=== PATIENT | female | born 1950 | race Caucasian/White ===

== ENCOUNTER 2017-01-14 08:40 | Emergency (ER) | payer OTHER ==
[2017-01-14 08:46] VITALS: TEMP 98.6; BMI 28.8
--- NOTE | 2017-01-14 09:20 | PDOC ---
History of Present Illness - General History Source: Patient Exam Limitations: No Limitations - History of Present Illness Initial Comments: 01/14/17 09:47 The patient is a 66 year old female with a significant PMH of CVA, COPD, CAD s/ p stents, HTN, hyperlipidemia, thyroid disease, lung CA who presents to the emergency department with left hand and left foot pain s/p fall 1 week ago. The patient states that she has taken Ambien and trazadone for sleep aide for the past 2 years, and has noted that she has been sleepwalking during the past 2 months. She reports going to the kitchen to eat, then falling sleeping on feet and falling 3 times previously and doesnt remember the falls when they occur. The patient states that she fell in this way last Friday, resulting in left hand pain along the 1st-3rd th fingers and left foot pain along the 5th toe. The patient notes taking Motrin this morning to some relief. She does not think she hit her head, as she has had no headache, neck pain, back pain, other extremity pain. The patient denies chest pain, shortness of breath, headache and dizziness. Denies fever, chills, nausea, vomit, diarrhea and constipation. Denies dysuria, frequency, urgency and hematuria. Allergies: NKA Past surgical history: Cardia stent insertions. Lobectomy. Lumbar fusion & right total hip replacement. Social history: No reported cigarette, alcohol, or drug use. PCP: Dr. Mena <Christopher Cleveland - Last Filed: 01/14/17 09:47> <Miguelito Jerez - Last Filed: 01/14/17 19:36> - General Chief Complaint: Injury Stated Complaint: INJURY/HTN/EDEMA Time Seen by Provider: 01/14/17 09:09 Past History <Christopher Cleveland - Last Filed: 01/14/17 09:47> - Past Medical History Anemia: Yes (IRON DEFICIENCY ANEMIA) Asthma: No Cancer: Yes (RIGHT LUNG) Cardiac Disorders: Yes (CAD, [place] 2001, A-FIB, PAD) CVA: Yes (TIA, july 2015) COPD: Yes CHF: No Dementia: No Diabetes: No GI Disorders: Yes (DIVERTICULOSIS,GASTRITIS,HIATAL HERNIA,HEMORRHOIDS) Disorders: No HTN: Yes Hypercholesterolemia: Yes Liver Disease: Yes (PROMINENT CBD, hep C in 2006) Psychiatric Problems: Yes (ANXIETY.) Seizures: No (hx of "twitching" in july 2015) Thyroid Disease: Yes (HYPOTHYROID) Lung CA: Yes (ca, and emphazema, achalasia) - Surgical History Abdominal Surgery: No Appendectomy: No Cardiac Surgery: Yes (seven stents) Cholecystectomy: No Lung Surgery: Yes (lobectomy) Neurologic Surgery: No Orthopedic Surgery: Yes (lumbar fusion; right total hip replacement 12/01/14) - Immunization History Immunization Up to Date: Yes - Suicide/Smoking/Psychosocial Hx Smoking Status: Yes Smoking History: Never smoked Have you smoked in the past 12 months: Yes Number of Cigarettes Smoked Daily: 1 If you are a former smoker, when did you quit?: 2009 Information on smoking cessation initiated: No 'Breaking Loose' booklet given: 12/06/12 Hx Alcohol Use: No Drug/Substance Use Hx: No Substance Use Type: Prescribed, Tranquilizers Hx Substance Use Treatment: Yes (detox, rehab, [facility]) <Miguelito Jerez - Last Filed: 01/14/17 19:36> - Past Medical History Allergies/Adverse Reactions: Allergies Allergy/AdvReac Type Severity Reaction Status Date / Time No Known Allergies Allergy Verified 01/14/17 08:46 Home Medications: Ambulatory Orders Valacyclovir HCl [Valtrex -] 500 mg PO DAILY 04/18/12 Aspirin [ASA -] 81 mg PO DAILY #0 tab.chew 04/22/12 Trazodone HCl [Desyrel -] 200 mg PO HS #0 tablet 12/10/12 Diltiazem [Cardizem -] 120 mg PO DAILY 09/08/14 Venlafaxine HCl ER [Effexor Xr -] 75 mg PO DAILY 09/08/14 Docusate Sodium [Colace -] 100 mg PO BID PRN 12/22/14 Omeprazole [Prilosec (RX)] 40 mg PO DAILY 12/22/14 Pravastatin Sodium [Pravachol -] 20 mg PO HS 12/22/14 Albuterol Sulfate Inhaler - [Ventolin HFA Inhaler -] 2 inh PO Q6H PRN 08/20/15 Budesonide/Formeterol Fumarate [SYMBICORT 80/4.5mcg -] 1 inh PO BID 08/20/15 Cholecalciferol (Vitamin D3) [Vitamin D3] 50,000 unit PO WEEKLY 08/20/15 Multivitamin [Poly-Vitamin] 1 each PO DAILY 08/20/15 Sennosides [Senna] 2 tab PO DAILY 08/20/15 Levothyroxine [Synthroid -] 125 mcg PO DAILY@0700 09/12/15 Zolpidem Tartrate [Ambien] 5 mg PO HS 09/12/15 Albuterol 0.083% Nebulizer Kristi [Ventolin 0.083% Nebulizer Soln -] 1 amp NEB Q6H PRN #0 amp 09/15/15 Ibuprofen [Motrin -] 800 mg PO BID PRN #60 09/15/15 Methadone [Dolophine -] 130 mg PO DAILY 01/18/16 Trauma Specific PMHX - Complaint Specific PMHX Arthritis: Yes <Miguelito Jerez - Last Filed: 01/14/17 19:36> Review of Systems - Review of Systems Able to Perform ROS?: Yes Comments:: 01/14/17 09:47 Constitutional - Pt denies Fever, Chills, weakness, HEENT: denies vision changes, sore throat Respiratory: Denies cough, sob, hemoptysis Cardiac: denies chest pain, palpitations, light headedness, leg swelling Abd/GI: denies abd pain, nausea, vomiting, blood per rectum, melena, diarrhea : denies dysuria, frequency, discharge Musculoskeletal - (+) Left hand pain along 1st & 4th digits. (+) Left foot pain along 5th digit. denies back pain, joint swelling Skin - denies bruising, erythema, rash Neurological: denies headache, numbness, focal weakness, tingling, ataxia, weakness Hematologic: denies anemia, easy bruising, easy bleeding <Christopher Cleveland - Last Filed: 01/14/17 09:47> *Physical Exam - Vital Signs Last Vital Signs Temp Pulse Resp BP Pulse Ox 98.6 F 86 17 182/74 92 L 01/14/17 08:41 01/14/17 08:41 01/14/17 08:41 01/14/17 08:41 01/14/17 08:41 - Physical Exam Comments: 01/14/17 09:48 GENERAL: The patient is awake, alert, and fully oriented, Nontoxic - in no acute distress. HEAD: Normocephalic, atraumatic. EYES: extraocular movements intact, sclera anicteric, conjunctiva clear. NECK: Normal range of motion, supple ABDOMEN: Soft, nontender, EXTREMITIES: Normal range of motion of shoulder/elbows/wrists/hip/knee/ankle, mild tenderness to palpation at the L 2-3 metacarpals and along base of thumb, mild pitting edema without any erythema/induration, no tenderness in the wrist, mild tenderness at L pinky toe, no tenderness at 5th metatarsal, or on dorsum of foot, mild pitting edema b/l on LE NEUROLOGICAL: No facial assymetry, Normal speech, PSYCH: Normal mood, normal affect. SKIN: Warm, Dry, normal turgor, BACK: No focal mildline tenderness on cervical/thoracic/lumbar region <Christopher Cleveland - Last Filed: 01/14/17 09:47> - Vital Signs Last Vital Signs Temp Pulse Resp BP Pulse Ox 98.6 F 86 17 182/74 92 L 01/14/17 08:41 01/14/17 08:41 01/14/17 08:41 01/14/17 08:41 01/14/17 08:41 <Miguelito Jerez - Last Filed: 01/14/17 19:36> Procedures - Consent Consent obtained: Verbal - Splinting Splint Location: Left: Wrist Pre-Proc Neuro Vasc Exam: normal Hand-Made Type: orthoglass Splint Type: Yes: Ulnar Post-Proc Neuro Vasc Exam: normal Naldo Bandage: 4" Sling: Yes Complications: No Post splint xray: No Good repositioning: No <Miguelito Jerez - Last Filed: 01/14/17 19:36> Medical Decision Making - Medical Decision Making 01/14/17 09:27 66y F hx of cva, copd, cad s/p stents, htn, hl, thyroid disease, lung ca, presents s/p fall - pt states that she took ambien and trazadone as sleep aides and she occasionally sleepwalk, last week, she thinks she did so again and fell when she was in the kitchen. she has had pain to her L hand and L pinky toe since. No other injuries including head injury, neck pain, chets pain, back pain. pts vitals reviewed noted for sat of 92, suspect may be secondary to her copd On exam pt has some edema and mild tenderness on her left hand and L pinky will ck xrays to r/o fx pt declines pain meds currently. A portion of this note was documented by scribe services under my direction. I have reviewed the details of the note, within reason, and agree with the documentation with the following case summary and management plan written by me 01/14/17 11:04 pts xrays noted for olbique slightly displaced fracture i midshaft of 4th metacarpal with minimally displaced fx at the base of 3rd proximal phylanx. pt put in a ulnar gutter dw with PA from dr. felder service agree with management will see the pt today if she can make it over to their office pt states she is unsure due to her transportation requiring approval and some lead time. <Miguelito Jerez - Last Filed: 01/14/17 19:36> *DC/Admit/Observation/Transfer - Attestations Scribe Attestion: 01/14/17 09:48 Documentation prepared by Christopher Cleveland, acting as medical billing clerk for Miguelito Jerez MD. <Christopher Cleveland - Last Filed: 01/14/17 09:47> - Discharge Dispostion Admit: No <Miguelito Jerez - Last Filed: 01/14/17 19:36> Diagnosis at time of Disposition: Metacarpal bone fracture Qualifiers: Encounter type: initial encounter Metacarpal bone: fourth Fracture type: closed Metacarpal location: shaft Fracture alignment: displaced Laterality: left Qualified Code(s): S62.325A - Displaced fracture of shaft of fourth metacarpal bone, left hand, initial encounter for closed fracture Finger fracture, left Qualifiers: Encounter type: initial encounter Finger: middle finger Fracture type: closed Phalanx: proximal Fracture alignment: displaced Qualified Code(s): S62.613A - Displaced fracture of proximal phalanx of left middle finger, initial encounter for closed fracture - Discharge Dispostion Disposition: HOME Condition at time of disposition: Improved - Referrals Referrals: Jessica Mena MD [Primary Care Provider] - Pradeep Davies MD [Staff Physician] - - Patient Instructions Printed Discharge Instructions: DI for Finger Fracture Additional Instructions: Return to the emergency department immediately with ANY new, persistent or worsening symptoms. Keep your splint dry. See orthopedics in 2-3 days for evaluation. Take tyolenol or ibuprofen for pain Keep your arm elevated to minimze swelling. You MUST call and follow up with your orthopedist in 2-3 days for further evaluation of your symptoms. Results were discussed with you. Please make sure your doctor reviews the results of your emergency evaluation. Print Language: ROMANSH
[2017-01-14 12:49] VITALS: BP 153/104; PULSE 79
== END 2017-01-14 12:50 | disposition home or self-care (01) ==
LOC: JER 08:40
PROC: 2W3DX1Z Immobilization of Left Lower Arm using Splint (ICD-10-PCS; principal; 2017-01-14)
DX: S62.325A Displaced fracture of shaft of fourth metacarpal bone, left hand, initial encounter for closed fracture (principal); S62.613A Displaced fracture of proximal phalanx of left middle finger, initial encounter for closed fracture; W18.39XA Other fall on same level, initial encounter; Y93.89 Activity, other specified; Y92.030 Kitchen in apartment as the place of occurrence of the external cause; I25.10 Atherosclerotic heart disease of native coronary artery without angina pectoris; I10 Essential (primary) hypertension; Z95.5 Presence of coronary angioplasty implant and graft; Z87.891 Personal history of nicotine dependence; F11.20 Opioid dependence, uncomplicated; J44.9 Chronic obstructive pulmonary disease, unspecified; E78.00 Pure hypercholesterolemia, unspecified; I48.91 Unspecified atrial fibrillation; Z79.01 Long term (current) use of anticoagulants; E03.9 Hypothyroidism, unspecified; F41.9 Anxiety disorder, unspecified; Z85.118 Personal history of other malignant neoplasm of bronchus and lung
CPT/HCPCS: 29125; 73110-TC-LT; 73130-TC-LT; 73630-TC-LT; 99282-25

== ENCOUNTER 2017-04-08 18:20 | Emergency (ER) | payer OTHER ==
--- NOTE | 2017-04-08 19:23 | PDOC ---
Rapid Medical Evaluation Medical Evaluation: Allergies Allergy/AdvReac Type Severity Reaction Status Date / Time No Known Allergies Allergy Verified 01/14/17 08:46 04/08/17 19:21 I have performed a brief in-person evaluation of this patient. The patient presents with a chief complaint of pain to right wrist after slip and fall today. Patient reports slipped on water today and fell onto right side of body. Denies hitting head or loosing consciousness. Denies numbness in fingertips Pertinent physical exam findings: NAD unlabored breathing heart s1s2 right wrist with deformity, unable to pronate, supinate, flex or extend I have ordered the following: xray analgesia iv site The patient will proceed to the Ed for further evaluation.
[2017-04-08 19:30] VITALS: BP 148/78; PULSE 96; TEMP 98.6; BMI 29.2
--- NOTE | 2017-04-08 20:14 | PDOC ---
History of Present Illness - General History Source: Patient - History of Present Illness Initial Comments: 04/08/17 20:52 The patient is a 67 year old female with a significant PMH of CVA, COPD, CAD s/ p stents, HTN, hyperlipidemia, thyroid disease, lung CA who presents to the emergency department s/p slip and fall landing on outstretched right arm today. The patient reports pain, swelling, and bruising to her right wrist. She is right hand dominant. She denies numbness or tingling to right hand or digits. The patient denies chest pain, shortness of breath, headache and dizziness. Denies fever, chills, nausea, vomit, diarrhea and constipation. Denies dysuria, frequency, urgency and hematuria. Allergies: NKA Past surgical history: Cardiac stent insertions. Lobectomy. Lumbar fusion & right total hip replacement. Social history: No reported cigarette, alcohol, or drug use. PCP: Dr. Mena <Santa Coreas - Last Filed: 04/08/17 20:52> - General History Source: Patient <Ralph Rodarte - Last Filed: 04/09/17 19:34> - General Chief Complaint: Bone Injury Stated Complaint: INJURY Time Seen by Provider: 04/08/17 20:06 Past History <Santa Coreas - Last Filed: 04/08/17 20:52> - Past Medical History Anemia: Yes (IRON DEFICIENCY ANEMIA) Asthma: No Cancer: Yes (RIGHT LUNG) Cardiac Disorders: Yes (CAD, [place] 2001, A-FIB, PAD) CVA: Yes (TIA, july 2015) COPD: No CHF: No Dementia: No Diabetes: No GI Disorders: Yes (DIVERTICULOSIS,GASTRITIS,HIATAL HERNIA,HEMORRHOIDS) Disorders: No HTN: Yes Hypercholesterolemia: Yes Liver Disease: Yes (PROMINENT CBD, hep C in 2006) Psychiatric Problems: Yes (ANXIETY.Methadone program x 30 years) Seizures: No (hx of "twitching" in july 2015) Thyroid Disease: Yes (HYPOTHYROID) Lung CA: Yes (ca, and emphazema, achalasia) - Surgical History Abdominal Surgery: No Appendectomy: No Cardiac Surgery: Yes (seven stents, angiogram 03/2017) Cholecystectomy: No Lung Surgery: Yes (lobectomy) Neurologic Surgery: No Orthopedic Surgery: Yes (lumbar fusion; right total hip replacement 12/01/14) - Immunization History Immunization Up to Date: Yes - Suicide/Smoking/Psychosocial Hx Smoking Status: Yes Smoking History: Former smoker Have you smoked in the past 12 months: No Number of Cigarettes Smoked Daily: 1 If you are a former smoker, when did you quit?: 2009 Information on smoking cessation initiated: No 'Breaking Loose' booklet given: 12/06/12 Hx Alcohol Use: No Drug/Substance Use Hx: Yes (30 yrs ago) Substance Use Type: Prescribed, Tranquilizers Hx Substance Use Treatment: Yes (detox, rehab, [facility]) <Ralph Rodarte - Last Filed: 04/09/17 19:34> - Past Medical History Allergies/Adverse Reactions: Allergies Allergy/AdvReac Type Severity Reaction Status Date / Time No Known Allergies Allergy Verified 04/08/17 22:24 Home Medications: Ambulatory Orders Valacyclovir HCl [Valtrex -] 500 mg PO DAILY 04/18/12 Aspirin [ASA -] 81 mg PO DAILY #0 tab.chew 04/22/12 Trazodone HCl [Desyrel -] 200 mg PO HS #0 tablet 12/10/12 Diltiazem [Cardizem -] 120 mg PO DAILY 09/08/14 Venlafaxine HCl ER [Effexor Xr -] 75 mg PO DAILY 09/08/14 Docusate Sodium [Colace -] 100 mg PO BID PRN 12/22/14 Omeprazole [Prilosec (RX)] 40 mg PO DAILY 12/22/14 Pravastatin Sodium [Pravachol -] 20 mg PO HS 12/22/14 Albuterol Sulfate Inhaler - [Ventolin HFA Inhaler -] 2 inh PO Q6H PRN 08/20/15 Budesonide/Formeterol Fumarate [SYMBICORT 80/4.5mcg -] 1 inh PO BID 08/20/15 Cholecalciferol (Vitamin D3) [Vitamin D3] 50,000 unit PO WEEKLY 08/20/15 Multivitamin [Poly-Vitamin] 1 each PO DAILY 08/20/15 Sennosides [Senna] 2 tab PO DAILY 08/20/15 Levothyroxine [Synthroid -] 125 mcg PO DAILY@0700 09/12/15 Zolpidem Tartrate [Ambien] 5 mg PO HS 09/12/15 Albuterol 0.083% Nebulizer Kristi [Ventolin 0.083% Nebulizer Soln -] 1 amp NEB Q6H PRN #0 amp 09/15/15 Ibuprofen [Motrin -] 800 mg PO BID PRN #60 09/15/15 Methadone [Dolophine -] 130 mg PO DAILY 01/18/16 Ibuprofen 800 mg PO TID #30 tablet 04/08/17 Oxycodone HCl/Acetaminophen [Percocet 5-325 mg Tablet] 1 - 2 tab PO Q6H #20 tablet MDD 4 04/08/17 Review of Systems - Review of Systems Able to Perform ROS?: Yes Comments:: 04/08/17 20:53 CONSTITUTIONAL: Absent: fever, no chills, no fatigue HEAD: Absent: trauma EYES: Absent: visual changes ENT: Absent: ear pain, no sore throat CARDIOVASCULAR: Absent: chest pain, no palpitations RESPIRATORY: Absent: cough, no SOB GI: Absent: abdominal pain, no nausea, no vomiting, no constipation, no diarrhea GENITOURINARY: Absent: dysuria, no frequency, no hematuria MUSCULOSKELETAL: (+) right wrist, pain, swelling, and bruising. Absent: back pain, no neck pain. SKIN: Absent: rash NEURO: Absent: headache <Santa Coreas - Last Filed: 04/08/17 20:52> *Physical Exam - Vital Signs Last Vital Signs Temp Pulse Resp BP Pulse Ox 98.6 F 96 H 20 148/78 95 04/08/17 19:26 04/08/17 19:26 04/08/17 19:26 04/08/17 19:26 04/08/17 19:26 - Physical Exam Comments: 04/08/17 20:54 GENERAL: Well-appearing, well-nourished. No apparent distress. HEENT: Normocephalic, atraumatic. PERRL, EOM intact. CARDIOVASCULAR: Normal S1, S2. Regular rate and rhythm. PULMONARY: Clear to auscultation bilaterally. ABDOMEN: Soft, non-distended, non-tender. EXTREMITIES: (+) Right wrist has obvious deformity, tenderness to palpation, ecchymosis, pulses intact and symmetric, extremity is warm. ROM of right wrist deferred secondary to pain. Remainder of extremities are normal without gross deformities. SKIN: Warm, dry. No rash NEUROLOGICAL: No focal neurological deficits. <Santa Coreas - Last Filed: 04/08/17 20:52> - Vital Signs Last Vital Signs Temp Pulse Resp BP Pulse Ox 98.6 F 96 H 20 148/78 95 04/08/17 19:26 04/08/17 19:26 04/08/17 19:26 04/08/17 19:26 04/08/17 19:26 <Ralph Rodarte - Last Filed: 04/09/17 19:34> Procedures - Splinting Splint Location: Left: Wrist Pre-Proc Neuro Vasc Exam: normal (disorder) Hand-Made Type: fiberglass Splint Type: Yes: Sugar Tong Post-Proc Neuro Vasc Exam: normal (Pt had redudction and splint under conscious sedation. Pt tolerated procedure well. ) <Ralph Rodarte - Last Filed: 04/09/17 19:34> ED Treatment Course - Medications Given in the ED: ED Medications Discontinued Medications Generic Name Dose Route Start Last Admin Trade Name Freq PRN Reason Stop Dose Admin Oxycodone/Acetaminophen 1 combo 04/08/17 20:15 04/08/17 20:22 Percocet 5/325 - PO 04/08/17 20:16 1 combo ONCE ONE Administration <Santa Coreas - Last Filed: 04/08/17 20:52> Medical Decision Making - Medical Decision Making 04/09/17 19:31 Dr. Rodarte: The scribe's documentation has been prepared under my direction and personally reviewed by me in its entirery. I confirm that the note above accurately reflects all work, treatment, procedures, and medical decision making performed by me. <Ralph Rodarte - Last Filed: 04/09/17 19:34> *DC/Admit/Observation/Transfer - Attestations Scribe Attestion: 04/08/17 20:58 Documentation prepared by Santa Coreas, acting as medical review coordinator for Ralph Rodarte DO <Santa Coreas - Last Filed: 04/08/17 20:52> - Discharge Dispostion Admit: No <Ralph Rodarte - Last Filed: 04/09/17 19:34> Diagnosis at time of Disposition: Fracture of right distal radius Qualifiers: Encounter type: initial encounter Fracture type: closed - Discharge Dispostion Disposition: HOME Condition at time of disposition: Stable - Prescriptions Prescriptions: Ibuprofen 800 mg PO TID #30 tablet Oxycodone HCl/Acetaminophen [Percocet 5-325 mg Tablet] 1 - 2 tab PO Q6H #20 tablet MDD 4 - Referrals Referrals: Jessica Mena MD [Primary Care Provider] - Yann Fan MD [Staff Physician] - - Patient Instructions Printed Discharge Instructions: How to Use a Sling Additional Instructions: rest, ice elevate, right arm. Please take medication as directed. Follow up with the orthopedist referred to you here in the department or by your primary care. Apply ice to right wrist at this three times daily for 10 mins. - Post Discharge Activity
[2017-04-08] MEDS ORDERED: HYDROmorphone HCL CARPU-JECT 1 MG/1 ML DISP.SYRIN IVPUSH ONE ×4 (20:29→22:21)
[2017-04-08] MEDS ORDERED: ONDANSETRON 4 MG/2 ML VIAL IVPUSH STA (20:29)
[2017-04-08] MEDS ORDERED: HYDROmorphone HCL CARPU-JECT 1 MG/1 ML DISP.SYRIN ONE ×2 (20:57→22:03)
[2017-04-08] MEDS ORDERED: ONDANSETRON 4 MG/2 ML VIAL ONE (20:57)
[2017-04-08] MEDS ORDERED: ETOMIDATE 20 MG/10 ML AMPUL IVPUSH ONE ×2 (21:50→22:13)
[2017-04-08] MEDS ORDERED: HYDROmorphone HCL CARPU-JECT 2 MG/1 ML DISP.SYRIN ONE (22:26)
[2017-04-08] MEDS ORDERED: IBUPROFEN 400 MG TABLET (FP) PO ONE (23:53)
[2017-04-09] MEDS ORDERED: IBUPROFEN 400 MG TABLET (FP) PO ONE (00:20)
== END 2017-04-09 00:30 | disposition home or self-care (01) ==
LOC: JER 18:20
PROC: 2W3CX1Z Immobilization of Right Lower Arm using Splint (ICD-10-PCS; principal; 2017-04-08)
PROC: 3E033NZ Introduction of Analgesics, Hypnotics, Sedatives into Peripheral Vein, Percutaneous Approach (ICD-10-PCS; 2017-04-08)
PROC: 3E033GC Introduction of Other Therapeutic Substance into Peripheral Vein, Percutaneous Approach (ICD-10-PCS; 2017-04-08)
PROC: 0PSHXZZ Reposition Right Radius, External Approach (ICD-10-PCS; 2017-04-08)
DX: S52.501A Unspecified fracture of the lower end of right radius, initial encounter for closed fracture (principal); W18.39XA Other fall on same level, initial encounter; Y93.89 Activity, other specified; Y92.9 Unspecified place or not applicable; I10 Essential (primary) hypertension; E78.5 Hyperlipidemia, unspecified; E07.9 Disorder of thyroid, unspecified; Z85.118 Personal history of other malignant neoplasm of bronchus and lung
CPT/HCPCS: 73110-TC-RT; 73130-TC-RT; 99281-25

== ENCOUNTER 2017-04-23 08:53 | Day surgery (SDC) | payer OTHER ==
[2017-04-22 12:02] VITALS: BMI 27.9
--- NOTE | 2017-04-23 11:02 | HP ---
Satellite H - Chief Complaint Chief Complaint: right wrist fx - Past Medical History Allergies/Adverse Reactions: Allergies Allergy/AdvReac Type Severity Reaction Status Date / Time No Known Allergies Allergy Verified 04/23/17 10:50 Cardiovascular: Yes: CAD, HTN, Other (PAF) Pulmonary: Yes: Cancer (history of lung cancer), COPD Gastrointestinal: Yes: GERD Musculoskeletal: Yes: Osteoarthritis Endocrine: Yes: Hypothyroidism - Current Medications Current Medications: Home Medications Medication Instructions Recorded Aspirin [ASA -] 81 mg PO DAILY #0 tab.chew 04/22/12 Albuterol Sulfate Inhaler - 2 inh PO Q6H PRN 08/20/15 [Ventolin HFA Inhaler -] Budesonide/Formeterol Fumarate 1 inh PO BID 08/20/15 [SYMBICORT 80/4.5mcg -] Cholecalciferol (Vitamin D3) 50,000 unit PO WEEKLY 08/20/15 [Vitamin D3] Clopidogrel Bisulfate [Plavix] 75 mg PO DAILY 04/22/17 Diltiazem Cd [Cardizem Cd -] 1 cap DAILY 04/22/17 Docusate Sodium [Colace -] 100 mg PO BID 04/22/17 Levothyroxine [Synthroid -] 125 mcg PO DAILY 04/22/17 Methadone [Dolophine -] 130 mg PO DAILY 04/22/17 Multivit ([facility] Formulary) 1 cap PO DAILY 04/22/17 Omeprazole 40 mg PO DAILY 04/22/17 Oxycodone HCl/Acetaminophen 1 - 2 tab PO PRN PRN 04/22/17 [Oxycodone-Acetaminophen 5-325] Pravastatin Sodium [Pravachol -] 20 mg PO HS 04/22/17 Senna - 2 cap PO DAILY 04/22/17 Valacyclovir HCl [Valtrex -] 500 mg PO DAILY 04/22/17 Venlafaxine HCl ER [Effexor Xr -] 75 mg PO DAILY 04/22/17 Satellite Physical Exam - Physical Examination Vital Signs: Vital Signs Period Temp Pulse Resp BP Sys/Roman Pulse Ox Last 24 Hr 98.6 F-98.6 F 75-75 20-20 173-173/82-82 96 General Appearance: Well Nourished, Well Developed, Alert & Oriented x3 ENT: Clear Lung: Normal air movement Heart: Regular rate & rhythm Extremities: Other (right wrist- splint intact, + swelling, + ttp, decr rom, nvi xrays show displaced distl radius fx) Neurological: Intact, Alert, Oriented Satellite Impression/Plan - Impression/Plan Impression: right distal radius fx Operative Procedure: right distal radius orif Date to be Performed: 04/23/17
[2017-04-23] MEDS ORDERED: ROPIVACAINE HCL 0.5% 30ML VIAL ONE (11:28)
[2017-04-23] MEDS ORDERED: MIDAZOLAM HCL 2 MG/2 ML SINGLE DOSE VIAL ONE ×3 (11:30→13:18)
[2017-04-23] MEDS ORDERED: ceFAZolin SODIUM 1 GM VIAL IVPB ONE (12:55)
--- NOTE | 2017-04-23 14:24 | OP ---
Operative Note - Note: [facility] Pre-Operative Diagnosis: right distal radius fx Operation: right distal radius ORIF, brachioradialis tenotomy Post-Operative Diagnosis: Same as Pre-op Surgeon: Yann Fan Parts Salesperson: Dakota Burk Anesthesiologist/ANDROID PROGRAMMER: Lavon Becerra Anesthesia: Local, MAC Estimated Blood Loss (mls): 0 (tourniquet) Operative Report Dictated: Yes
[2017-04-23] MEDS ORDERED: ONDANSETRON 4 MG/2 ML VIAL IVPUSH PRN (14:28)
[2017-04-23] MEDS ORDERED: oxyCODONE HCL 5 MG TABLET PO PRN (14:28)
[2017-04-23] MEDS ORDERED: LACTATED RINGERS SOLUTION 1,000 ML IV SCH (14:30)
[2017-04-23 17:51] VITALS: BP 140/67; PULSE 67; TEMP 97.8
--- NOTE | 2017-04-24 07:46 | OP ---
DATE OF OPERATION: 04/23/2017 PREOPERATIVE DIAGNOSIS: Right distal radius fracture. POSTOPERATIVE DIAGNOSIS: Right distal radius fracture. PROCEDURE: Open reduction, internal fixation of right distal radius and brachioradialis tenotomy. [employer] low profile volar DVR titanium plate. SURGEON: Vance Fang MD PRECISION INSTRUMENT MAKER: CORBIN [place], ANESTHESIA: LMA anesthesia and right interscalene block. DRAINS: None. COMPLICATIONS: None. SPECIMENS: None. BLOOD LOSS: None. BLOOD GIVEN: None. FLUID REPLACEMENT: 1000 mL. INDICATION FOR PROCEDURE: The patient is a 67-year-old female with a preoperative diagnosis of a highly comminuted, unstable right distal radius fracture. After understanding the potential risks, complications, alternatives, and benefits of surgery versus nonsurgical treatment, the patient elected to undergo this procedure. DESCRIPTION: The patient was taken to the operating room and IV sedation was given and 1 gram of IV Ancef. LMA anesthesia was induced after a right interscalene block was performed. The entire case was done under a 3.8 loupe magnification and typical FCR approach incision was marked out with a marking pen. The right upper extremity was prepped and draped in the usual sterile fashion, elevated and exsanguinated with an Esmarch bandage and tourniquet inflated to 250 mm of mercury. A No. 15 scalpel was utilized to cut through the skin. Hemostasis was achieved with bipolar cautery. Dissection was done with Webril scissors down to the FCR tendon. Self-retaining Weitlaner retractors were placed into the wound. A fresh No. 15 scalpel was utilized to cut down through the roof of the FCR and then the floor of the FCR tendon. Using blunt dissection, I was able to get down to the pronator quadratus. Two Weitlaner retractors were placed into the wound. The FCR tendon was partially protecting the radial artery. Using a fresh No. 15 scalpel blade, I was able to cut the pronator quadratus off the distal radius in an L-shaped fashion for potential later repair. A portion of it was already torn. The No. 15 scalpel blade, as well as the periosteal elevator were utilized to take the rest of the pronator quadratus off the distal radius, exposing the fracture site. The area was manipulated. Irrigation was used and all soft tissue and hematoma debris was removed. There was some periosteum and muscle in the fracture fragment site; this was removed as well. Prior to reduction, I had to do a brachioradialis tenotomy in order to reduce the distal radius and the radial styloid and used a 0.062 K-wire for temporary fixation until the plate was on. I then did a provisional reduction, trying to piece all the pieces together. There was some mild metaphyseal bone loss from the crush of the injury. I used a standard titanium low profile hand innervations plate and put it on the right distal radius with the provisional reduction and held it in place with 2 K-wires. X-rays were taken in AP level multiple oblique planes and I was quite happy with the decision of the hardware. The subchondral support position, as well as the fracture reduction and fracture fragment. Then using a standard technique, first with a 2.5mm drill bit and putting in 3.5mm screws and then using the 1.5mm drill, putting in 2.5mm screws and put a total of 3 proximal purple screws of 12, 12 and 14mm in length and then a total of 7 distal screws. These were all partially threaded locking screws, through the distal aspect of the plate because of the high comminuted nature of the fracture fragments for more fracture-specific fixation, holding all the fracture fragments for fracture specific fixation including the MIRYAM piece and the radial styloid. X-rays were taken along the way multiple times to document subchondral support position, as well as fragment specific fixation. Overall it looked quite good and I was quite happy with the position of the wrist, bones and distal radius fracture fragments. All the guides were removed and accounted for. The area was copiously irrigated and washed out. Final x-rays were taken and closure was done. Closure was done with 0-Vicryl closing the pronator quadratus back over the plate. The 4-0 undyed Vicryl was used to close the deep dermal layer. Final skin reapproximated was done with a running subcuticular 4-0 Biosyn and then washed, dried, covered with Steri strips, 4x4 between the fingers, Webril and a volar fiberglass splint was applied, wrapped with Karen and Cobain. The tourniquet was taken down after a total tourniquet time of 68 minutes. There were no complications during the case. The patient tolerated the procedure well and was brought to the ambulatory recovery room in stable condition. VANCE FANG M.D. [id number]
== END 2017-04-23 17:15 | disposition home or self-care (01) ==
LOC: JASU-SURG 08:53
PROVIDERS: ATTEND Orthopaedic Surgery
PROC: 0PSH04Z Reposition Right Radius with Internal Fixation Device, Open Approach (ICD-10-PCS; principal; 2017-04-23 11:00)
DX: S52.501A Unspecified fracture of the lower end of right radius, initial encounter for closed fracture (principal); X58.XXXA Exposure to other specified factors, initial encounter; Y93.9 Activity, unspecified; Y92.9 Unspecified place or not applicable; Y99.9 Unspecified external cause status
CPT/HCPCS: 36415; 76000-TC; 84132; 94760

== ENCOUNTER 2017-08-01 01:36 | Observation (INO) | payer OTHER ==
[2017-08-01] MEDS ORDERED: morphine CARPU-JECT 4 MG/1 ML DISP.SYRIN IVPUSH ONE (01:39)
[2017-08-01] MEDS ORDERED: ONDANSETRON 4 MG/2 ML VIAL IVPUSH STA (01:40)
[2017-08-01] MEDS ORDERED: CEFAZOLIN 1 GM in DEXTROSE 5%-WATER - 50 ML IVPB ONE (01:46)
--- NOTE | 2017-08-01 01:55 | PDOC ---
Attending Attestation - Resident Resident Name: Ronnie Roberts - ED Attending Attestation I have performed the following: I have examined & evaluated the patient, The case was reviewed & discussed with the resident, I agree w/resident's findings & plan, Exceptions are as noted - HPI HPI: 08/01/17 01:52 Pt s/p fall denies LOC. c/o pain to right wrist. +deformity. H/o right wrist fx. H/o ORIF. Right hand dominant - Physicial Exam PE: 08/01/17 01:53 *Physical Exam General Appearance: Yes: Appropriately Dressed. No: Apparent Distress, Intoxicated HEENT: positive: EOMI, CARMEN, Normal ENT Inspection, Normal Voice, TMs Normal, Pharynx Normal. negative: Pale Conjunctivae, Photophobia, Scleral Icterus (R), Scleral Icterus (L) Neck: positive: Trachea midline, Normal Thyroid, Supple. negative: Tender, Rigid, Carotid bruit, Stridor, Lymphadenopathy (R), Lymphadenopathy (L), Thyromegaly Respiratory/Chest: positive: Lungs Clear, Normal Breath Sounds. negative: Chest Tender, Respiratory Distress, Accessory Muscle Use, Labored Respiration, RES, Crackles, Rales, Rhonchi, Stridor, Wheezing, Dullness Cardiovascular: positive: Regular Rhythm, Regular Rate, S1, S2. negative: Edema , JVD, Murmur, Bradycardia, Tachycardia Vascular Pulses: Dorsalis-Pedis (R): 2+, Doralis-Pedis (L): 2+ Gastrointestinal/Abdominal: positive: Normal Bowel Sounds, Flat, Soft. negative : Tender, Organomegaly, Pulsatile Mass, Increased Bowel Sounds, Decreased BS, Distended, Guarding, Rebound, Hernia, Hepatomegaly, Spleenomegaly Lymphatic: negative: Adenopathy, Tenderness Musculoskeletal: positive: Normal Inspection. negative: CVA Tenderness, Decreased Range of Motion Extremity: positive: Normal Capillary Refill, + deformity to right wrist, small laceration to medial aspect of wrist at deformity + tenderness Pelvis Stable. negative: Pedal Edema, Swelling, Erythema Integumentary: positive: Normal Color, Dry, Warm. negative: Cyanotic, Erythema , Jaundice, Rash Neurologic: positive: radiologist physician II-XII NML intact, Fully Oriented, Alert, Normal Mood/ Affect, Motor Strength 5/5. negative: EOM Palsy, Facial Droop, Sensory Deficit - Medical Decision Making 08/01/17 02:58 Pt admitted for surgical wash in the OR.
[2017-08-01] MEDS ORDERED: ceFAZolin SODIUM 1 GM VIAL ONE ×3 (02:12→20:57)
--- NOTE | 2017-08-01 02:37 | PDOC ---
History of Present Illness - General Chief Complaint: Injury Stated Complaint: FRACTURE OF WRIST Time Seen by Provider: 08/01/17 01:38 History Source: Patient Exam Limitations: No Limitations - History of Present Illness Initial Comments: 08/01/17 02:31 Patient is a 67F with history of OK in 2001 s/p stents x7, emphysema, PAD, HCV ( undetectable), lung cancer (40% of right lung), hypothyroidism, achalasia, total hip replacement, wrist fracture in right hand and metacarpal bones in left hand here today complaining of R wrist pain after a slip and fall. Patient denies LOC, chest pain, shortness of breath, and prodromal symptoms. Denies head trauma. Takes aspirin. Patient is on no blood thinners. Patient states she had surgery to fix the same wrist this March by Dr Fan. Past History - Past Medical History Allergies/Adverse Reactions: Allergies Allergy/AdvReac Type Severity Reaction Status Date / Time No Known Allergies Allergy Verified 04/23/17 10:50 Home Medications: Ambulatory Orders Aspirin [ASA -] 81 mg PO DAILY #0 tab.chew 04/22/12 Albuterol Sulfate Inhaler - [Ventolin HFA Inhaler -] 2 inh PO Q6H PRN 08/20/15 Budesonide/Formeterol Fumarate [SYMBICORT 80/4.5mcg -] 1 inh PO BID 08/20/15 Cholecalciferol (Vitamin D3) [Vitamin D3] 50,000 unit PO WEEKLY 08/20/15 Diltiazem Cd [Cardizem Cd -] 1 cap PO DAILY 04/22/17 Levothyroxine [Synthroid -] 125 mcg PO DAILY 04/22/17 Methadone [Dolophine -] 130 mg PO DAILY 04/22/17 Omeprazole 40 mg PO DAILY 04/22/17 Pravastatin Sodium [Pravachol -] 20 mg PO HS 04/22/17 Valacyclovir HCl [Valtrex -] 500 mg PO DAILY 04/22/17 Venlafaxine HCl ER [Effexor Xr -] 75 mg PO DAILY 04/22/17 Furosemide [Lasix -] 40 mg PO DAILY 05/08/17 Multivitamin [Multiple Vitamins] 1 each PO DAILY 05/08/17 Sennosides [Senna] 2 tab PO DAILY 05/08/17 Docusate Sodium [Colace -] 100 mg PO TID #90 capsule 06/24/17 Zolpidem Tartrate [Ambien] 5 mg PO HS 07/03/17 traZODone HCL [Desyrel -] 100 mg PO HS 07/03/17 Bupropion HCl [Wellbutrin Xl -] 150 mg PO BID 08/01/17 Lactulose (Oral Use) [Cephulac -] 20 gm PO ASDIR 08/01/17 Magnesium Oxide [Magnesium] 400 mg PO DAILY 08/01/17 Naloxegol Oxalate [Movantik] 25 mg PO ASDIR 08/01/17 Potassium Chloride [K-Tab ER] 20 meq PO DAILY 08/01/17 Prochlorperazine Maleate [Compazine] 10 mg PO AC PRN 08/01/17 Anemia: No Asthma: No Cancer: Yes (2009, removed 03/27 rul, no chemo) Cardiac Disorders: Yes (CArdiac stent 03/31/17) CVA: No COPD: Yes CHF: No Dementia: No Diabetes: No GI Disorders: Yes (dilated esophagus) Disorders: No HTN: Yes Hypercholesterolemia: No Liver Disease: No Psychiatric Problems: Yes (ANXIETY.Methadone program x 30 years) Seizures: No Thyroid Disease: Yes (on meds) Lung CA: Yes (ca, and emphazema, achalasia) - Surgical History Abdominal Surgery: No Appendectomy: No Cardiac Surgery: Yes (seven stents, angiogram 03/2017) Cholecystectomy: No Lung Surgery: Yes (partial right lobectomy for ca, no chemo or radiation) Neurologic Surgery: No Orthopedic Surgery: Yes (right hip replacement 2013) - Immunization History Immunization Up to Date: Yes - Suicide/Smoking/Psychosocial Hx Smoking Status: Yes Smoking History: Unknown if ever smoked Have you smoked in the past 12 months: No Number of Cigarettes Smoked Daily: 1 If you are a former smoker, when did you quit?: 2009 'Breaking Loose' booklet given: 12/06/12 Hx Alcohol Use: No Drug/Substance Use Hx: Yes (none x 5 years) Substance Use Type: Heroin, Tranquilizers Hx Substance Use Treatment: Yes (methadone program , hx detox, rehab) Review of Systems - Review of Systems Comments:: 08/01/17 02:36 GENERAL/CONSTITUTIONAL: No fever or chills. No weakness. HEAD, EYES, EARS, NOSE AND THROAT: No change in vision. No sore throat. CARDIOVASCULAR: No chest pain. Positive for shortness of breath RESPIRATORY: No cough, wheezing, or hemoptysis. GASTROINTESTINAL: Positive for nausea. Negative for vomiting, diarrhea or constipation. GENITOURINARY: No dysuria, frequency, or change in urination. MUSCULOSKELETAL: Positive for right wrist pain. No neck or back pain. SKIN: No rash NEUROLOGIC: No headache, vertigo, loss of consciousness, or change in strength/ sensation. ENDOCRINE: No increased thirst. No abnormal weight change ALLERGIC/IMMUNOLOGIC: No hives or skin allergy. *Physical Exam - Vital Signs Last Vital Signs Temp Pulse Resp BP Pulse Ox 97.9 F 75 16 186/72 96 08/01/17 01:46 08/01/17 01:46 08/01/17 01:46 08/01/17 01:46 08/01/17 01:46 - Physical Exam Comments: 08/01/17 02:37 GENERAL: Awake, alert, and fully oriented, in no acute distress R Wrist: Positive for deformity, 2cm laceration. Neurovascularly intact. 2+ radial pulse. Moves all fingers. Good cap refill. HEAD: No signs of trauma, normocephalic, atraumatic EYES: PERRLA, EOMI, sclera anicteric, conjunctiva clear ENT: Auricles normal inspection, hearing grossly normal, nares patent, oropharynx clear without exudates. Moist mucosa LUNGS: No distress, speaks full sentences, clear to auscultation bilaterally HEART: Regular rate and rhythm, normal S1 and S2, no murmurs, rubs or gallops, peripheral pulses normal and equal bilaterally. ABDOMEN: Soft, nontender, normoactive bowel sounds. No guarding, no rebound. No masses EXTREMITIES: Normal inspection, Normal range of motion, no edema. No clubbing or cyanosis. NEUROLOGICAL: Cranial nerves II through XII grossly intact. Normal speech, no focal sensorimotor deficits SKIN: Warm, Dry, normal turgor, no rashes or lesions noted. ED Treatment Course - LABORATORY CBC & Chemistry Diagram: 08/01/17 01:41 08/01/17 01:41 - Medications Given in the ED: ED Medications Discontinued Medications Generic Name Dose Route Start Last Admin Trade Name Freq PRN Reason Stop Dose Admin Fentanyl 100 mcg 08/01/17 01:42 08/01/17 01:48 Sublimaze Injection - IVPUSH 08/01/17 01:43 100 mcg ONCE ONE Administration Medical Decision Making - Medical Decision Making 08/01/17 02:39 Patient is a 67F with history of OK in 2001 s/p stents x7, emphysema, PAD, HCV ( undetectable), lung cancer (40% of right lung), hypothyroidism, achalasia, total hip replacement, wrist fracture in right hand and metacarpal bones in left hand here today with deformity in right wrist. Vital signs stable and normal. No signs of syncope. Patient is likely fragile due to her medical history. Will evaluate with x-rays of wrist with cardiac workup. EKG shows normal sinus rhythm with rate of 68. No st elevations/depressions. No significant t wave inversions. Q waves in inferior leads, stable when compared to EKG from 08/01/17. QTc prolonged to 504. Normal AK/QRS intervals. 08/01/17 02:43 X-ray shows fracture of radius and ulna through hardware. Dr Black called, discussed patient. Will take to OR. Tetanus 2 years ago. 08/01/17 03:44 CBC, CMP reassuring, Troponin undetectable. Admitted to m/s via Maris[facility] Sierra *DC/Admit/Observation/Transfer Diagnosis at time of Disposition: Wrist fracture - Discharge Dispostion Condition at time of disposition: Stable Decision to Admit order: Yes - Referrals - Patient Instructions - Post Discharge Activity
[2017-08-01 02:51] LABS: BASO % 0.8 % (0-2.0); EOS % 4.1 % (0-4.5); HEMATOCRIT 30.1 % (32.4-45.2); HEMOGLOBIN 9.7 GM/dL (10.7-15.3); MCH 26.5 pg (25.7-33.7); MCHC 32.4 g/dl (32.0-36.0); MEAN CELL VOLUME 81.8 fl (80-96); MEAN PLT VOLUME 8.4 fl (7.5-11.1); MONO % 8.3 % (3.8-10.2); NEUT % 61.8 % (42.8-82.8); PLATELET COUNT 244 K/MM3 (134-434); RBC 3.68 M/mm3 (3.60-5.2); RDW 18.1 % (11.6-15.6); WHITE BLOOD COUNT 6.2 K/mm3 (4.0-10.0)
[2017-08-01 03:01] LABS: INR 0.97 (0.82-1.09)
[2017-08-01 03:12] LABS: ALBUMIN 3.2 g/dl (3.4-5.0); ANION GAP 5 (8-16); BILIRUBIN,TOTAL 0.2 mg/dL (0.2-1.0); BLOOD UREA NITROGEN 17 mg/dL (7-18); CALCIUM 8.2 mg/dL (8.5-10.1); CHLORIDE 111 mmol/L (98-107); CO2 29 mmol/L (21-32); CREATININE 0.8 mg/dL (0.55-1.02); GLUCOSE,RANDOM 92 mg/dL (74-106); POTASSIUM 3.5 mmol/L (3.5-5.1); SGOT/AST 10 U/L (15-37); SGPT/ALT 12 U/L (12-78); SODIUM 145 mmol/L (136-145); TOT PROT 6.6 g/dl (6.4-8.2)
[2017-08-01 03:15] LABS: ALK PHOS 84 U/L (45-117)
[2017-08-01] MEDS ORDERED: fentaNYL CITRATE 250 MCG/5 ML VIAL ONE (03:49)
[2017-08-01] MEDS ORDERED: morphine SULFATE 4 MG/ML VIAL IVPUSH ONE (05:31)
[2017-08-01] MEDS ORDERED: morphine SULFATE 4 MG/ML VIAL ONE ×2 (05:32→06:43)
--- NOTE | 2017-08-01 05:36 | HP ---
CHIEF COMPLAINT: R wrist pain PCP: Rajesh HISTORY OF PRESENT ILLNESS: This is a 67 year old female with a significant past medical history of R wrist fracture s/p ORIF 03/2017 who presented to the ED after a fall with R wrist deformity and pain. Pt reports that she was standing at the counter and lost her balance when she was turning, sustaining the fall. ER course was notable for: (1) R radius and ulna fx on xray Recent Travel: pt denies PAST MEDICAL HISTORY: [place] 2001, PAD, COPD, lung CA s/p partial lobectomy,hypothyroid, HCV (cured as per pt), achalasia, anxiety, methadone maintenance x 30+ years PAST SURGICAL HISTORY: Stent x 7, multiple epsiodes from [id number] RUL partial (03/27) lobectomy 2009 R THR 2013 R wrist ORIF 03/2017 Social History: Smoking: quit 2009, 20 pack year history Alcohol: pt denies Drugs: pt denies current use, previous heroin and benzos Family History: mother age 76, COPD father age 63, atherosclerosis, [place] brother age 72, comps of 3vCABG sister age 23, cocaine OD Allergies No Known Allergies Allergy (Verified 04/23/17 10:50) HOME MEDICATIONS: 3 Medication Instructions Recorded Aspirin [ASA -] 81 mg PO DAILY #0 tab.chew 04/22/12 Albuterol Sulfate Inhaler - 2 inh PO Q6H PRN 08/20/15 [Ventolin HFA Inhaler -] Budesonide/Formeterol Fumarate 1 inh PO BID 08/20/15 [SYMBICORT 80/4.5mcg -] Cholecalciferol (Vitamin D3) 50,000 unit PO WEEKLY 08/20/15 [Vitamin D3] Diltiazem Cd [Cardizem Cd -] 1 cap PO DAILY 04/22/17 Levothyroxine [Synthroid -] 125 mcg PO DAILY 04/22/17 Methadone [Dolophine -] 130 mg PO DAILY 04/22/17 Omeprazole 40 mg PO DAILY 04/22/17 Pravastatin Sodium [Pravachol -] 20 mg PO HS 04/22/17 Valacyclovir HCl [Valtrex -] 500 mg PO DAILY 04/22/17 Venlafaxine HCl ER [Effexor Xr -] 75 mg PO DAILY 04/22/17 Furosemide [Lasix -] 40 mg PO DAILY 05/08/17 Multivitamin [Multiple Vitamins] 1 each PO DAILY 05/08/17 Sennosides [Senna] 2 tab PO DAILY 05/08/17 Docusate Sodium [Colace -] 100 mg PO TID #90 capsule 06/24/17 Zolpidem Tartrate [Ambien] 5 mg PO HS 07/03/17 traZODone HCL [Desyrel -] 100 mg PO HS 07/03/17 Bupropion HCl [Wellbutrin Xl -] 150 mg PO BID 08/01/17 Lactulose (Oral Use) [Cephulac -] 20 gm PO ASDIR 08/01/17 Magnesium Oxide [Magnesium] 400 mg PO DAILY 08/01/17 Naloxegol Oxalate [Movantik] 25 mg PO ASDIR 08/01/17 Potassium Chloride [K-Tab ER] 20 meq PO DAILY 08/01/17 Prochlorperazine Maleate 10 mg PO AC PRN 08/01/17 [Compazine] REVIEW OF SYSTEMS CONSTITUTIONAL: Absent: fever, chills, diaphoresis, generalized weakness, malaise, loss of appetite, weight change HEENT: Absent: rhinorrhea, nasal congestion, throat pain, throat swelling, difficulty swallowing, mouth swelling, ear pain, eye pain, visual changes CARDIOVASCULAR: Absent: chest pain, syncope, palpitations, irregular heart rate, lightheadedness , peripheral edema RESPIRATORY: Absent: cough, shortness of breath, dyspnea with exertion, orthopnea, wheezing, stridor, hemoptysis GASTROINTESTINAL: Absent: abdominal pain, abdominal distension, nausea, vomiting, diarrhea, constipation, melena, hematochezia GENITOURINARY: Absent: dysuria, frequency, urgency, hesitancy, hematuria, flank pain, genital pain MUSCULOSKELETAL: Present: R wrist pain Absent: myalgia, arthralgia, joint swelling, back pain, neck pain SKIN: Absent: rash, itching, pallor HEMATOLOGIC/IMMUNOLOGIC: Absent: easy bleeding, easy bruising, lymphadenopathy, frequent infections ENDOCRINE: Absent: unexplained weight gain, unexplained weight loss, heat intolerance, cold intolerance NEUROLOGIC: Absent: headache, focal weakness or paresthesias, dizziness, unsteady gait, seizure, mental status changes, bladder or bowel incontinence PSYCHIATRIC: Absent: anxiety, depression, suicidal or homicidal ideation, hallucinations. PHYSICAL EXAMINATION Vital Signs - 24 hr 3 05/11/18 01:46 Temperature 97.9 F Pulse Rate 75 Respiratory 16 Rate Blood Pressure 186/72 O2 Sat by Pulse 96 Oximetry (%) GENERAL: Awake, alert, and fully oriented, in no acute distress. HEAD: Normal with no signs of trauma. EYES: Pupils equal, round and reactive to light, extraocular movements intact, sclera anicteric, conjunctiva clear. No lid lag. EARS, NOSE, THROAT: Ears normal, nares patent, oropharynx clear without exudates. Moist mucous membranes. NECK: Normal range of motion, supple without lymphadenopathy, JVD, or masses. LUNGS: Breath sounds equal, clear to auscultation bilaterally. No wheezes, and no crackles. No accessory muscle use. HEART: Regular rate and rhythm, normal S1 and S2 without murmur, rub or gallop. ABDOMEN: Soft, nontender, not distended, normoactive bowel sounds, no guarding, no rebound, no masses. No hepatomegaly or splenomegaly. MUSCULOSKELETAL: Normal range of motion at all joints. No bony deformities or tenderness. No CVA tenderness. UPPER EXTREMITIES: 2+ pulses, warm, well-perfused. No cyanosis. No clubbing. No peripheral edema. right lower arm immobilized in splint + peripheral pulse LOWER EXTREMITIES: 2+ pulses, warm, well-perfused. No calf tenderness. No peripheral edema. NEUROLOGICAL: Cranial nerves II-XII intact. Normal speech. PSYCHIATRIC: Cooperative. Good eye contact. Appropriate mood and affect. SKIN: Warm, dry, normal turgor, no rashes or lesions noted, normal capillary refill. Laboratory Results - last 24 hr 3 08/01/17 08/01/17 08/01/17 01:41 01:41 01:41 WBC 6.2 RBC 3.68 Hgb 9.7 L Hct 30.1 L MCV 81.8 MCH 26.5 MCHC 32.4 RDW 18.1 H Plt Count 244 MPV 8.4 Neutrophils % 61.8 D Lymphocytes % 25.0 D Monocytes % 8.3 Eosinophils % 4.1 D Basophils % 0.8 PT with INR 11.00 INR 0.97 Sodium 145 Potassium 3.5 Chloride 111 H Carbon Dioxide 29 Anion Gap 5 L BUN 17 Creatinine 0.8 Creat Clearance w eGFR > 60 Random Glucose 92 Calcium 8.2 L Total Bilirubin 0.2 D AST 10 L ALT 12 Alkaline Phosphatase 84 Creatine Kinase 77 Troponin I < 0.02 Total Protein 6.6 Albumin 3.2 L Blood Type A POSITIVE Antibody Screen Negative ECG normal sinus rhythm vent rate 68, QTC 504 minimal voltage criteria for LVH Prolonged QT Radiology Reports R wrist / hand xray fracture of radius and ulna with angulation and displacement. radial fracture just proximal to last hardware screw of previous ORIF ASSESSMENT/PLAN: 67yF with PMH [place] 2001, PAD, COPD, lung CA s/p partial lobectomy, hypothyroid, HCV (cured as per pt), achalasia, anxiety, methadone maintenance x 30+ years presented to the ED s/p fall with wrist pain. R radius and ulna fracture - keep in splint - morphine for pain - ortho consult- ED d/w Dr. yanez covering dr. Fan; will take pt to or later today Prolonged QT - Stopped trazodone, compazine - advised stopping methadone, pt declines, will discuss with her PCP methadone dependence - cont methadone for now, pt declines dose reduction, aware of risks of QTC including lethal arrhythmia and opioid induced constipation - cont home bowel regimen CAD - cont home cardizem, home pravachol changed to formulary lipitor, cont ASA, furosemide hypothyroid - cont synthroid anxiety - cont wellbutrin and effexor, consider reducing doses due to QTC DVT PPX - deferred, pt likely to go home after surgery or tomorrow FEN - no IVF for now, start if prolonged NPO - BMP tomorrow if still here - NPO for or today Dispo: Pt currently requires further observation for management of her emergent condition. Visit type - Emergency Visit Emergency Visit: Yes ED Registration Date: 08/01/17 Care time: The patient presented to the Emergency Department on the above date and was hospitalized for further evaluation of their emergent condition. - New Patient This patient is new to me today: Yes Date on this admission: 08/01/17 - Critical Care Critical Care patient: No Hospitalist Screening - Colonoscopy Questionnaire Colonoscopy Questionnaire: Colonoscopy Questionnaire - Patient: 50 - 75 years old and never had a screening colonoscopy: Unknown History of colon or rectal polyps, or CA: No History of IBD, Crohn's disease or UC: No History of abdominal radiation therapy as a child: No - Relative: 1 with colon or rectal CA, or polyps at age 60 or younger: No Colon or rectal CA diagnosed at age 45 or younger: No Multiple relatives with colon or rectal CA: No - Outcome: Screening Result: Negative Screen
[2017-08-01] MEDS ORDERED: ALBUTEROL SO4 18 GM HFA INHALER IH PRN ×2 (05:40→15:57)
[2017-08-01] MEDS ORDERED: TRIMETHOBENZAMIDE HCL 300 MG CAPSULE PO PRN ×2 (05:52→15:57)
[2017-08-01] MEDS: DOCUSATE SODIUM 100 MG CAPSULE (FP) PO SCH ×3 (06:10→21:04)
[2017-08-01] MEDS: morphine SULFATE 4 MG/ML VIAL IVPUSH PRN ×3 (06:46→23:24)
[2017-08-01] MEDS ORDERED: LEVOTHYROXINE NA 125 MCG TABLET (FP) PO SCH (07:00)
[2017-08-01 07:17] LABS: URINE APPEARANCE CLEAR; URINE BILIRUBIN NEGATIVE (<2.0 mg/dL); URINE BLOOD NEGATIVE (NEGATIVE); URINE COLOR LTYELLOW; URINE GLUCOSE (UA) NEGATIVE (NEGATIVE); URINE KETONE NEGATIVE (NEGATIVE); URINE LEUK ESTERASE TRACE (NEGATIVE); URINE NITRITE NEGATIVE (NEGATIVE); URINE PROTEIN NEGATIVE (NEGATIVE); URINE UROBILINOGEN NEGATIVE mg/dL (0.2-1.0)
[2017-08-01 07:31] LABS: EPI CELLS RARE /HPF (FEW)
--- NOTE | 2017-08-01 08:44 | CONSULT ---
Consult - text type - Consultation Consultation Note: FULL CONSULT DICTATED IMP: OPEN RIGHT DISTAL RADIUS AND ULNA FX BELOW PREVIOUS ORIF PLAN: --> OR TODAY FOR I&D AND ORIF, IV ABX
[2017-08-01 09:28] VITALS: BMI 27.8
--- NOTE | 2017-08-01 09:32 | EKG ---
Test Reason : Blood Pressure : / mmHG Vent. Rate : 068 BPM Atrial Rate : 068 BPM P-R Int : 150 ms QRS Dur : 096 ms QT Int : 474 ms P-R-T Axes : 056 051 053 degrees QTc Int : 504 ms NORMAL SINUS RHYTHM MINIMAL VOLTAGE CRITERIA FOR LVH, MAY BE NORMAL VARIANT PROLONGED QT CANNOT RULE OUT INFERIOR INFARCT , AGE UNDETERMINED Confirmed by ZAYDA MUJICA MD ([id number]) on 08/01/2017 9:32:14 AM Referred By: Confirmed By:ZAYDA MUJICA MD
--- NOTE | 2017-08-01 09:51 | CONS ---
DATE OF CONSULTATION: 08/01/2017 ORTHOPEDIC CONSULTATION/[facility] Patient is a 67-year-old female, well known to our service. She is status post open reduction, internal fixation of her right distal radius fracture in March. This responded well to treatment and healed the fracture. She is status post fall again last night sustaining a new fracture to her right wrist necessitating emergency room visit. She is now admitted to the hospital. PHYSICAL EXAMINATION: She is splinted. Opening the splint, we see a small lack on the volar side of the wrist and no purulence, no dirt or any other foreign debris in the wound. No obvious deformity. Intact ulnar, medial, radial, sensation in motor. Brisk capillary refill. X-RAYS: Revealed a healed distal radius fracture with a hand denervation of volar plate that now has a fracture at the proximal end of the plate, a transverse fracture of the radial shaft, and a comminuted distal ulnar fracture. IMPRESSION: Open right distal radius and ulnar fracture below a previous open reduction internal fixation plate. PLAN: Risks, benefits, and alternatives were discussed with the patient in great detail. Patient booked for I and D and ORIF. Today, the plate will be removed and a longer plate will be applied. She has gotten a tetanus shot in the emergency room, is on IV antibiotics. encouraged the OR to open up free time as soon as possible to perform this procedure. URBANO RODRIGUEZ M.D. [id number]
[2017-08-01] MEDS ORDERED: PANTOPRAZOLE 40 MG TABLET (FP) PO SCH (10:00)
[2017-08-01] MEDS ORDERED: valACYclovir HCL 500 MG TABLET (FP) PO SCH (10:00)
[2017-08-01] MEDS ORDERED: VENLAFAXINE HCL 75 MG E.R. CAPSULES (FP) PO SCH (10:00)
[2017-08-01] MEDS ORDERED: POTASSIUM CHLORIDE TABS 20 MEQ TABLET.ER (FP) PO SCH (10:00)
[2017-08-01] MEDS ORDERED: METHADONE PO SCH (10:00)
[2017-08-01] MEDS ORDERED: MAGNESIUM OXIDE 400 MG TABLET (FP) PO SCH (10:00)
[2017-08-01] MEDS ORDERED: BUDESONIDE/FORMETEROL FUMARATE 80/4.5 mcg INHALER IH SCH (10:00)
[2017-08-01] MEDS ORDERED: MULTIVITAMINS (DAILY MVI) TABLET (FP) PO SCH (10:00)
[2017-08-01] MEDS ORDERED: FUROSEMIDE 40 MG TABLET (FP) PO SCH (10:00)
[2017-08-01] MEDS ORDERED: ROPIVACAINE HCL 0.5% 30ML VIAL ONE (11:37)
[2017-08-01] MEDS ORDERED: MIDAZOLAM HCL 2 MG/2 ML SINGLE DOSE VIAL ONE ×3 (11:39→11:51)
[2017-08-01] MEDS ORDERED: ONDANSETRON 4 MG/2 ML VIAL IVPUSH PRN ×2 (11:43→15:57)
[2017-08-01] MEDS ORDERED: LACTATED RINGERS SOLUTION 1,000 ML IV SCH ×2 (11:45→15:00)
[2017-08-01] MEDS ORDERED: ALBUTEROL SO4 18 GM HFA INHALER IH ONE (11:51)
[2017-08-01] MEDS ORDERED: PROPOFOL 20 ML ONE (11:52)
[2017-08-01] MEDS ORDERED: KETAMINE HCL 200 MG/20 ML VIAL ONE (11:52)
[2017-08-01] MEDS ORDERED: DEXAMETHASONE SOD PHOSPHATE 4 MG/1 ML VIAL ONE (11:55)
[2017-08-01] MEDS ORDERED: ceFAZolin SODIUM 1 GM VIAL IVPB ONE (13:07)
--- NOTE | 2017-08-01 14:57 | OP ---
Operative Note - Note: Operative Date: 08/01/17 Pre-Operative Diagnosis: open distal radiius/ulna shaft fx below previous ORIF Operation: orif right radial shaft and removal of plate and screws from previous orif and I&D of open wound Post-Operative Diagnosis: Same as Pre-op Surgeon: Yony Black Can Crimper: Yann Fan Anesthesia: General Estimated Blood Loss (mls): 0 Operative Report Dictated: Yes
--- NOTE | 2017-08-01 15:39 | OP ---
DATE OF OPERATION: 08/01/2017 PREOPERATIVE DIAGNOSIS: Open distal radial shaft and ulna fracture below a previous open reduction internal fixation of the distal radius. POSTOPERATIVE DIAGNOSIS: Open distal radial shaft and ulna fracture below a previous open reduction internal fixation of the distal radius. PROCEDURE: Open reduction internal fixation of the radius with removal of previous hardware, irrigation and debridement. SURGEON ATTENDING: Yony Black M.D. OPERATIONS PLANNER: Yann Fan M.D. ANESTHESIA: Regional and general. CLOSURE: A [employer] extended distal plate with appropriate screws, 2-0 Vicryl for pronator, 4-0 for subcutaneous, and 4-0 Monocryl for skin with Steri-Strips. ESTIMATED BLOOD LOSS: Negligible. TOURNIQUET TIME: Approximately an hour. COMPLICATIONS: None. CONDITION: To recovery room in stable condition. DESCRIPTION OF PROCEDURE: Patient was taken to the operating room in August 01, 2017. Regional and general anesthesia was administered by the anesthesiologist. IV Kefzol was given prophylactically prior to the case. Upper right extremity was prepped and draped in the usual sterile fashion with a well-padded pneumatic tourniquet was placed on the right proximal arm. First the small, 1-cm open wound over the distal ulna was irrigated. Skin and soft tissue were debrided. It was probed, and found to be clean with no gross contamination. Multiple liters of antibiotic irrigation were irrigated through it, and it was closed with 3-0 nylon horizontal mattress suture. Next our attention was directed to the distal radius. Utilizing the previous incision, we opened the distal radius on the volar side and extended the incision more proximally. Blunt dissection was carried down through the SCR floor, opening thus exposing the pronator. Pronator was moved over, exposing the fracture and retractors were placed in the . Soft tissue around the fracture was debrided. The previous screws were removed and so was the plate. An anatomical reduction was then obtained of the radial shaft fracture and extended plate was then applied and clamped into place. Multiple proximal and distal screws were drilled. Identification of the screw of the appropriate size of screw, DCP function of the plate was used to compress the fracture site as well. Anatomical reduction was confirmed in the AP and lateral planes, placed in the image intensifier with excellent placement of the hardware. The wound was irrigated out with copious amounts of irrigation. The pronator was tacked back using 2-0 Vicryl. The subcutaneous was closed in 4-0 nylon and 4-0 Monocryl, subcuticular was used for the skin with Steri-Strips. A sterile pressure dressing with the volar was applied. Tourniquet was deflated. Total tourniquet time was approximately an hour. No complications. Tunde [id number]
[2017-08-01] MEDS: LACTATED RINGERS SOLUTION 1,000 ML IV SCH (16:30)
[2017-08-01] MEDS ORDERED: CEFAZOLIN 1 GM in DEXTROSE 5%-WATER - 50 ML IVPB SCH ×2 (18:00→21:00)
[2017-08-01] MEDS ORDERED: PT OWN MED DRAWER 7, Y5N ONE (20:57)
[2017-08-01] MEDS ORDERED: DEXTROSE 5%-WATER - 50 ML IVPB ONE (20:59)
[2017-08-01] MEDS ORDERED: CEFAZOLIN 1 GM/D5W 1 GM/50 ML BAG IVPB SCH (21:00)
[2017-08-01] MEDS: CEFAZOLIN 1 GM in DEXTROSE 5%-WATER - 50 ML IVPB SCH (21:04)
[2017-08-01] MEDS: SENNOSIDES 8.6MG TABLET (FP) PO SCH (21:05)
[2017-08-01] MEDS: ATORVASTATIN CA 10 MG TABLET (FP) PO SCH (21:05)
[2017-08-01] MEDS: BUDESONIDE/FORMETEROL FUMARATE 80/4.5 mcg INHALER IH SCH (21:22)
[2017-08-01] MEDS ORDERED: SENNOSIDES 8.6MG TABLET (FP) PO SCH (22:00)
[2017-08-01] MEDS ORDERED: ATORVASTATIN CA 10 MG TABLET (FP) PO SCH (22:00)
[2017-08-02] MEDS: morphine SULFATE 4 MG/ML VIAL IVPUSH PRN ×5 (03:35→19:52)
[2017-08-02] MEDS ORDERED: METHADONE HCL 10 MG TABLET ONE (05:22)
[2017-08-02] MEDS ORDERED: ceFAZolin SODIUM 1 GM VIAL ONE ×3 (05:23→16:19)
[2017-08-02] MEDS ORDERED: DEXTROSE 5%-WATER - 50 ML IVPB ONE ×3 (05:23→16:19)
[2017-08-02] MEDS ORDERED: METHADONE HCL 40 MG DISPERSABLE TABLET ONE (05:23)
[2017-08-02] MEDS: CEFAZOLIN 1 GM in DEXTROSE 5%-WATER - 50 ML IVPB SCH ×3 (05:36→17:16)
[2017-08-02] MEDS: METHADONE 120 MG, METHADONE 10 MG PO SCH (05:36)
[2017-08-02] MEDS: DOCUSATE SODIUM 100 MG CAPSULE (FP) PO SCH ×3 (05:38→22:40)
[2017-08-02] MEDS: LACTATED RINGERS SOLUTION 1,000 ML IV SCH (05:42)
[2017-08-02] MEDS ORDERED: METHADONE 120 MG, METHADONE 10 MG PO SCH (06:00)
[2017-08-02] MEDS: LEVOTHYROXINE NA 125 MCG TABLET (FP) PO SCH (06:13)
[2017-08-02] MEDS: valACYclovir HCL 500 MG TABLET (FP) PO SCH (10:04)
[2017-08-02] MEDS: MULTIVITAMINS (DAILY MVI) TABLET (FP) PO SCH (10:05)
[2017-08-02] MEDS: PANTOPRAZOLE 40 MG TABLET (FP) PO SCH (10:05)
[2017-08-02] MEDS: VENLAFAXINE HCL 75 MG E.R. CAPSULES (FP) PO SCH (10:05)
[2017-08-02] MEDS: FUROSEMIDE 40 MG TABLET (FP) PO SCH (10:05)
[2017-08-02] MEDS: POTASSIUM CHLORIDE TABS 20 MEQ TABLET.ER (FP) PO SCH (10:05)
[2017-08-02] MEDS: MAGNESIUM OXIDE 400 MG TABLET (FP) PO SCH (10:05)
[2017-08-02] MEDS: BUDESONIDE/FORMETEROL FUMARATE 80/4.5 mcg INHALER IH SCH ×2 (10:06→21:06)
--- NOTE | 2017-08-02 12:02 | PN ---
Progress Note (short form) - Note Progress Note: pt seen/ examined chart reviewed s/p orif - right wrist-- pod # 1 c/c pain afebrile Vital Signs Temp 98.5 F 08/02/17 10:00 Pulse 86 08/02/17 10:00 Resp 20 08/02/17 10:00 BP 160/80 08/02/17 10:00 Pulse Ox 96 08/01/17 17:08 Intake & Output 08/01/17 08/01/17 08/02/17 11:59 23:59 11:59 Intake Total 1050 1175 Output Total 50 1500 Balance 1000 -325 Weight 167 lb 6.4 oz Intake: IV 1050 800 Lactated Ringers Solution 800 1,000 ml @ 75 mls/hr IV ASDIR [facility] Rx#:[id number] IVPB 100 Oral 275 Output: Urine 50 1500 Hudson 1500 Other: Voiding Method Bedside Commode Bedpan Indwelling Catheter Height 5 ft 5 in Body Mass Index (BMI) 27.8 Weight Measurement Method Built in [facility] Active Medications Albuterol Sulfate (Ventolin Hfa Inhaler -) 2 puff IH Q6H PRN PRN Reason: SHORT OF BREATH/WHEEZING Atorvastatin Calcium (Lipitor -) 10 mg PO HS [facility] Last Admin: 08/01/17 21:05 Dose: 10 mg Budesonide/Formoterol Fumarate (Symbicort 80/4.5mcg -) 1 puff IH BID [facility] Last Admin: 08/02/17 10:06 Dose: 1 puff Bupropion HCl (Wellbutrin Xl -) 150 mg PO BID [facility] Last Admin: 08/02/17 10:05 Dose: 150 mg Diltiazem HCl (Cardizem Cd -) 120 mg PO DAILY [facility] Last Admin: 08/02/17 10:04 Dose: 120 mg Docusate Sodium (Colace -) 100 mg PO TID [facility] Last Admin: 08/02/17 05:38 Dose: 100 mg Ergocalciferol (Drisdol -) 50,000 unit PO Harrison@1000 [place] Furosemide (Lasix -) 40 mg PO DAILY [facility] Last Admin: 08/02/17 10:05 Dose: 40 mg Lactated Ringer's (Lactated Ringers Solution) 1,000 mls @ 75 mls/hr IV ASDIR [facility] Last Admin: 08/02/17 05:42 Dose: 75 mls/hr Lactulose (Cephulac (Oral Use)) 80 gm PO Harrison@1000 [facility] Levothyroxine Sodium (Synthroid -) 125 mcg PO DAILY@0700 [facility] Last Admin: 08/02/17 06:13 Dose: 125 mcg Magnesium Oxide (Mag-Ox -) 400 mg PO DAILY [facility] Last Admin: 08/02/17 10:05 Dose: 400 mg Methadone HCl 120 mg/ (Methadone HCl 10 mg) 130 mg PO DAILY@0600 [facility] Last Admin: 08/02/17 05:36 Dose: 130 mg Morphine Sulfate (Morphine Sulfate) 4 mg IVPUSH Q4H PRN PRN Reason: PAIN LEVEL 6-10 Last Admin: 08/02/17 11:46 Dose: 4 mg Multivitamins/Minerals/Vitamin C (Tab-A-Vit -) 1 tab PO DAILY [facility] Last Admin: 08/02/17 10:05 Dose: 1 tab Non-Formulary Medication (Naloxegol Oxalate [Movantik]) 25 mg PO Harrison@1000 [facility] Ondansetron HCl (Zofran Injection) 4 mg IVPUSH Q6H PRN PRN Reason: NAUSEA AND/OR VOMITING Pantoprazole Sodium (Protonix -) 40 mg PO DAILY [facility] Last Admin: 08/02/17 10:05 Dose: 40 mg Potassium Chloride (K-Dur -) 20 meq PO DAILY [facility] Last Admin: 08/02/17 10:05 Dose: 20 meq Senna (Senna -) 2 tab PO HS [facility] Last Admin: 08/01/17 21:05 Dose: 2 tab Trimethobenzamide HCl (Tigan -) 300 mg PO TID PRN PRN Reason: NAUSEA AND/OR VOMITING Valacyclovir HCl (Valtrex -) 500 mg PO DAILY [facility] Last Admin: 08/02/17 10:04 Dose: 500 mg Venlafaxine HCl (Effexor Xr -) 75 mg PO DAILY [facility] Last Admin: 08/02/17 10:05 Dose: 75 mg CBC, BMP 08/01/17 01:41 08/01/17 01:41 Microbiology 08/01/17 09:00 Urine Culture - Final Urine - Urine Clean Catch NO GROWTH OBTAINED Physical Comfortable sitting in chair lungs- clear cvs- s1, s2 rrr abd -- soft ext- luke - forearm -dressing + A/p Pod # 1 pain control open fracture orif will discuss with Dr. Wayne Zhou will follow Problem List - Problems (1) Anxiety Code(s): F41.9 - ANXIETY DISORDER, UNSPECIFIED (2) HTN (hypertension) Code(s): I10 - ESSENTIAL (PRIMARY) HYPERTENSION Qualifiers: Hypertension type: essential hypertension Qualified Code(s): I10 - Essential (primary) hypertension
--- NOTE | 2017-08-02 14:29 | PN ---
Progress Note (short form) - Note Progress Note: Anesthesia post op note POD#1, S/P ORIF Right Distal ulna and radial fracture, under GA and supra clavicular brachial plexus block. Pat seen and examined. VSS, sitting in the chair. NAD. pain score 0-2/10, " feels like pressure". Able to move her fingers, no pain. C/o pain when trying to ambulate. Patient reports increased pain last night as the nerve block wore of. VSS. Pat is on chronic methadone. Suggesting to continue with her meds, possible addition of tylenol as the most acute postop pain is subsidizing. No apparent post anesthesia complications. signed off.
[2017-08-02] MEDS: ACETAMINOPHEN 325 MG TABLET (FP) PO PRN ×3 (14:38→22:40)
[2017-08-02] MEDS: oxyCODONE HCL 5 MG TABLET PO PRN ×3 (14:39→22:39)
[2017-08-02] MEDS ORDERED: PT OWN MED DRAWER 7, Y5N ONE (20:26)
[2017-08-02] MEDS: ATORVASTATIN CA 10 MG TABLET (FP) PO SCH (21:07)
[2017-08-02] MEDS: SENNOSIDES 8.6MG TABLET (FP) PO SCH (21:07)
--- NOTE | 2017-08-02 21:37 | PN ---
Progress Note (short form) - Note Progress Note: AVSS COMFORTABLE INTACT U/M/R SENSATION AND MOTOR BRISK CAP REFILL GOOD MOTION FINGERS IMP: DOING WELL PLAN; DC TO HOME ON PO ABX IF OKAY MEDICALLY
[2017-08-03] MEDS: morphine SULFATE 4 MG/ML VIAL IVPUSH PRN ×4 (00:40→16:54)
[2017-08-03] MEDS ORDERED: ceFAZolin SODIUM 1 GM VIAL ONE ×3 (01:35→17:16)
[2017-08-03] MEDS ORDERED: DEXTROSE 5%-WATER - 50 ML IVPB ONE (01:35)
[2017-08-03] MEDS: CEFAZOLIN 1 GM in DEXTROSE 5%-WATER - 50 ML IVPB SCH ×2 (01:41→10:16)
[2017-08-03] MEDS ORDERED: METHADONE HCL 40 MG DISPERSABLE TABLET ONE (05:40)
[2017-08-03] MEDS ORDERED: METHADONE HCL 10 MG TABLET ONE (05:40)
[2017-08-03] MEDS: METHADONE 120 MG, METHADONE 10 MG PO SCH (05:43)
[2017-08-03] MEDS: DOCUSATE SODIUM 100 MG CAPSULE (FP) PO SCH ×2 (05:45→14:00)
[2017-08-03] MEDS: LEVOTHYROXINE NA 125 MCG TABLET (FP) PO SCH (06:24)
[2017-08-03] MEDS ORDERED: LACTULOSE 20 GM/30 ML UDC (FOR ORAL USE ONLY) PO SCH ×2 (10:00)
[2017-08-03] MEDS ORDERED: ERGOCALCIFEROL (VITAMIN D2) 50,000 UNIT CAPSULE (FP) PO SCH ×2 (10:00)
[2017-08-03] MEDS ORDERED: PATIENT'S OWN MEDICATION (NON-FORMULARY) (Naloxegol Oxalate [Movantik] 25 MG) PO SCH ×2 (10:00)
[2017-08-03] MEDS ORDERED: PT OWN MED DRAWER 7, Y5N ONE (10:13)
[2017-08-03] MEDS: FUROSEMIDE 40 MG TABLET (FP) PO SCH (10:16)
[2017-08-03] MEDS: MULTIVITAMINS (DAILY MVI) TABLET (FP) PO SCH (10:16)
[2017-08-03] MEDS: BUDESONIDE/FORMETEROL FUMARATE 80/4.5 mcg INHALER IH SCH (10:16)
[2017-08-03] MEDS: PANTOPRAZOLE 40 MG TABLET (FP) PO SCH (10:16)
[2017-08-03] MEDS: MAGNESIUM OXIDE 400 MG TABLET (FP) PO SCH (10:16)
[2017-08-03] MEDS: POTASSIUM CHLORIDE TABS 20 MEQ TABLET.ER (FP) PO SCH (10:16)
[2017-08-03] MEDS: VENLAFAXINE HCL 75 MG E.R. CAPSULES (FP) PO SCH (10:18)
[2017-08-03] MEDS: valACYclovir HCL 500 MG TABLET (FP) PO SCH (10:18)
--- NOTE | 2017-08-03 12:09 | DS ---
Physical Examination Vital Signs: Vital Signs Temperature 98.6 F 08/03/17 06:00 Pulse Rate 82 08/03/17 06:00 Respiratory Rate 20 08/03/17 06:00 Blood Pressure 153/73 08/03/17 06:00 O2 Sat by Pulse Oximetry (%) 96 08/03/17 00:34 Findings/Remarks: sitting in chair feels better pain much better afebrile ortho f/u noted Constitutional: Yes: No Distress, Calm Neck: Yes: Supple Cardiovascular: Yes: Regular Rate and Rhythm Respiratory: Yes: CTA Bilaterally Gastrointestinal: Yes: Soft Edema: No Wound/Incision: Yes: Dressing Dry and Intact Neurological: Yes: Alert Labs: CBC, BMP 08/01/17 01:41 08/01/17 01:41 Discharge Summary Reason For Visit: FRACTURE OF WRIST Current Active Problems Wrist fracture (Acute) Hospital Course: stable s/p fall Pre-Operative Diagnosis: open distal radiius/ulna shaft fx below previous ORIF Operation: orif right radial shaft and removal of plate and screws from previous orif and I&D of open wound stable for d/c on po abx pt in agreement meds reconcilled Condition: Stable - Instructions Referrals: Jessica Mena MD [Primary Care Provider] - Disposition: HOME - Home Medications Comprehensive Discharge Medication List: Ambulatory Orders Aspirin [ASA -] 81 mg PO DAILY #0 tab.chew 04/22/12 Albuterol Sulfate Inhaler - [Ventolin HFA Inhaler -] 2 inh PO Q6H PRN 08/20/15 Budesonide/Formeterol Fumarate [SYMBICORT 80/4.5mcg -] 1 inh PO BID 08/20/15 Cholecalciferol (Vitamin D3) [Vitamin D3] 50,000 unit PO WEEKLY 08/20/15 Diltiazem Cd [Cardizem Cd -] 1 cap PO DAILY 04/22/17 Levothyroxine [Synthroid -] 125 mcg PO DAILY 04/22/17 Methadone [Dolophine -] 130 mg PO DAILY 04/22/17 Omeprazole 40 mg PO DAILY 04/22/17 Pravastatin Sodium [Pravachol -] 20 mg PO HS 04/22/17 Valacyclovir HCl [Valtrex -] 500 mg PO DAILY 04/22/17 Venlafaxine HCl ER [Effexor Xr -] 75 mg PO DAILY 04/22/17 Furosemide [Lasix -] 40 mg PO DAILY 05/08/17 Multivitamin [Multiple Vitamins] 1 each PO DAILY 05/08/17 Sennosides [Senna -] 2 tab PO DAILY 05/08/17 Docusate Sodium [Colace -] 100 mg PO TID #90 capsule 06/24/17 Zolpidem Tartrate [Ambien] 5 mg PO HS 07/03/17 traZODone HCL [Desyrel -] 100 mg PO HS 07/03/17 Bupropion HCl [Wellbutrin Xl -] 150 mg PO BID 08/01/17 Lactulose (Oral Use) [Cephulac -] 20 gm PO ASDIR 08/01/17 Magnesium Oxide [Magnesium] 400 mg PO DAILY 08/01/17 Naloxegol Oxalate [Movantik] 25 mg PO ASDIR 08/01/17 Potassium Chloride [K-Tab ER] 20 meq PO DAILY 08/01/17 Prochlorperazine Maleate [Compazine] 10 mg PO AC PRN 08/01/17 Acetaminophen [Tylenol .Regular Strength -] 325 mg PO Q4H PRN tablet 08/03/17 Cephalexin Monohydrate [Keflex -] 500 mg PO Q8H 5 Days #15 capsule 08/03/17 Trimethobenzamide HCl [Tigan -] 300 mg PO TID PRN capsule 08/03/17
[2017-08-03 14:45] VITALS: BP 144/68; PULSE 72; TEMP 98.2
[2017-08-03] MEDS ORDERED: INSULIN (NOVOLOG) ASPART 100 UNITS/ML 10ML VIAL ONE (17:15)
--- NOTE | 2017-08-07 12:19 | PATH ---
Surgical Pathology Report Patient Name: RIGO BRITT Med. Rec. #: [id number] /Age/Gender: 1950 (Age: 67) / F Account: [id number] Location: [address] [place] [address]/[facility] Taken: 08/01/2017 Received: 08/04/2017 Reported: 08/07/2017 Physicians: Yony Black M.D. Specimen(s) Received HARDWARE right wrist Clinical History Right wrist fracture Final Diagnosis HARDWARE, RIGHT WRIST: HARDWARE. GROSS EXAMINATION ONLY Electronically Signed Joceline Granados M.D. Gross Description Received fresh labeled "hardware right wrist," is a 6.0 x 2.5 x 0.2 cm mcghee metallic plate. Also received within the same container are 10 metallic screws ranging from 0.5-2.0 cm in length. No soft tissue is present. No sections are submitted, gross only. /08/05/2017 saudi/08/05/2017
== END 2017-08-03 17:00 | disposition home or self-care (01) ==
LOC: JER 01:36 → JERBED 03:46 → INTOOBSV 03:46 → UNDOADMOB 03:46 → UNDOADMIN 04:23 → JERBED 04:23 → J6S 07:50
PROVIDERS: ADMIT Internal Medicine; ATTEND Internal Medicine
PROC: 0PPH04Z Removal of Internal Fixation Device from Right Radius, Open Approach (ICD-10-PCS; 2017-08-01)
PROC: 0HDDXZZ Extraction of Right Lower Arm Skin, External Approach (ICD-10-PCS; 2017-08-01)
PROC: 3E03329 Introduction of Other Anti-infective into Peripheral Vein, Percutaneous Approach (ICD-10-PCS; 2017-08-01)
PROC: 3E0337Z Introduction of Electrolytic and Water Balance Substance into Peripheral Vein, Percutaneous Approach (ICD-10-PCS; 2017-08-01)
PROC: 0PSH04Z Reposition Right Radius with Internal Fixation Device, Open Approach (ICD-10-PCS; principal; 2017-08-01 13:00)
DX: S52.391B Other fracture of shaft of radius, right arm, initial encounter for open fracture type I or II (principal); S52.201B Unspecified fracture of shaft of right ulna, initial encounter for open fracture type I or II; W18.30XA Fall on same level, unspecified, initial encounter; Y93.9 Activity, unspecified; Y92.9 Unspecified place or not applicable; I25.2 Old myocardial infarction; Z95.5 Presence of coronary angioplasty implant and graft; J43.9 Emphysema, unspecified; I73.9 Peripheral vascular disease, unspecified; Z85.118 Personal history of other malignant neoplasm of bronchus and lung; E03.9 Hypothyroidism, unspecified; K22.0 Achalasia of cardia; Z87.891 Personal history of nicotine dependence; Z79.82 Long term (current) use of aspirin; Z90.2 Acquired absence of lung [part of]; I45.81 Long QT syndrome; I25.10 Atherosclerotic heart disease of native coronary artery without angina pectoris; F41.9 Anxiety disorder, unspecified; F11.20 Opioid dependence, uncomplicated; K59.03 Drug induced constipation; I10 Essential (primary) hypertension
CPT/HCPCS: 36415; 71045-TC-FY; 73110-TC-RT-FY; 73130-TC-RT-FY; 76000-TC-FY; 80053; 81003; 81015; 82550; 84484; 85025; 85610; 86850; 86900; 86901; 87086; 88300-TC; 93005; 93010; 94760; 99284-25; G0378

== ENCOUNTER 2017-09-30 16:09 | Inpatient (IN) | payer OTHER ==
[2017-09-30] MEDS ORDERED: IBUPROFEN 400 MG TABLET (FP) PO ONE ×2 (17:12→18:20)
[2017-09-30] MEDS ORDERED: morphine CARPU-JECT 2 MG/1 ML DISP.SYRIN IM ONE (17:37)
[2017-09-30] MEDS ORDERED: morphine CARPU-JECT 4 MG/1 ML DISP.SYRIN IVPUSH ONE (17:53)
--- NOTE | 2017-09-30 18:06 | PDOC ---
History of Present Illness - General Chief Complaint: Injury Stated Complaint: WRIST INJURY Time Seen by Provider: 09/30/17 16:58 - History of Present Illness Initial Comments: Neelam Olson is a 67yo woman with a PMH of osteoporosis c/b kyphosis, spinal stenosis c/p laminectomy, lunc [place] s/p lobectomy, CAD s/p 7x stents, COPD, HTN, PAD and recent right wrist fracture x2 (March and July 2016, repaired surgically both occurrences) who presents today after falling onto her right wrist. She reports that she was leaning down to unplug a cord today using her left hand and lost her balance, falling onto her right arm. She immediately experienced pain and noticed a gross deformity. Ms Olson called an ambulance for transport to the hospital immediately. She does note that she has had problems with her balance recently, but she has been seen by neurology for evaluation and has a follow-up scheduled soon. Otherwise, she denies any new symptoms, new medications, fevers/chills, or changes to her physical condition. She had recovered well from her last right forearm repair and had recently started going without her splint. Past History - Past Medical History Allergies/Adverse Reactions: Allergies Allergy/AdvReac Type Severity Reaction Status Date / Time No Known Allergies Allergy Verified 09/30/17 17:00 Home Medications: Ambulatory Orders Aspirin [ASA -] 81 mg PO DAILY #0 tab.chew 04/22/12 Albuterol Sulfate Inhaler - [Ventolin HFA Inhaler -] 2 inh PO Q6H PRN 08/20/15 Budesonide/Formeterol Fumarate [SYMBICORT 80/4.5mcg -] 1 inh PO BID 08/20/15 Cholecalciferol (Vitamin D3) [Vitamin D3] 50,000 unit PO WEEKLY 08/20/15 Diltiazem Cd [Cardizem Cd -] 1 cap PO DAILY 04/22/17 Levothyroxine [Synthroid -] 125 mcg PO DAILY 04/22/17 Methadone [Dolophine -] 130 mg PO DAILY 04/22/17 Omeprazole 40 mg PO DAILY 04/22/17 Pravastatin Sodium [Pravachol -] 20 mg PO HS 04/22/17 Valacyclovir HCl [Valtrex -] 500 mg PO DAILY 04/22/17 Venlafaxine HCl ER [Effexor Xr -] 75 mg PO DAILY 04/22/17 Furosemide [Lasix -] 40 mg PO DAILY PRN 05/08/17 Multivitamin [Multiple Vitamins] 1 each PO DAILY 05/08/17 Sennosides [Senna -] 2 tab PO DAILY 05/08/17 Docusate Sodium [Colace -] 100 mg PO TID #90 capsule 06/24/17 Bupropion HCl [Wellbutrin Xl -] 150 mg PO BID 08/01/17 Lactulose (Oral Use) [Cephulac -] 20 gm PO ASDIR 08/01/17 Magnesium Oxide [Magnesium] 400 mg PO DAILY 08/01/17 Naloxegol Oxalate [Movantik] 25 mg PO WEEKLY 08/01/17 Potassium Chloride [K-Tab ER] 20 meq PO DAILY 08/01/17 Prochlorperazine Maleate [Compazine] 10 mg PO AC PRN 08/01/17 Ibuprofen [Motrin -] 800 mg PO DAILY PRN 09/14/17 Losartan Potassium [Cozaar] 25 mg PO DAILY 09/14/17 Metolazone 2.5 mg PO PRN 09/14/17 Walker [Ultra-Light Rollator] 1 each MC DAILY #1 each 09/18/17 Amoxicillin/Potassium Clav [Augmentin 875-125 Tablet] 1 each PO BID #10 tablet 09/19/17 Solifenacin Succinate [Vesicare -] 10 mg PO DAILY tab 09/19/17 Anemia: No Asthma: No Cancer: Yes (lung 2009, removed 1/4 rul, no chemo) Cardiac Disorders: Yes (CArdiac stent 03/31/17, [place] ) CVA: No COPD: Yes CHF: No Dementia: No Diabetes: No 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) Disorders: No HTN: Yes Hypercholesterolemia: No Liver Disease: No Psychiatric Problems: Yes (ANXIETY.Methadone program x 30 years) Seizures: No Thyroid Disease: Yes (on meds) Lung CA: Yes (ca, and emphazema) - Surgical History Abdominal Surgery: No Appendectomy: No Cardiac Surgery: Yes (seven stents, angiogram 03/2017) Cholecystectomy: No Lung Surgery: Yes (partial right lobectomy for ca, no chemo or radiation) Neurologic Surgery: No Orthopedic Surgery: Yes (right hip replacement 2013) - Immunization History Immunization Up to Date: Yes - Suicide/Smoking/Psychosocial Hx Smoking Status: Yes Smoking History: Never smoked Have you smoked in the past 12 months: No Number of Cigarettes Smoked Daily: 1 If you are a former smoker, when did you quit?: 2009 Information on smoking cessation initiated: No 'Breaking Loose' booklet given: 12/06/12 Hx Alcohol Use: No Drug/Substance Use Hx: No Substance Use Type: None Hx Substance Use Treatment: Yes (methadone program , hx detox, rehab) Review of Systems - Review of Systems Comments:: General: No recent fatigue, no weight change, no loss of appetite HEENT: No vision changes, no hearing changes, no congestion, no sore throat, no difficulty swallowing Cards: h/o CAD. No recent chest pain, no palpitations Pulm: h/o COPD, recent admission for pneumonia. No recent cough, change to SOB GI: No n/v/d/c, no heartburn, no melena : No frequency, no urgency, no dysuria Heme: No unusual bruising or bleeding Vasc: No new claudication Musc: See HPI. No LE edema Endo: No excessive thirst, no temperature intolerance Neuro: +balance difficulty. No numbness, no tingling, no LOC Psych: No change in mood *Physical Exam - Vital Signs Last Vital Signs Temp Pulse Resp BP Pulse Ox 97 F L 76 16 165/76 100 09/30/17 16:09 09/30/17 16:09 09/30/17 16:09 09/30/17 16:09 09/30/17 16:09 - Physical Exam Comments: General: Uncomfortable. No acute distress HEENT: EOMI, MMM Cards: RRR, no murmur noted Pulm: Comfortable on room air Abd: Soft, nontender Skin: No rash, no lesions noted Ext: RUE with gross deformity of forearm, no broken skin, no ecchymosis. Finger movement intact, sensation to light touch intact, good capillary refill, palpable radial pulse. Extremely tender to palpation. LUE and BLE without trauma , no edema, palpable pulses. Neuro: A&Ox3, CN grossly intact, motor/sensory grossly intact and symmetric ED Treatment Course - LABORATORY CBC & Chemistry Diagram: 09/30/17 18:40 09/30/17 18:40 - RADIOLOGY Radiology Studies Ordered: Category Date Time Status ELBOW-RIGHT [RAD] Stat Radiology 09/30/17 17:36 Ordered FOREARM- RIGHT [RAD] Stat Radiology 09/30/17 17:36 Ordered WRIST W/HAND-RIGHT* [RAD] Stat Radiology 09/30/17 17:36 Ordered Medical Decision Making - Medical Decision Making Neelam Olson is a 67yo woman with mutiple chronic medical conditions and recent right radius fracture surgically repaired in March c/b repeat fracture of radius and ulna in July. She presents today with a gross right forearm deformity following a fall onto her right arm. Per patient report, she was recovering well from her last surgical repair prior to this incident and denies any fevers , chills, difficulty with arm movement, continued arm pain, diminished sensation , or right forearm skin changes. - Will obtain xrays of right wrist, forearm, and elbow to evaluate extent of fracture and hardware involvement - Ortho consult following imaging - Ibuprofen 800mg and morphine IV 4mg for pain control - Preop CBC, BMP, type and screen ordered as Ms Olson will likely require repeat surgical repair Will re-evaluate following xrays and pain meds. X-rays completed. Show comminuted, displaced fractures of the distal right radius and ulna as well as failure of previously placed hardware. - Ortho consulted, waiting for call - Plan to admit to medicine with ortho on consult Seen and discussed with Dr Cope. Signed out to Dr Cabral. *DC/Admit/Observation/Transfer Diagnosis at time of Disposition: Fracture, radius and ulna, shaft Qualifiers: Encounter type: sequela Fracture type: closed Laterality: right Qualified Code( s): S52.301S - Unspecified fracture of shaft of right radius, sequela - Referrals Referrals: Jessica Mena MD [Primary Care Provider] - - Patient Instructions - Post Discharge Activity
[2017-09-30] MEDS ORDERED: morphine SULFATE 4 MG/ML VIAL ONE (18:20)
--- NOTE | 2017-09-30 18:37 | PDOC ---
Attending Attestation - HPI HPI: 09/30/17 18:59 The patient is a 67 year old female, with a significant past medical history of [place] in 2002 s/p stents x7, emphysema, PAD, HCV (undetectable), lung cancer (40% of right lung), hypothyroidism, achalasia, total hip replacement, wrist fracture in right hand and metacarpal bones in left hand, previously with left Colle's fx s/p operative repair, who presents to the emergency department with with right arm pain, swelling and deformity s/p fall today. The patient states she was bending over to unplug an outlet when she fell forward on her right hand. The patient denies any head strike/ injury or loss of consciousness. The patient denies any numbness or loss of sensation. The patient denies chest pain, shortness of breath, headache and dizziness. Denies fever, chills, nausea, vomit, diarrhea and constipation. Denies dysuria, frequency, urgency and hematuria. Allergies: NKA - Physicial Exam PE: 09/30/17 18:59 General: Well appearing, awake and alert, NAD. CVS: 2+ pulses, no edema. MSK: no edema, CROOKS x4, ROM intact. No clubbing or cyanosis. normal bulk and tone. Neuro: alert, oriented appropriately. SILT, 5/5 distal and prox strength in all extrem. Skin: warm and well perfused, cap refill <2 sec, normal color <Lambert Culp - Last Filed: 09/30/17 18:59> - Resident Resident Name: Mary Parson - ED Attending Attestation I have performed the following: I have examined & evaluated the patient, The case was reviewed & discussed with the resident, I agree w/resident's findings & plan - Medical Decision Making 09/30/17 18:35 67F with history of [place] in 2002 s/p stents x7, emphysema, PAD, HCV (undetectable) , lung cancer (40% of right lung), hypothyroidism, achalasia, total hip replacement, wrist fracture in right hand and metacarpal bones in left hand, previously with left Colle's fx s/p operative repair now with right arm pain, swelling and deformity s/p fall today. no paresthesia or weakness. +severe pain. vital signs with mild tachy, normotensive. preop labs including TxS, CBC and CMP. XR right forearm with +displaced hardware plate for radius, comminuted displaced mid shaft radius and ulna fx. reassuringly NVI. pain controlled with morphine. not candidate for extremity nerve block - as she has COPD and poor respiratory reserve. with XR findings, ortho cs with Dr. Fan, attempting call back to discuss, admit for operative management. admit to medicine s/o GALILEA Alex with orthopedic followup and operative management of rt forearm fx. 09/30/17 20:10 <Amanda Cope - Last Filed: 09/30/17 20:11> Attestations - Attestations 09/30/17 19:00 Documentation prepared by Lambert Culp, acting as medical records library professor for Amanda Cope MD. <Lambert Culp - Last Filed: 09/30/17 18:59>
[2017-09-30 19:17] LABS: HEMATOCRIT 32.2 % (32.4-45.2); MCH 25.1 pg (25.7-33.7); MCHC 30.9 g/dl (32.0-36.0); MEAN CELL VOLUME 81.1 fl (80-96); MEAN PLT VOLUME 8.7 fl (7.5-11.1); PLATELET COUNT 352 K/MM3 (134-434); RBC 3.97 M/mm3 (3.60-5.2); RDW 19.5 % (11.6-15.6); WHITE BLOOD COUNT 8.8 K/mm3 (4.0-10.0)
[2017-09-30 19:28] LABS: ANION GAP 7 (8-16); BLOOD UREA NITROGEN 14 mg/dL (7-18); CALCIUM 8.4 mg/dL (8.5-10.1); CHLORIDE 111 mmol/L (98-107); CO2 26 mmol/L (21-32); CREATININE 0.8 mg/dL (0.55-1.02); GLUCOSE,RANDOM 78 mg/dL (74-106); POTASSIUM 3.7 mmol/L (3.5-5.1); SODIUM 144 mmol/L (136-145)
--- NOTE | 2017-09-30 19:51 | PDOC ---
*Physical Exam - Vital Signs Last Vital Signs Temp Pulse Resp BP Pulse Ox 97 F L 76 16 165/76 100 09/30/17 16:09 09/30/17 16:09 09/30/17 16:09 09/30/17 16:09 09/30/17 16:09 ED Treatment Course - LABORATORY CBC & Chemistry Diagram: 09/30/17 18:40 09/30/17 18:40 - ADDITIONAL ORDERS Additional order review: Laboratory Results 09/30/17 18:40 Sodium 144 Potassium 3.7 Chloride 111 H Carbon Dioxide 26 Anion Gap 7 L BUN 14 Creatinine 0.8 Creat Clearance w eGFR > 60 Random Glucose 78 Calcium 8.4 L 09/30/17 18:40 RBC 3.97 MCV 81.1 MCHC 30.9 L RDW 19.5 H MPV 8.7 - RADIOLOGY Radiology Studies Ordered: Category Date Time Status ELBOW-RIGHT [RAD] Stat Radiology 09/30/17 17:36 Taken FOREARM- RIGHT [RAD] Stat Radiology 09/30/17 17:36 Taken WRIST W/HAND-RIGHT* [RAD] Stat Radiology 09/30/17 17:36 Taken - Medications Given in the ED: ED Medications Discontinued Medications Generic Name Dose Route Start Last Admin Trade Name Freq PRN Reason Stop Dose Admin Ibuprofen 800 mg 09/30/17 17:12 09/30/17 19:06 Motrin - PO 09/30/17 17:13 800 mg ONCE ONE Administration Morphine Sulfate 4 mg 09/30/17 17:37 09/30/17 19:06 Morphine Injection - IM 09/30/17 17:38 Not Given ONCE ONE Morphine Sulfate 4 mg 09/30/17 17:53 09/30/17 19:06 Morphine Injection - IVPUSH 09/30/17 17:54 4 mg ONCE ONE Administration Progress Note - Progress Note Progress Note: Please see previous H&P. Signed prior to admit order being placed. Ortho consult still pending. Patient admitted to Dr Melanie Alex. *DC/Admit/Observation/Transfer Diagnosis at time of Disposition: Fracture, radius and ulna, shaft Qualifiers: Encounter type: sequela Fracture type: closed Laterality: right Qualified Code( s): S52.301S - Unspecified fracture of shaft of right radius, sequela - Discharge Dispostion Decision to Admit order: Yes - Referrals Referrals: Jessica Mena MD [Primary Care Provider] - - Patient Instructions - Post Discharge Activity
[2017-09-30] MEDS: DEXTROSE 5%-0.45% SALINE 1,000 ML IV SCH (21:43)
[2017-09-30 22:19] LABS: INR 0.97 (0.82-1.09)
[2017-09-30] MEDS ORDERED: ACETAMINOPHEN 1000 MG/100 ML VIAL (NON FORMULARY) IVPB ONE (22:21)
[2017-09-30] MEDS ORDERED: ACETAMINOPHEN INJECTION 100 ML IVPB ONE (22:58)
[2017-09-30] MEDS ORDERED: morphine SULFATE 4 MG/ML VIAL IVPUSH PRN (23:00)
[2017-09-30] MEDS ORDERED: morphine CARPU-JECT 4 MG/1 ML DISP.SYRIN IVPUSH PRN (23:00)
[2017-10-01 02:05] VITALS: BMI 29.9
--- NOTE | 2017-10-01 05:41 | HP ---
Admitting History and Physical - Primary Care Physician PCP: Jessica Mena - Admission Chief Complaint: Fall, Right Arm Pain History of Present Illness: This is a 67 y/o woman with significant medical history of Osteoporosis c/b Kyphosis, Spinal Stenosis s/p Laminectomy, Lung CA s/p R Lobectomy 40%, CAD s/p 7x stents (last one 2010), COPD, Emphysema, Pneumonia x2, Bronchitis x3, HTN, PAD Hypothyroidism, Hep C ( treated w/Interferon, 2006 undectable) Former IVDU ( on Methadone), Acalasia, and recent right wrist fracture x2 (March and July 2016, repaired surgically both occurrences). Who presents to the ED today after falling onto her right wrist. She reports that she was leaning down to unplug a cord today using her left hand and lost her balance, falling onto her right arm. She immediately experienced pain and noticed a gross deformity. She does note that she has had problems with her balance recently, but she has been seen by neurology for evaluation and has a follow-up scheduled soon. Otherwise, she denies any new symptoms, new medications, fevers/chills, or changes to her physical condition. She had recovered well from her last right forearm repair and had recently started going without her splint. History Source: Patient Limitations to Obtaining History: No Limitations - Past Medical History Cardiovascular: Yes: CAD, HTN, PR, Other (PAF) Pulmonary: Yes: Bronchitis, Cancer (history of lung cancer), COPD, Pneumonia, Other (Emphysema Lung Ca (R- upper lobe removed, 40%)) Gastrointestinal: Yes: GERD Hepatobiliary: Yes: Hepatitis C Reproductive: Yes: Postmenopausal ...: No Psych: Yes: Addictions (IVDU), Depression, Other (chronic insomnia) Musculoskeletal: Yes: Osteoarthritis, Other (Stenosis Herniated Discs Bulges) Endocrine: Yes: Hypothyroidism - Past Surgical History Past Surgical History: Yes: Joint Replacement (R-Hip), Laminectomy, Stent Additional Past Surgical History: R- wrist x2 ( - Smoking History Smoking history: Former smoker Have you smoked in the past 12 months: No Aproximately how many cigarettes per day: 1 If you are a former smoker, when did you quit?: 2009 - Alcohol/Substance Use Hx Alcohol Use: No History of Substance Use: reports: Heroin (YEARS ago) - Social History History of Recent Travel: No Home Medications - Allergies Allergies/Adverse Reactions: Allergies Allergy/AdvReac Type Severity Reaction Status Date / Time No Known Allergies Allergy Verified 09/30/17 17:00 - Home Medications Home Medications: Ambulatory Orders Aspirin [ASA -] 81 mg PO DAILY #0 tab.chew 04/22/12 Albuterol Sulfate Inhaler - [Ventolin HFA Inhaler -] 2 inh PO Q6H PRN 08/20/15 Budesonide/Formeterol Fumarate [SYMBICORT 80/4.5mcg -] 1 inh PO BID 08/20/15 Cholecalciferol (Vitamin D3) [Vitamin D3] 50,000 unit PO WEEKLY 08/20/15 Diltiazem Cd [Cardizem Cd -] 1 cap PO DAILY 04/22/17 Levothyroxine [Synthroid -] 125 mcg PO DAILY 04/22/17 Methadone [Dolophine -] 130 mg PO DAILY 04/22/17 Omeprazole 40 mg PO DAILY 04/22/17 Pravastatin Sodium [Pravachol -] 20 mg PO HS 04/22/17 Valacyclovir HCl [Valtrex -] 500 mg PO DAILY 04/22/17 Venlafaxine HCl ER [Effexor Xr -] 75 mg PO DAILY 04/22/17 Furosemide [Lasix -] 40 mg PO DAILY PRN 05/08/17 Multivitamin [Multiple Vitamins] 1 each PO DAILY 05/08/17 Sennosides [Senna -] 2 tab PO DAILY 05/08/17 Docusate Sodium [Colace -] 100 mg PO TID #90 capsule 06/24/17 Bupropion HCl [Wellbutrin Xl -] 150 mg PO BID 08/01/17 Lactulose (Oral Use) [Cephulac -] 20 gm PO ASDIR 08/01/17 Magnesium Oxide [Magnesium] 400 mg PO DAILY 08/01/17 Naloxegol Oxalate [Movantik] 25 mg PO WEEKLY 08/01/17 Potassium Chloride [K-Tab ER] 20 meq PO DAILY 08/01/17 Prochlorperazine Maleate [Compazine] 10 mg PO AC PRN 08/01/17 Ibuprofen [Motrin -] 800 mg PO DAILY PRN 09/14/17 Losartan Potassium [Cozaar] 25 mg PO DAILY 09/14/17 Metolazone 2.5 mg PO PRN 09/14/17 Walker [Ultra-Light Rollator] 1 each MC DAILY #1 each 09/18/17 Amoxicillin/Potassium Clav [Augmentin 875-125 Tablet] 1 each PO BID #10 tablet 09/19/17 Solifenacin Succinate [Vesicare -] 10 mg PO DAILY tab 09/19/17 Family Disease History - Family Disease History Family Disease History: Heart Disease: Father, Brother, Respiratory: Mother, Other: Sister (cocaine overdose) Review of Systems - Review of Systems Constitutional: reports: No Symptoms Eyes: reports: No Symptoms HENT: reports: No Symptoms Neck: reports: No Symptoms Cardiovascular: reports: No Symptoms Respiratory: reports: No Symptoms Gastrointestinal: reports: No Symptoms Genitourinary: reports: No Symptoms Breasts: reports: No Symptoms Reported Musculoskeletal: reports: Decreased ROM, Extremity Pain, Joint Swelling Integumentary: reports: No Symptoms Neurological: reports: No Symptoms Endocrine: reports: No Symptoms Hematology/Lymphatic: reports: No Symptoms Psychiatric: reports: No Symptoms Physical Examination Vital Signs: Vital Signs Temperature 98.0 F 10/01/17 00:21 Pulse Rate 71 10/01/17 00:21 Respiratory Rate 18 10/01/17 00:21 Blood Pressure 134/86 10/01/17 00:21 O2 Sat by Pulse Oximetry (%) 100 10/01/17 00:21 Constitutional: Yes: Mild Distress Labs: CBC, BMP 09/30/17 18:40 09/30/17 18:40 Imaging - Results Chest X-ray: Image Reviewed X-ray: Image Reviewed EKG: Pending Problem List - Problems (1) Fracture, radius and ulna, shaft Code(s): S52.209A - UNSP FRACTURE OF SHAFT OF UNSP ULNA, INIT FOR CLOS FX; S52.309A - UNSP FRACTURE OF SHAFT OF UNSP RADIUS, INIT FOR CLOS FX Qualifiers: Encounter type: sequela Fracture type: closed Laterality: right Qualified Code(s): S52.301S - Unspecified fracture of shaft of right radius, sequela; S52.201S - Unspecified fracture of shaft of right ulna, sequela (2) Fall at home Code(s): W19.XXXA - UNSPECIFIED FALL, INITIAL ENCOUNTER; Y92.009 - UNSP PLACE IN [facility] NON[facility] (PR[facility] RESIDENCE PL[facility] (3) Epilepsy Code(s): G40.909 - EPILEPSY, UNSP, NOT INTRACTABLE, WITHOUT STATUS EPILEPTICUS Qualifiers: Partial seizure type: with complex partial seizures Intractability: not intractable Status epilepticus: without status epilepticus (4) Kyphosis Code(s): M40.209 - UNSPECIFIED KYPHOSIS, SITE UNSPECIFIED (5) Anxiety Code(s): F41.9 - ANXIETY DISORDER, UNSPECIFIED (7) COPD (chronic obstructive pulmonary disease) Code(s): J44.9 - CHRONIC OBSTRUCTIVE PULMONARY DISEASE, UNSPECIFIED Qualifiers: COPD type: chronic bronchitis (8) Constipation Code(s): K59.00 - CONSTIPATION, UNSPECIFIED (9) H/O: lung cancer Code(s): Z85.118 - PERSONAL HISTORY OF MALIGNANT NEOPLASM OF BRONCHUS AND LUNG (10) HTN (hypertension) Code(s): I10 - ESSENTIAL (PRIMARY) HYPERTENSION Qualifiers: Hypertension type: essential hypertension Qualified Code(s): I10 - Essential (primary) hypertension (11) Hyperthyroidism Code(s): E05.90 - THYROTOXICOSIS, UNSP WITHOUT THYROTOXIC CRISIS OR STORM (12) Kyphosis due to osteoporosis Code(s): M81.0 - AGE-RELATED OSTEOPOROSIS W/O CURRENT PATHOLOGICAL FRACTURE; M40.10 - OTHER SECONDARY KYPHOSIS, SITE UNSPECIFIED (13) Lumbar post-laminectomy syndrome Code(s): M96.1 - POSTLAMINECTOMY SYNDROME, NOT ELSEWHERE CLASSIFIED (14) Methadone maintenance therapy patient Code(s): F11.20 - OPIOID DEPENDENCE, UNCOMPLICATED (15) Nocturnal leg cramps Code(s): G47.62 - SLEEP RELATED LEG CRAMPS (16) PAD (peripheral artery disease) Code(s): I73.9 - PERIPHERAL VASCULAR DISEASE, UNSPECIFIED (17) Paroxysmal atrial fibrillation Code(s): I48.0 - PAROXYSMAL ATRIAL FIBRILLATION (18) Spinal stenosis Code(s): M48.00 - SPINAL STENOSIS, SITE UNSPECIFIED (19) Vitamin D deficiency Code(s): E55.9 - VITAMIN D DEFICIENCY, UNSPECIFIED Assessment/Plan 67 y/o woman with multiple co-morbidities. Admitted for Radius/Ulnar Fx secondary to mechanical fall at home. Plan Will admit to M/S Xrays of wrist, forearm, elbow- XR right forearm with +displaced hardware plate for radius, comminuted displaced mid shaft radius and ulna fx. 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 - New Patient This patient is new to me today: Yes Date on this admission: 09/30/17 - Critical Care Critical Care patient: No Hospitalist Screening - Colonoscopy Questionnaire Colonoscopy Questionnaire: Colonoscopy Questionnaire - Patient: 50 - 75 years old and never had a screening colonoscopy: No History of colon or rectal polyps, or CA: No History of IBD, Crohn's disease or UC: No History of abdominal radiation therapy as a child: No - Relative: 1 with colon or rectal CA, or polyps at age 60 or younger: No Colon or rectal CA diagnosed at age 45 or younger: No Multiple relatives with colon or rectal CA: No - Outcome: Screening Result: Negative Screen
[2017-10-01] MEDS ORDERED: PROCHLORPERAZINE MALEATE 5 MG TABLET PO PRN (05:57)
[2017-10-01] MEDS ORDERED: FUROSEMIDE 40 MG TABLET (FP) PO PRN (05:57)
[2017-10-01] MEDS ORDERED: METHADONE HCL 10 MG TABLET PO SCH (06:00)
[2017-10-01] MEDS: DEXTROSE 5%-0.45% SALINE 1,000 ML IV SCH (06:19)
[2017-10-01] MEDS: ACETAMINOPHEN 1000 MG/100 ML VIAL (NON FORMULARY) IVPB PRN ×3 (06:33→19:50)
[2017-10-01] MEDS: LEVOTHYROXINE NA 125 MCG TABLET (FP) PO SCH (06:34)
[2017-10-01] MEDS ORDERED: METHADONE HCL 40 MG DISPERSABLE TABLET ONE (06:49)
[2017-10-01] MEDS ORDERED: METHADONE HCL 10 MG TABLET ONE (06:49)
[2017-10-01] MEDS: METHADONE 120 MG, METHADONE 10 MG PO SCH (06:54)
[2017-10-01] MEDS ORDERED: PT OWN MED DRAWER 7, Y5N ONE ×2 (09:41→21:06)
[2017-10-01] MEDS: valACYclovir HCL 500 MG TABLET (FP) PO SCH (09:45)
[2017-10-01] MEDS: PANTOPRAZOLE 40 MG TABLET (FP) PO SCH (09:45)
[2017-10-01] MEDS: LOSARTAN POTASSIUM 25 MG TABLET PO SCH (09:45)
[2017-10-01] MEDS: VENLAFAXINE HCL 75 MG E.R. CAPSULES (FP) PO SCH (09:45)
[2017-10-01] MEDS: MAGNESIUM OXIDE 400 MG TABLET (FP) PO SCH (09:45)
[2017-10-01] MEDS: BUDESONIDE/FORMETEROL FUMARATE 80/4.5 mcg INHALER IH SCH ×2 (10:42→22:01)
--- NOTE | 2017-10-01 11:03 | PN ---
Progress Note, Physician Chief Complaint: events noted has pain in right arm - Current Medication List Current Medications: Active Medications Acetaminophen (Ofirmev Injection -) 1,000 mg IVPB Q6H PRN PRN Reason: PAIN LEVEL 7 - 10 Last Admin: 10/01/17 06:33 Dose: 1,000 mg Atorvastatin Calcium (Lipitor -) 10 mg PO [facility] Budesonide/Formoterol Fumarate (Symbicort 80/4.5mcg -) 1 puff IH BID [facility] Last Admin: 10/01/17 10:42 Dose: 1 puff Furosemide (Lasix -) 40 mg PO DAILY PRN PRN Reason: Dyspnea Dextrose/Sodium Chloride (D5-1/2ns -) 1,000 mls @ 42 mls/hr IV ASDIR [facility] Last Admin: 10/01/17 06:19 Dose: 42 mls/hr Levothyroxine Sodium (Synthroid -) 125 mcg PO DAILY@0700 [facility] Last Admin: 10/01/17 06:34 Dose: 125 mcg Losartan Potassium (Cozaar -) 25 mg PO DAILY [facility] Last Admin: 10/01/17 09:45 Dose: 25 mg Magnesium Oxide (Mag-Ox -) 400 mg PO DAILY [facility] Last Admin: 10/01/17 09:45 Dose: 400 mg Methadone HCl 120 mg/ (Methadone HCl 10 mg) 130 mg PO DAILY@0600 [facility] Last Admin: 10/01/17 06:54 Dose: 130 mg Pantoprazole Sodium (Protonix -) 40 mg PO DAILY [facility] Last Admin: 10/01/17 09:45 Dose: 40 mg Prochlorperazine Maleate (Compazine -) 10 mg PO TIDAC PRN PRN Reason: NAUSEA Valacyclovir HCl (Valtrex -) 500 mg PO DAILY [facility] Last Admin: 10/01/17 09:45 Dose: 500 mg Venlafaxine HCl (Effexor Xr -) 75 mg PO DAILY [facility] Last Admin: 10/01/17 09:45 Dose: 75 mg - Objective Vital Signs: Vital Signs Temperature 98.7 F 10/01/17 09:00 Pulse Rate 72 10/01/17 09:00 Respiratory Rate 20 10/01/17 09:00 Blood Pressure 165/97 10/01/17 09:00 O2 Sat by Pulse Oximetry (%) 100 10/01/17 00:21 Constitutional: Yes: No Distress Cardiovascular: Yes: Regular Rate and Rhythm Respiratory: Yes: CTA Bilaterally Gastrointestinal: Yes: Normal Bowel Sounds, Soft. No: Tenderness Edema: Yes Edema: RUE: Trace Labs: CBC, BMP 09/30/17 18:40 09/30/17 18:40 INR, PTT INR 0.97 (0.82-1.09) 09/30/17 21:49 Problem List - Problems (1) Fall at home Code(s): W19.XXXA - UNSPECIFIED FALL, INITIAL ENCOUNTER; Y92.009 - UNSP PLACE IN [facility] NON[facility] (PRIVATE[facility] RESIDENCE PLACE (2) Fracture, radius and ulna, shaft Code(s): S52.209A - UNSP FRACTURE OF SHAFT OF UNSP ULNA, INIT FOR CLOS FX; S52.309A - UNSP FRACTURE OF SHAFT OF UNSP RADIUS, INIT FOR CLOS FX Qualifiers: Encounter type: sequela Fracture type: closed Laterality: right Qualified Code(s): S52.301S - Unspecified fracture of shaft of right radius, sequela; S52.201S - Unspecified fracture of shaft of right ulna, sequela (3) Wrist fracture Code(s): S62.109A - FRACTURE OF UNSP CARPAL BONE, UNSP WRIST, INIT FOR CLOS FX (4) Anxiety Code(s): F41.9 - ANXIETY DISORDER, UNSPECIFIED (6) HTN (hypertension) Code(s): I10 - ESSENTIAL (PRIMARY) HYPERTENSION Qualifiers: Hypertension type: essential hypertension Qualified Code(s): I10 - Essential (primary) hypertension Assessment/Plan plan arm is splinted she has previous fractures to the arm pain control ortho eval
--- NOTE | 2017-10-01 11:37 | EKG ---
Test Reason : Blood Pressure : / mmHG Vent. Rate : 060 BPM Atrial Rate : 060 BPM P-R Int : 150 ms QRS Dur : 096 ms QT Int : 464 ms P-R-T Axes : 071 058 070 degrees QTc Int : 464 ms POOR DATA QUALITY, INTERPRETATION MAY BE ADVERSELY AFFECTED NORMAL SINUS RHYTHM MINIMAL VOLTAGE CRITERIA FOR LVH, MAY BE NORMAL VARIANT BORDERLINE ECG WHEN COMPARED WITH ECG OF 14-SEP-2017 06:28, NO SIGNIFICANT CHANGE WAS FOUND Confirmed by SARAH VANEGAS, OSKAR ([id number]) on 10/01/2017 11:37:39 AM Referred By: Confirmed By:OSKAR SMITH MD
[2017-10-01] MEDS: IBUPROFEN 600 MG TABLET (FP) PO PRN (18:56)
[2017-10-01] MEDS ORDERED: ATORVASTATIN CA 10 MG TABLET (FP) PO SCH (22:00)
[2017-10-02] MEDS: IBUPROFEN 600 MG TABLET (FP) PO PRN (02:03)
[2017-10-02] MEDS: ACETAMINOPHEN 1000 MG/100 ML VIAL (NON FORMULARY) IVPB PRN ×2 (03:32→23:35)
[2017-10-02] MEDS ORDERED: METHADONE HCL 10 MG TABLET ONE (06:06)
[2017-10-02] MEDS ORDERED: METHADONE HCL 40 MG DISPERSABLE TABLET ONE (06:06)
[2017-10-02] MEDS: LEVOTHYROXINE NA 125 MCG TABLET (FP) PO SCH (06:12)
[2017-10-02] MEDS: METHADONE 120 MG, METHADONE 10 MG PO SCH (06:12)
[2017-10-02] MEDS ORDERED: PT OWN MED DRAWER 7, Y5N ONE ×2 (08:16→22:01)
[2017-10-02] MEDS: LOSARTAN POTASSIUM 25 MG TABLET PO SCH (09:14)
--- NOTE | 2017-10-02 09:38 | CON.ORTH ---
Consult Reason for Consultation:: right distal radius and ulna fx s/p ORIF - Past Medical History Cardio/Vascular: Yes: CAD, HTN, OR, Other (PAF) Pulmonary: Yes: Bronchitis, Cancer (history of lung cancer), COPD, Pneumonia, Other (Emphysema Lung Ca (R- upper lobe removed, 40%)) Gastrointestinal: Yes: GERD Hepatobiliary: Yes: Hepatitis C ...: No Psych: Yes: Addictions (IVDU), Depression, Other (chronic insomnia) Musculoskeletal: Yes: Osteoarthritis, Other (Stenosis Herniated Discs Bulges) Endocrine: Yes: Hypothyroidism - Past Surgical History Past Surgical History: Yes: Joint Replacement (R-Hip), Laminectomy, Stent - Alcohol/Substance Use Hx Alcohol Use: No History of Substance Use: reports: Heroin (YEARS ago) - Smoking History Smoking history: Former smoker Have you smoked in the past 12 months: No Aproximately how many cigarettes per day: 1 If you are a former smoker, when did you quit?: 2009 - Social History Usual Living Arrangement: Alone History of Recent Travel: No Home Medications - Allergies Allergies/Adverse Reactions: Allergies Allergy/AdvReac Type Severity Reaction Status Date / Time No Known Allergies Allergy Verified 09/30/17 17:00 - Home Medications Home Medications: Ambulatory Orders Aspirin [ASA -] 81 mg PO DAILY #0 tab.chew 04/22/12 Albuterol Sulfate Inhaler - [Ventolin HFA Inhaler -] 2 inh PO Q6H PRN 08/20/15 Budesonide/Formeterol Fumarate [SYMBICORT 80/4.5mcg -] 1 inh PO BID 08/20/15 Cholecalciferol (Vitamin D3) [Vitamin D3] 50,000 unit PO WEEKLY 08/20/15 Diltiazem Cd [Cardizem Cd -] 1 cap PO DAILY 04/22/17 Levothyroxine [Synthroid -] 125 mcg PO DAILY 04/22/17 Methadone [Dolophine -] 130 mg PO DAILY 04/22/17 Omeprazole 40 mg PO DAILY 04/22/17 Pravastatin Sodium [Pravachol -] 20 mg PO HS 04/22/17 Valacyclovir HCl [Valtrex -] 500 mg PO DAILY 04/22/17 Venlafaxine HCl ER [Effexor Xr -] 75 mg PO DAILY 04/22/17 Furosemide [Lasix -] 40 mg PO DAILY PRN 05/08/17 Multivitamin [Multiple Vitamins] 1 each PO DAILY 05/08/17 Sennosides [Senna -] 2 tab PO DAILY 05/08/17 Docusate Sodium [Colace -] 100 mg PO TID #90 capsule 06/24/17 Bupropion HCl [Wellbutrin Xl -] 150 mg PO BID 08/01/17 Lactulose (Oral Use) [Cephulac -] 20 gm PO ASDIR 08/01/17 Magnesium Oxide [Magnesium] 400 mg PO DAILY 08/01/17 Naloxegol Oxalate [Movantik] 25 mg PO WEEKLY 08/01/17 Potassium Chloride [K-Tab ER] 20 meq PO DAILY 08/01/17 Prochlorperazine Maleate [Compazine] 10 mg PO AC PRN 08/01/17 Ibuprofen [Motrin -] 800 mg PO DAILY PRN 09/14/17 Losartan Potassium [Cozaar] 25 mg PO DAILY 09/14/17 Metolazone 2.5 mg PO PRN 09/14/17 Walker [Ultra-Light Rollator] 1 each MC DAILY #1 each 09/18/17 Amoxicillin/Potassium Clav [Augmentin 875-125 Tablet] 1 each PO BID #10 tablet 09/19/17 Solifenacin Succinate [Vesicare -] 10 mg PO DAILY tab 09/19/17 Family Disease History - Family Disease History Family Disease History: Heart Disease: Father, Brother, Respiratory: Mother, Other: Sister (cocaine overdose) Physical Exam for Ortho Vital Signs: Vital Signs Temperature 98.4 F 10/02/17 06:00 Pulse Rate 60 10/02/17 06:00 Respiratory Rate 20 10/02/17 06:00 Blood Pressure 175/77 10/02/17 06:00 O2 Sat by Pulse Oximetry (%) 100 10/01/17 00:21 Labs: CBC, BMP 09/30/17 18:40 09/30/17 18:40 INR, PTT INR 0.97 (0.82-1.09) 09/30/17 21:49 - Upper Extremity Wrist: Yes: Right, Deformity, Limited ROM, Pain, Swelling, Tenderness, Other ( nvi) Imaging - Results X-ray: Report Reviewed, Image Reviewed Assessment/Plan 67 y/o woman with significant medical history of Osteoporosis c/b Kyphosis, Spinal Stenosis s/p Laminectomy, Lung CA s/p R Lobectomy 40%, CAD s/p 7x stents (last one 2010), COPD, Emphysema, Pneumonia x2, Bronchitis x3, HTN, PAD Hypothyroidism, Hep C ( treated w/Interferon, 2006 undectable) 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 Who presented to the ED after falling onto her right wrist. a/p Right distal radius and ulna fxs s/p orif now with failed hardware Pt seen with Dr. Fan Risks and benefits were discussed in detail OR for removal of hardware, CRPP vs possible orif NPO Surgical clearance d/w Dr. Fan
[2017-10-02] MEDS: MAGNESIUM OXIDE 400 MG TABLET (FP) PO SCH (09:55)
[2017-10-02] MEDS: PANTOPRAZOLE 40 MG TABLET (FP) PO SCH (09:55)
[2017-10-02] MEDS: VENLAFAXINE HCL 75 MG E.R. CAPSULES (FP) PO SCH (09:55)
[2017-10-02] MEDS: BUDESONIDE/FORMETEROL FUMARATE 80/4.5 mcg INHALER IH SCH ×2 (09:56→22:04)
[2017-10-02] MEDS: valACYclovir HCL 500 MG TABLET (FP) PO SCH (09:56)
[2017-10-02] MEDS ORDERED: ROPIVACAINE HCL 0.5% 30ML VIAL ONE (09:58)
[2017-10-02] MEDS ORDERED: MIDAZOLAM HCL 2 MG/2 ML SINGLE DOSE VIAL ONE ×3 (10:00→10:14)
[2017-10-02] MEDS ORDERED: LIDOCAINE HCL/PF 2% SDV 5ML VIAL ONE (10:13)
[2017-10-02] MEDS ORDERED: PROPOFOL 20 ML ONE (10:13)
[2017-10-02] MEDS ORDERED: ACETAMINOPHEN 325 MG TABLET (FP) PO PRN (11:13)
[2017-10-02] MEDS ORDERED: ceFAZolin SODIUM 1 GM VIAL ONE (11:30)
[2017-10-02] MEDS ORDERED: HEPARIN NA (PORCINE) 5,000 UNITS/ML 1ML VIAL ONE (11:32)
--- NOTE | 2017-10-02 11:41 | PN ---
Progress Note, Physician Chief Complaint: awaiting OR for right arm - Current Medication List Current Medications: Active Medications Atorvastatin Calcium (Lipitor -) 10 mg PO HS [facility] Last Admin: 10/01/17 22:01 Dose: 10 mg Budesonide/Formoterol Fumarate (Symbicort 80/4.5mcg -) 1 puff IH BID [facility] Last Admin: 10/02/17 09:56 Dose: Not Given Fentanyl (Sublimaze Injection -) 25 mcg IVPUSH [id number] PRN PRN Reason: PAIN-PACU ORDER X 4 DOSES ONLY Furosemide (Lasix -) 40 mg PO DAILY PRN PRN Reason: Dyspnea Ibuprofen (Motrin -) 600 mg PO Q8H PRN PRN Reason: PAIN LEVEL 6-10 Last Admin: 10/02/17 02:03 Dose: 600 mg Levothyroxine Sodium (Synthroid -) 125 mcg PO DAILY@0700 [facility] Last Admin: 10/02/17 06:12 Dose: 125 mcg Losartan Potassium (Cozaar -) 25 mg PO DAILY [facility] Last Admin: 10/02/17 09:14 Dose: 25 mg Magnesium Oxide (Mag-Ox -) 400 mg PO DAILY [facility] Last Admin: 10/02/17 09:55 Dose: Not Given Methadone HCl 120 mg/ (Methadone HCl 10 mg) 130 mg PO DAILY@0600 [facility] Last Admin: 10/02/17 06:12 Dose: 130 mg Oxycodone/Acetaminophen (Percocet 5/325 -) 1 combo PO Q6HPO PRN PRN Reason: PAIN LEVEL 7 - 10 Pantoprazole Sodium (Protonix -) 40 mg PO DAILY [facility] Last Admin: 10/02/17 09:55 Dose: Not Given Prochlorperazine Maleate (Compazine -) 10 mg PO TIDAC PRN PRN Reason: NAUSEA Valacyclovir HCl (Valtrex -) 500 mg PO DAILY [facility] Last Admin: 10/02/17 09:56 Dose: Not Given Venlafaxine HCl (Effexor Xr -) 75 mg PO DAILY [facility] Last Admin: 10/02/17 09:55 Dose: Not Given - Objective Vital Signs: Vital Signs Temperature 98.5 F 10/02/17 09:00 Pulse Rate 64 10/02/17 09:00 Respiratory Rate 20 10/02/17 09:00 Blood Pressure 172/70 10/02/17 09:00 O2 Sat by Pulse Oximetry (%) 100 10/01/17 00:21 Constitutional: Yes: No Distress Cardiovascular: Yes: Regular Rate and Rhythm Respiratory: Yes: CTA Bilaterally Gastrointestinal: Yes: Normal Bowel Sounds, Soft. No: Tenderness Edema: No Labs: CBC, BMP 09/30/17 18:40 09/30/17 18:40 INR, PTT INR 0.97 (0.82-1.09) 09/30/17 21:49 Problem List - Problems (1) Fall at home Code(s): W19.XXXA - UNSPECIFIED FALL, INITIAL ENCOUNTER; Y92.009 - UNSP PLACE IN [facility] (2) Fracture, radius and ulna, shaft Code(s): S52.209A - UNSP FRACTURE OF SHAFT OF UNSP ULNA, INIT FOR CLOS FX; S52.309A - UNSP FRACTURE OF SHAFT OF UNSP RADIUS, INIT FOR CLOS FX Qualifiers: Encounter type: sequela Fracture type: closed Laterality: right Qualified Code(s): S52.301S - Unspecified fracture of shaft of right radius, sequela; S52.201S - Unspecified fracture of shaft of right ulna, sequela (3) Wrist fracture Code(s): S62.109A - FRACTURE OF UNSP CARPAL BONE, UNSP WRIST, INIT FOR CLOS FX (4) Anxiety Code(s): F41.9 - ANXIETY DISORDER, UNSPECIFIED (6) HTN (hypertension) Code(s): I10 - ESSENTIAL (PRIMARY) HYPERTENSION Qualifiers: Hypertension type: essential hypertension Qualified Code(s): I10 - Essential (primary) hypertension Assessment/Plan plan arm is splinted she has previous fractures to the arm pain control Pt going for OR today
[2017-10-02] MEDS ORDERED: DEXAMETHASONE SOD PHOSPHATE 4 MG/1 ML VIAL ONE (11:59)
[2017-10-02] MEDS ORDERED: ceFAZolin SODIUM 1 GM VIAL IVPB ONE (12:03)
[2017-10-02] MEDS ORDERED: ePHEDrine SULFATE 50 MG/1 ML AMPULE ONE (12:14)
[2017-10-02] MEDS ORDERED: oxyCODONE HCL 5 MG TABLET PO PRN (12:18)
--- NOTE | 2017-10-02 13:23 | OP ---
Operative Note - Note: Operative Date: 10/02/17 ([facility]) Pre-Operative Diagnosis: right distal radius and ulna fx s/p orif with failed hardware Operation: right distal radius removal of hardware, ORIF, iliac crest bone harvest/grafting Post-Operative Diagnosis: Same as Pre-op Surgeon: Yann Fan Aids Counselor: Dakota Burk Anesthesiologist/WIND COMMISSIONING TECHNICIAN: Marisela Carlos Anesthesia: General, Local Specimens Removed: plate, screws Estimated Blood Loss (mls): 5 (tourniquet) Operative Report Dictated: Yes
--- NOTE | 2017-10-02 13:50 | OP ---
DATE OF OPERATION: 10/02/2017 PREOPERATIVE DIAGNOSIS: Failure of fixation status post fall, right radius. POSTOPERATIVE DIAGNOSIS: Failure of fixation status post fall, right radius. PROCEDURE: Removal of hardware, open reduction and internal fixation of right radius, iliac crest bone graft aspiration and harvest. SURGEON: Vance Fang MD CONSULTING ENGINEER: CORBIN Kearney ANESTHESIOLOGIST: Cristian Cruz MD ANESTHESIA: Right interscalene block and LMA anesthesia. DRAINS: None. COMPLICATIONS: None. BLOOD LOSS: Minimal. BLOOD GIVEN: None. FLUID REPLACEMENT: 700 mL This patient is a 67-year-old female with a preoperative diagnosis of a failure of fixation and failure of reduction status post fall. She had a significantly bent right radial plate and re-fracture through the previous radius fracture site. After extensive conversations with her and her brother, they understand the potential risks, complications, alternatives, and benefits of surgery versus nonsurgical treatment. They elected to undergo this procedure. They understand there is a chance of nonunion. There is a chance of this never healing. She may need additional surgery, additional hardware removal, and has to make great additional efforts to not fall as often as she has been recently. The patient was brought to the operating room. Peripheral IV placed. IV sedation given. A right interscalene block was performed. LMA anesthesia was induced. She received 1 g of IV Ancef. The right upper extremity was prepped and draped in sterile fashion, as was the right iliac crest. First, the right iliac crest bone marrow was aspirated. We were able to get out 60 mL of bone marrow aspirate. It was passed off the field, put into the centrifuge and centrifuged down including the buffy coat. The area was washed, dried. The poke hole closed with 2 ayan. It was then covered with gauze and Tegaderm. Next, our attention turned to the right distal radius. It had been prepped and draped in sterile fashion. It was elevated, exsanguinated with an Esmarch bandage. Tourniquet inflated to 250 mmHg. The previous incision was marked out and then made with a No. 15 scalpel blade. She had 2 previous distal radius fracture ORIF surgeries. We used the same incision. Although there was a lot of scar tissue, I was able to dissect down to the volar aspect of the distal radius. I could directly visualize the plate. All screws were removed. The plate came off easily. The bone was scraped free of fibrous tissue. I was able to do a provisional reduction. However, the force on it was so strong I felt there was no way that a K-wire would hold the reduction. In addition, the bone was of better quality than I expected with less of a gap. Therefore, I put on a Disha low-profile titanium locking plate. I was only able to get 2 screws distally because of the length between the distal radius and the fracture site and 4 screws proximally. All were locking screws. All had excellent bite, and I was able to compress the fracture site. X-rays were taken throughout, documenting excellent position of the reduced fragments as well as the hardware. I was quite happy with the reduction of the distal radius. Then, I used the bone marrow aspirate. I had presoaked 1 foam strip allograft that I cut in half. Half the bone marrow aspirate soaked foam I put on the radial aspect of the distal radius fracture and the other half on the ulnar aspect of the distal radius fracture. I was able then to sew tissue on top of these together to hold the foam in place. In addition, I was able to inject a significant amount of, approximately 5 mL, bone marrow aspirate into the distal radius fracture site and another 3 mL directly into the distal ulna fracture site. It all came together quite nicely. The soft tissue was then closed over the plate with 2-0 Vicryl sutures; 4-0 undyed Vicryl was used to close the deep dermal layer. Final skin reapproximation was done with a running subcuticular 4-0 Biosyn stitch. The area was then washed and dried, covered with Steri-Strips, 4 x 4 gauze, Webril, and a posterior Ortho-Glass splint was applied, wrapped with Karen and Naldo bandages. Total operative time was approximately 75 minutes. There were no complications during the case. The patient tolerated the procedure quite well and was brought to the regular recovery room in stable condition. VANCE FANG M.D. [id number]
[2017-10-02] MEDS ORDERED: PROCHLORPERAZINE MALEATE 5 MG TABLET PO PRN (13:57)
[2017-10-02] MEDS: ATORVASTATIN CA 10 MG TABLET (FP) PO SCH (22:04)
[2017-10-03] MEDS ORDERED: oxyCODONE HCL 5 MG TABLET PO ONE (02:05)
[2017-10-03] MEDS ORDERED: METHADONE HCL 10 MG TABLET ONE (05:41)
[2017-10-03] MEDS ORDERED: METHADONE HCL 40 MG DISPERSABLE TABLET ONE (05:42)
[2017-10-03] MEDS: METHADONE 120 MG, METHADONE 10 MG PO SCH (05:43)
[2017-10-03] MEDS: LEVOTHYROXINE NA 125 MCG TABLET (FP) PO SCH (06:10)
[2017-10-03] MEDS: ACETAMINOPHEN 1000 MG/100 ML VIAL (NON FORMULARY) IVPB PRN ×3 (06:10→21:36)
--- NOTE | 2017-10-03 09:34 | PN ---
Progress Note (short form) - Note Progress Note: Patient seen and examined Chart reviewed Chief complaint pain--- requesting pain medications s/p right radius ORIF with bone grafting pod #1 Vital Signs Temp 98.2 F 10/03/17 09:19 Pulse 71 10/03/17 09:19 Resp 18 10/03/17 09:19 BP 140/76 10/03/17 09:19 Pulse Ox 96 10/02/17 21:00 Intake & Output 10/02/17 10/02/17 10/03/17 11:59 23:59 11:59 Intake Total 1700 700 Output Total 210 Balance 1490 700 Weight 158 lb 2 oz 157 lb 1.6 oz Intake: IV 1200 IVPB 300 200 Oral 200 500 Output: Urine 200 Void 200 Estimated Blood Loss 10 Other: Voiding Method Toilet Bedpan # Unmeasured Voids Void 1 2 Bowel Movement No No # Bowel Movements 0 Weight Measurement Method Built in Bedscale Built in Bedscale Active Medications Acetaminophen (Ofirmev Injection -) 1,000 mg IVPB Q6H PRN PRN Reason: PAIN LEVEL 7 - 10 Last Admin: 10/03/17 06:10 Dose: 1,000 mg Atorvastatin Calcium (Lipitor -) 10 mg PO HS [facility] Last Admin: 10/02/17 22:04 Dose: 10 mg Budesonide/Formoterol Fumarate (Symbicort 80/4.5mcg -) 1 puff IH BID [facility] Last Admin: 10/02/17 22:04 Dose: 1 puff Fentanyl (Sublimaze Injection -) 25 mcg IVPUSH [id number] PRN PRN Reason: PAIN-PACU ORDER X 4 DOSES ONLY Last Admin: 10/02/17 14:20 Dose: 50 mcg Furosemide (Lasix -) 40 mg PO DAILY PRN PRN Reason: Dyspnea Levothyroxine Sodium (Synthroid -) 125 mcg PO DAILY@0700 [facility] Last Admin: 10/03/17 06:10 Dose: 125 mcg Losartan Potassium (Cozaar -) 25 mg PO DAILY [facility] Magnesium Oxide (Mag-Ox -) 400 mg PO DAILY [facility] Methadone HCl 120 mg/ (Methadone HCl 10 mg) 130 mg PO DAILY@0600 [facility] Last Admin: 10/03/17 05:43 Dose: 130 mg Pantoprazole Sodium (Protonix -) 40 mg PO DAILY [facility] Prochlorperazine Maleate (Compazine -) 10 mg PO TIDAC PRN PRN Reason: NAUSEA Valacyclovir HCl (Valtrex -) 500 mg PO DAILY [facility] Venlafaxine HCl (Effexor Xr -) 75 mg PO DAILY EDUARD CBC, BMP 09/30/17 18:40 09/30/17 18:40 Physical exam Constitutional: Yes mild distress due to pain Cardiovascular: Yes: Regular Rate and Rhythm Respiratory: Yes: CTA Bilaterally Gastrointestinal: Yes: Normal Bowel Sounds, Soft. No: Tenderness right arm--- in cast Problem List - Problems (1) Fall at home Code(s): W19.XXXA - UNSPECIFIED FALL, INITIAL ENCOUNTER; Y92.009 - UNSP PLACE IN [facility] NON-INSTITUT (PRIVATE) RESIDENCE PLACE (2) Fracture, radius and ulna, shaft Code(s): S52.209A - UNSP FRACTURE OF SHAFT OF UNSP ULNA, INIT FOR CLOS FX; S52.309A - UNSP FRACTURE OF SHAFT OF UNSP RADIUS, INIT FOR CLOS FX Qualifiers: Encounter type: sequela Fracture type: closed Laterality: right Qualified Code(s): S52.301S - Unspecified fracture of shaft of right radius, sequela; S52.201S - Unspecified fracture of shaft of right ulna, sequela (3) Wrist fracture Code(s): S62.109A - FRACTURE OF UNSP CARPAL BONE, UNSP WRIST, INIT FOR CLOS FX (4) Anxiety Code(s): F41.9 - ANXIETY DISORDER, UNSPECIFIED (6) HTN (hypertension) Code(s): I10 - ESSENTIAL (PRIMARY) HYPERTENSION Qualifiers: Hypertension type: essential hypertension Qualified Code(s): I10 - Essential (primary) hypertension Assessment/Plan postoperative #1 Continue present care Pain control and physical therapy discharge planning----anticipated later today or tomorrow Discussed with nursing staff We will follow
[2017-10-03] MEDS ORDERED: PT OWN MED DRAWER 7, Y5N ONE ×3 (09:58→21:34)
[2017-10-03] MEDS: PANTOPRAZOLE 40 MG TABLET (FP) PO SCH (10:03)
[2017-10-03] MEDS: BUDESONIDE/FORMETEROL FUMARATE 80/4.5 mcg INHALER IH SCH ×2 (10:04→22:59)
[2017-10-03] MEDS: MAGNESIUM OXIDE 400 MG TABLET (FP) PO SCH (10:04)
[2017-10-03] MEDS: LOSARTAN POTASSIUM 25 MG TABLET PO SCH (10:04)
[2017-10-03] MEDS: oxyCODONE HCL 5 MG TABLET PO PRN ×2 (11:18→15:02)
[2017-10-03] MEDS: VENLAFAXINE HCL 75 MG E.R. CAPSULES (FP) PO SCH (12:43)
[2017-10-03] MEDS: valACYclovir HCL 500 MG TABLET (FP) PO SCH (12:43)
--- NOTE | 2017-10-03 13:38 | PN ---
Progress Note (short form) - Note Progress Note: Ortho Pt seen and examined s/p right radius ORIF with bone grafting pod #1 Selected Entries 10/03/17 09:19 Temperature 98.2 F Pulse Rate 71 Respiratory 18 Rate Blood Pressure 140/76 Laboratory Tests 09/30/17 18:40 WBC 8.8 Hgb 10.0 L Hct 32.2 L Plt Count 352 splint c/d/i, +swelling in fingers, nvi a/p maintain splint strict elevation pain control ok to d/c from ortho pov
[2017-10-03] MEDS: ACETAMINOPHEN 325 MG TABLET (FP) PO PRN (15:03)
[2017-10-03] MEDS ORDERED: HYDROmorphone HCL 2 MG TABLET PO PRN (16:10)
[2017-10-03] MEDS: HYDROmorphone HCL 2 MG TABLET PO PRN (17:19)
[2017-10-03] MEDS: ATORVASTATIN CA 10 MG TABLET (FP) PO SCH (21:35)
[2017-10-03] MEDS: FUROSEMIDE 40 MG TABLET (FP) PO SCH ×2 (21:36→21:40)
[2017-10-04] MEDS: oxyCODONE HCL 5 MG TABLET PO PRN ×3 (02:13→13:56)
[2017-10-04] MEDS ORDERED: METHADONE HCL 40 MG DISPERSABLE TABLET ONE (05:09)
[2017-10-04] MEDS ORDERED: METHADONE HCL 10 MG TABLET ONE (05:09)
[2017-10-04] MEDS: HYDROmorphone HCL 2 MG TABLET PO PRN (05:11)
[2017-10-04] MEDS: METHADONE 120 MG, METHADONE 10 MG PO SCH (05:12)
[2017-10-04 05:36] VITALS: TEMP 98.4
[2017-10-04] MEDS: LEVOTHYROXINE NA 125 MCG TABLET (FP) PO SCH (06:04)
[2017-10-04] MEDS: PANTOPRAZOLE 40 MG TABLET (FP) PO SCH (09:34)
[2017-10-04] MEDS: MAGNESIUM OXIDE 400 MG TABLET (FP) PO SCH (09:34)
[2017-10-04] MEDS: ACETAMINOPHEN 325 MG TABLET (FP) PO PRN ×2 (09:35→13:56)
[2017-10-04] MEDS: VENLAFAXINE HCL 75 MG E.R. CAPSULES (FP) PO SCH (09:36)
[2017-10-04] MEDS: valACYclovir HCL 500 MG TABLET (FP) PO SCH (09:36)
[2017-10-04] MEDS: BUDESONIDE/FORMETEROL FUMARATE 80/4.5 mcg INHALER IH SCH (09:36)
[2017-10-04] MEDS: LOSARTAN POTASSIUM 25 MG TABLET PO SCH (09:36)
[2017-10-04] MEDS: FUROSEMIDE 40 MG TABLET (FP) PO SCH (09:37)
[2017-10-04 10:10] VITALS: BP 130/77; PULSE 76
--- NOTE | 2017-10-04 12:30 | DS ---
Physical Examination Vital Signs: Vital Signs Temperature 98.4 F 10/04/17 10:10 Pulse Rate 76 10/04/17 10:10 Respiratory Rate 18 10/04/17 05:33 Blood Pressure 130/77 10/04/17 10:10 O2 Sat by Pulse Oximetry (%) 95 10/04/17 08:06 Findings/Remarks: feels well pain better no new issues Constitutional: Yes: No Distress Neck: Yes: Supple Cardiovascular: Yes: Regular Rate and Rhythm Respiratory: Yes: CTA Bilaterally Gastrointestinal: Yes: Soft Wound/Incision: Yes: Dressing Dry and Intact Neurological: Yes: Alert Labs: CBC, BMP 09/30/17 18:40 09/30/17 18:40 Discharge Summary Reason For Visit: FRACTURE OF SHAFT OF ULNA AND RADIUS Current Active Problems Fall at home (Acute) Fracture, radius and ulna, shaft (Acute) Hospital Course: s/p right radius ORIF with bone grafting pod #2 stable d/c home pt to follow in office and with ortho as directed pt given short supply of pain meds for moderate to severe pain hcs looked meds reconcilled discussed with nursing staff also. Condition: Stable - Instructions Referrals: Jessica Mena MD [Primary Care Provider] - Disposition: HOME - Home Medications Comprehensive Discharge Medication List: Ambulatory Orders Aspirin [ASA -] 81 mg PO DAILY #0 tab.chew 04/22/12 Albuterol Sulfate Inhaler - [Ventolin HFA Inhaler -] 2 inh PO Q6H PRN 08/20/15 Budesonide/Formeterol Fumarate [SYMBICORT 80/4.5mcg -] 1 inh PO BID 08/20/15 Cholecalciferol (Vitamin D3) [Vitamin D3] 50,000 unit PO WEEKLY 08/20/15 Diltiazem Cd [Cardizem Cd -] 1 cap PO DAILY 04/22/17 Levothyroxine [Synthroid -] 125 mcg PO DAILY 04/22/17 Methadone [Dolophine -] 130 mg PO DAILY 04/22/17 Omeprazole 40 mg PO DAILY 04/22/17 Pravastatin Sodium [Pravachol -] 20 mg PO HS 04/22/17 Valacyclovir HCl [Valtrex -] 500 mg PO DAILY 04/22/17 Venlafaxine HCl ER [Effexor Xr -] 75 mg PO DAILY 04/22/17 Furosemide [Lasix -] 40 mg PO DAILY PRN 05/08/17 Multivitamin [Multiple Vitamins] 1 each PO DAILY 05/08/17 Sennosides [Senna -] 2 tab PO DAILY 05/08/17 Docusate Sodium [Colace -] 100 mg PO TID #90 capsule 06/24/17 Bupropion HCl [Wellbutrin Xl -] 150 mg PO BID 08/01/17 Lactulose (Oral Use) [Cephulac -] 20 gm PO ASDIR 08/01/17 Magnesium Oxide [Magnesium] 400 mg PO DAILY 08/01/17 Naloxegol Oxalate [Movantik] 25 mg PO WEEKLY 08/01/17 Potassium Chloride [K-Tab ER] 20 meq PO DAILY 08/01/17 Prochlorperazine Maleate [Compazine] 10 mg PO AC PRN 08/01/17 Ibuprofen [Motrin -] 800 mg PO DAILY PRN 09/14/17 Losartan Potassium [Cozaar] 25 mg PO DAILY 09/14/17 Metolazone 2.5 mg PO PRN 09/14/17 Walker [Ultra-Light Rollator] 1 each MC DAILY #1 each 09/18/17 Solifenacin Succinate [Vesicare -] 10 mg PO DAILY tab 09/19/17 Acetaminophen [Tylenol .Regular Strength -] 325 mg PO Q4H PRN tablet 10/04/17 oxyCODONE HCL [Roxicodone -] 5 mg PO Q6H PRN #15 tablet MDD 3 10/04/17
--- NOTE | 2017-10-07 12:53 | PATH ---
Surgical Pathology Report Patient Name: RIGO BRITT Med. Rec. #: [id number] /Age/Gender: 1950 (Age: 67) / F Account: [id number] Location: [address] [place] [address]/[facility] Taken: 10/02/2017 Received: 10/03/2017 Reported: 10/07/2017 Physicians: Tunde Felipe M.D. Specimen(s) Received 1 PLATE AND 11 SCREWS Clinical History Right ulnar radius fracture Final Diagnosis ONE PLATE AND 11 SCREWS, REMOVAL: METALLIC PLATES AND SCREWS. GROSS EXAMINATION ONLY. Electronically Signed Joceline Granados M.D. Gross Description Received fresh labeled "hardware/screws and plate," is an 8.7 x 2.4 x 0.2 cm mcghee metallic plate. Also received within the same container are 11 metallic screws ranging from 1.0-2.2 cm in length. No soft tissue is present. No sections are submitted, gross only. /10/06/2017 [facility]/10/06/2017
== END 2017-10-04 15:26 | disposition home or self-care (01) | DRG 496 ==
LOC: JER 16:09 → JERBED 19:51 → J6S 10-01 01:11
PROVIDERS: ADMIT Internal Medicine; ATTEND Internal Medicine
PROC: 2W3AX1Z Immobilization of Right Upper Arm using Splint (ICD-10-PCS; 2017-09-30)
PROC: 07DR3ZZ Extraction of Iliac Bone Marrow, Percutaneous Approach (ICD-10-PCS; 2017-10-02)
PROC: 0PPH04Z Removal of Internal Fixation Device from Right Radius, Open Approach (ICD-10-PCS; principal; 2017-10-02 10:00)
PROC: 0PSH04Z Reposition Right Radius with Internal Fixation Device, Open Approach (ICD-10-PCS; 2017-10-02 10:00)
DX: T84.112A Breakdown (mechanical) of internal fixation device of bone of right forearm, initial encounter (principal); S52.511A Displaced fracture of right radial styloid process, initial encounter for closed fracture; F11.20 Opioid dependence, uncomplicated; S52.611A Displaced fracture of right ulna styloid process, initial encounter for closed fracture; M96.631 Fracture of radius or ulna following insertion of orthopedic implant, joint prosthesis, or bone plate, right arm; F41.9 Anxiety disorder, unspecified; I10 Essential (primary) hypertension; M81.0 Age-related osteoporosis without current pathological fracture; Z85.118 Personal history of other malignant neoplasm of bronchus and lung; Z90.2 Acquired absence of lung [part of]; I25.10 Atherosclerotic heart disease of native coronary artery without angina pectoris; Z95.5 Presence of coronary angioplasty implant and graft; I73.9 Peripheral vascular disease, unspecified; I25.2 Old myocardial infarction; J43.9 Emphysema, unspecified; Z96.641 Presence of right artificial hip joint; W01.0XXA Fall on same level from slipping, tripping and stumbling without subsequent striking against object, initial encounter; Z87.891 Personal history of nicotine dependence; Y93.89 Activity, other specified; Y92.038 Other place in apartment as the place of occurrence of the external cause; Y99.8 Other external cause status; Z86.19 Personal history of other infectious and parasitic diseases; K21.9 Gastro-esophageal reflux disease without esophagitis
CPT/HCPCS: 36415; 71045-TC-FY; 73070-TC-RT-FY; 73090-TC-RT-FY; 73110-TC-RT-FY; 73130-TC-RT-FY; 76000-TC-FY; 80048; 85027; 85610; 86850; 86900; 86901; 93005; 93010; 99282-25; J0131; J1644

== ENCOUNTER 2018-03-11 19:47 | Emergency (ER) | payer OTHER ==
[2018-03-11 20:20] VITALS: BP 155/88; PULSE 87; TEMP 99.3; BMI 28.3
--- NOTE | 2018-03-11 21:40 | PDOC ---
History of Present Illness - General Chief Complaint: Constipation Stated Complaint: CONSTIPATION Time Seen by Provider: 03/11/18 21:19 - History of Present Illness Initial Comments: 03/11/18 21:37 67-year-old female presents for evaluation of constipation going on over the last week. She has a history of opioid-induced constipation. As well as multiple medical comorbidities. Past History - Past Medical History Allergies/Adverse Reactions: Allergies Allergy/AdvReac Type Severity Reaction Status Date / Time No Known Allergies Allergy Verified 03/11/18 20:21 Home Medications: Ambulatory Orders Aspirin [ASA -] 81 mg PO DAILY #0 tab.chew 04/22/12 Albuterol Sulfate Inhaler - [Ventolin HFA Inhaler -] 2 inh PO Q6H PRN 08/20/15 Budesonide/Formeterol Fumarate [SYMBICORT 80/4.5mcg -] 1 inh PO BID 08/20/15 Cholecalciferol (Vitamin D3) [Vitamin D3] 50,000 unit PO WEEKLY 08/20/15 Diltiazem Cd [Cardizem Cd -] 1 cap PO DAILY 04/22/17 Levothyroxine [Synthroid -] 125 mcg PO DAILY 04/22/17 Methadone [Dolophine -] 130 mg PO DAILY 04/22/17 Omeprazole 40 mg PO DAILY 04/22/17 Pravastatin Sodium [Pravachol -] 20 mg PO HS 04/22/17 Valacyclovir HCl [Valtrex -] 500 mg PO DAILY 04/22/17 Venlafaxine HCl ER [Effexor Xr -] 75 mg PO DAILY 04/22/17 Furosemide [Lasix -] 40 mg PO DAILY PRN 05/08/17 Multivitamin [Multiple Vitamins] 1 each PO DAILY 05/08/17 Bupropion HCl [Wellbutrin Xl -] 150 mg PO BID 08/01/17 Lactulose (Oral Use) [Cephulac -] 20 gm PO ASDIR 08/01/17 Magnesium Oxide [Magnesium] 400 mg PO DAILY 08/01/17 Naloxegol Oxalate [Movantik] 25 mg PO WEEKLY 08/01/17 Potassium Chloride [K-Tab ER] 20 meq PO DAILY 08/01/17 Prochlorperazine Maleate [Compazine] 10 mg PO AC PRN 08/01/17 Ibuprofen [Motrin -] 800 mg PO DAILY PRN 09/14/17 Losartan Potassium [Cozaar] 25 mg PO DAILY 09/14/17 Metolazone 2.5 mg PO PRN 09/14/17 Walker [Ultra-Light Rollator] 1 each MC DAILY #1 each 09/18/17 Solifenacin Succinate [Vesicare -] 10 mg PO DAILY tab 09/19/17 Acetaminophen [Tylenol .Regular Strength -] 325 mg PO Q4H PRN tablet 10/04/17 Ergocalciferol (Vitamin D2) [Vitamin D2] 50,000 unit PO Q7D #4 capsule 11/18/17 Docusate Sodium [Colace -] 100 mg PO TID #90 capsule 12/18/17 Sennosides [Senna -] 2 tab PO DAILY #60 tablet 12/18/17 Anemia: No Asthma: No Cancer: Yes (lung 2009, removed 03/27 rul, no chemo) Cardiac Disorders: Yes (CArdiac stent 03/31/17, [place] ) CVA: No COPD: Yes CHF: No Dementia: No Diabetes: No 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) Disorders: No HTN: Yes Hypercholesterolemia: No Liver Disease: No Psychiatric Problems: Yes (ANXIETY.Methadone program x 30 years) Seizures: No Thyroid Disease: Yes (on meds) Lung CA: Yes (ca, and emphazema) - Surgical History Abdominal Surgery: No Appendectomy: No Cardiac Surgery: Yes (seven stents, angiogram 03/2017) Cholecystectomy: No Lung Surgery: Yes (partial right lobectomy for ca, no chemo or radiation) Neurologic Surgery: No Orthopedic Surgery: Yes (right hip replacement 2013; right wrist surgery for fracture x 3 2016,2017) - Immunization History Immunization Up to Date: Yes - Suicide/Smoking/Psychosocial Hx Smoking Status: Yes Smoking History: Never smoked Have you smoked in the past 12 months: No Number of Cigarettes Smoked Daily: 1 If you are a former smoker, when did you quit?: 2009 Information on smoking cessation initiated: No 'Breaking Loose' booklet given: 12/06/12 Hx Alcohol Use: No Drug/Substance Use Hx: No Substance Use Type: None Hx Substance Use Treatment: Yes (methadone program , hx detox, rehab) Review of Systems - Review of Systems Constitutional: No: Fever ABD/GI: Yes: Constipated. No: Nausea, Vomiting *Physical Exam - Vital Signs Last Vital Signs Temp Pulse Resp BP Pulse Ox 99.3 F 87 18 155/88 95 03/11/18 20:14 03/11/18 20:14 03/11/18 20:14 03/11/18 20:14 03/11/18 20:14 - Physical Exam Comments: 03/11/18 21:38 HEAD: NC/AT EYES: Conjuntiva clear Ears: Canals and TM's normal NOSE: No d/c THROAT: Moist mucous membrances, oral pharanx clear, uvula midline NECK: Supple without adenopathy CARDIAC: S1 S2 LUNGS: CTA Full and Equal breath sounds ABDOMEN: Soft NT ND increased bowel sounds MS: Full ROM in all joints without edema NEUROLOGIC: No gross sensory or motor deficits, NVID SKIN: Normal color and temperature no lesions or rashes Moderate Sedation - Procedure Monitoring Vital Signs: Procedure Monitoring Vital Signs Temperature 99.3 F 03/11/18 20:14 Pulse Rate 87 03/11/18 20:14 Respiratory Rate 18 03/11/18 20:14 Blood Pressure 155/88 03/11/18 20:14 O2 Sat by Pulse Oximetry (%) 95 03/11/18 20:14 ED Treatment Course - RADIOLOGY Radiology Studies Ordered: Category Date Time Status ABDOMEN FLAT & UPRIGHT [RAD] Stat Radiology 03/11/18 21:19 Taken Medical Decision Making - Medical Decision Making 03/11/18 21:39 Stray show a large amount of stool in colon, no obstructive pattern. I had a long discussion with the patient she would like to just go home and try an enema at home. Benign examination *DC/Admit/Observation/Transfer Diagnosis at time of Disposition: Constipation - Discharge Dispostion Disposition: HOME Condition at time of disposition: Stable Decision to Admit order: No - Referrals Referrals: Jessica Mena MD [Primary Care Provider] - - Patient Instructions Printed Discharge Instructions: DI for Constipation, Constipation Additional Instructions: Please use a Fleet enema as directed return to the emergency room should she have any further issues follow-up with your primary care physician in one to 2 days for further evaluation and treatment options. - Post Discharge Activity
== END 2018-03-11 21:54 | disposition home or self-care (01) ==
LOC: JERFT 19:47
DX: K59.00 Constipation, unspecified (principal); I25.10 Atherosclerotic heart disease of native coronary artery without angina pectoris; I11.9 Hypertensive heart disease without heart failure; Z95.5 Presence of coronary angioplasty implant and graft; I25.2 Old myocardial infarction; F41.9 Anxiety disorder, unspecified; Z85.118 Personal history of other malignant neoplasm of bronchus and lung; E07.9 Disorder of thyroid, unspecified; Z90.2 Acquired absence of lung [part of]; Z96.641 Presence of right artificial hip joint
CPT/HCPCS: 74019-TC-FY; 99281-25

== ENCOUNTER 2019-04-05 10:43 | Inpatient (IN) | payer OTHER ==
[2019-04-05 10:51] VITALS: BMI 25.6
--- NOTE | 2019-04-05 11:10 | PDOC ---
History of Present Illness - General Chief Complaint: Chest Pain Stated Complaint: CHEST PAIN Time Seen by Provider: 04/05/19 11:09 - History of Present Illness Initial Comments: 04/05/19 12:43 69 y/o f hx of Lung Ca s/p R lung lobectomy, spinal stenosis, CAD s/p stents x7 (2010) , COPD, HTN , IVDU, Hep C, hypothyroidism, currently on methadone presenting with chest pain that started this a.m. She began experiencing pressure like chest pain (mid-sternal ) when she was at home this morning. Denies any precipitating event or trauma. Pain radiates to both arms bilaterally , with no radiation to her back. She denies any exacerbating/ alleviating factors. She was given aspirin en route by EMS. She endorses nausea. she denies , fevers, chills, sick contacts, vomiting, diaphoresis, positional changes in chest pain, hx of blood clots, recent travel/surgery, hormone use. 04/05/19 15:21 Past History - Past Medical History Allergies/Adverse Reactions: Allergies Allergy/AdvReac Type Severity Reaction Status Date / Time No Known Allergies Allergy Verified 04/05/19 10:50 Home Medications: Ambulatory Orders Aspirin [ASA -] 81 mg PO DAILY #0 tab.chew 04/22/12 Albuterol Sulfate Inhaler - [Ventolin HFA Inhaler -] 2 inh PO Q6H PRN 08/20/15 Budesonide/Formeterol Fumarate [SYMBICORT 80/4.5mcg -] 1 inh PO BID 08/20/15 Diltiazem Cd [Cardizem Cd -] 1 cap PO DAILY 04/22/17 Levothyroxine [Synthroid -] 137.5 mcg PO DAILY 04/22/17 Methadone [Dolophine -] 130 mg PO DAILY 04/22/17 Omeprazole 40 mg PO DAILY 04/22/17 Pravastatin Sodium [Pravachol -] 20 mg PO HS 04/22/17 Valacyclovir HCl [Valtrex -] 500 mg PO DAILY 04/22/17 Venlafaxine HCl ER [Effexor Xr -] 75 mg PO DAILY 04/22/17 Furosemide [Lasix -] 40 mg PO DAILY PRN 05/08/17 Multivitamin [Multiple Vitamins] 1 each PO DAILY 05/08/17 Magnesium Oxide [Magnesium] 400 mg PO DAILY 08/01/17 Naloxegol Oxalate [Movantik] 25 mg PO WEEKLY 08/01/17 Potassium Chloride [K-Tab ER] 20 meq PO DAILY 08/01/17 Prochlorperazine Maleate [Compazine] 10 mg PO AC PRN 08/01/17 Ibuprofen [Motrin -] 800 mg PO DAILY PRN 09/14/17 Losartan Potassium [Cozaar] 50 mg PO DAILY 09/14/17 Metolazone 2.5 mg PO PRN 09/14/17 traZODone HCL [Trazodone HCl] 250 mg PO HS 08/06/18 Docusate Sodium [Colace -] 100 mg PO TID #90 capsule 01/14/19 Ergocalciferol (Vitamin D2) [Vitamin D2] 50,000 unit PO Q7D #4 capsule 01/14/19 Sennosides [Senna] 2 tab PO DAILY #60 tablet 01/14/19 Tizanidine HCl 4 mg PO TID #90 tablet 01/14/19 Anemia: No Asthma: No Cancer: Yes (lung 2009, removed 03/27 rul, no chemo) Cardiac Disorders: Yes (CArdiac stent x 7 (03/31/17, [place] 09) CVA: No COPD: Yes CHF: No Dementia: No Diabetes: No 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) Disorders: No HTN: Yes Hypercholesterolemia: No Liver Disease: No Psychiatric Problems: Yes (ANXIETY.Methadone program x 30 years) Seizures: No Thyroid Disease: Yes (on meds) Lung CA: Yes (ca, and emphazema) - Surgical History Abdominal Surgery: No Appendectomy: No Cardiac Surgery: Yes (seven stents, angiogram 03/2017) Cholecystectomy: No Lung Surgery: Yes (partial right lobectomy for ca, no chemo or radiation) Neurologic Surgery: No Orthopedic Surgery: Yes (right hip replacement 2013; right wrist surgery for fracture x 3 2016,2017) - Immunization History Immunization Up to Date: Yes - Psycho Social/Smoking Cessation Hx Smoking Status: Yes Smoking History: Current every day smoker Have you smoked in the past 12 months: No Number of Cigarettes Smoked Daily: 1 If you are a former smoker, when did you quit?: 2009 Information on smoking cessation initiated: No 'Breaking Loose' booklet given: 12/06/12 Hx Alcohol Use: No Drug/Substance Use Hx: No Substance Use Type: Heroin, Tranquilizers Hx Substance Use Treatment: Yes (methadone program , hx detox, rehab) *Physical Exam - Vital Signs Last Vital Signs Temp Pulse Resp BP Pulse Ox 98.0 F 65 16 133/80 100 04/05/19 10:47 04/05/19 10:47 04/05/19 10:47 04/05/19 10:47 04/05/19 10:47 - Physical Exam 04/05/19 11:52 GENERAL: Awake, alert, and oriented. looks fatigued. HEAD: No signs of trauma, normocephalic, atraumatic EYES: PERRLA, EOMI, ENT: Auricles normal inspection, hearing grossly normal, nares patent, oropharynx clear without exudates. Moist mucosa NECK: Normal ROM, supple, no lymphadenopathy, JVD, or masses LUNGS: speaks full sentences, decreased breath sounds at lung bases. HEART: bradycardic, normal rhythm, normal S1 and S2, no murmurs, rubs or gallops. ABDOMEN: Soft, nontender, normoactive bowel sounds. No guarding, no rebound. EXTREMITIES : Normal inspection, Normal range of motion,+ edema. No clubbing or cyanosis NEUROLOGICAL: Cranial nerves II through XII grossly intact. Normal speech, normal gait, no focal sensorimotor deficits SKIN: Warm, Dry, normal turgor, no rashes or lesions noted Heart Score/ECG Review - History History: Moderately suspicious - Electrocardiogram EKG: Non specific repolarization disturbance - Age Age: 45-65 - Risk Factors Risk Factors Heart Score: Yes Hx Hypertension, Yes Smoking History, Yes Positive family hx of cardiac disease Based on the list above the patient has:: >/=3 risk factors or Hx atherosclerotic disease - Troponin Troponin: 1-3x normal limit - Score Heart Score - Total: 6 ED Treatment Course - LABORATORY CBC & Chemistry Diagram: 04/05/19 12:16 04/05/19 13:49 Medical Decision Making - Medical Decision Making 04/05/19 11:50 69 y/o f hx of Lung Ca s/p R lung lobectomy, spinal stenosis, CAD s/p stents x7 (2010) , COPD, HTN , IVDU, Hep C, hypothyroidism, currently on methadone presenting with chest pain that started this a.m. workup cbc, cmp, ekg, pt/inr, ptt, troponin, chest x-ray (portable) Ekg sinus bradycardia, possible inferior infarct age undetermined (same as last EKG on file) 04/05/19 15:52 troponin elevated 0.37 Meds received so far. IV tylenol 1000mg viscous lidocaine, pepcid, mylanta after failure of the above interventions, pt given 4 mg of morphine IV for pain. pt admitted to Dr. Mena service, signed out to Dr. Dennis for NSTEMI Dr. Rivera consulted agrees with heparin bolus and heparin drip. 04/05/19 16:10 repeat EKG junctional rhythm, minimal voltage criteria for LVH, possible inferior infarct, age undetermined abnormal EKG. 04/05/19 19:36 repeat troponin collected and sent about 2.5 hours ago. Lab called. confirmed receipt of jungle top tube. Pt signed out to day team 04/05/19 19:37 04/11/19 19:39 04/11/19 19:40 Discharge - Discharge Information Problems reviewed: Yes Clinical Impression/Diagnosis: Elevated troponin, NSTEMI (non-ST elevated myocardial infarction) Condition: Guarded Disposition: TRANSFER ACUTE CARE/OTHER HOSP - Follow up/Referral - Patient Discharge Instructions - Post Discharge Activity
[2019-04-05] MEDS ORDERED: ACETAMINOPHEN 1000 MG/100 ML VIAL (NON FORMULARY) IVPB ONE ×2 (11:45→22:29)
[2019-04-05] MEDS ORDERED: ACETAMINOPHEN INJECTION 100 ML IVPB ONE ×2 (12:08→22:31)
[2019-04-05 12:44] LABS: BASO % 0.4 % (0-2.0); EOS % 0.5 % (0-4.5); HEMATOCRIT 35.9 % (32.4-45.2); HEMOGLOBIN 11.9 GM/dL (10.7-15.3); LYMPH % 10.7 % (8-40); MCH 29.9 pg (25.7-33.7); MCHC 33.2 g/dl (32.0-36.0); MEAN CELL VOLUME 90.2 fl (80-96); MEAN PLT VOLUME 9.3 fl (7.5-11.1); MONO % 3.2 % (3.8-10.2); NEUT % 85.2 % (42.8-82.8); PLATELET COUNT 256 K/MM3 (134-434); RBC 3.99 M/mm3 (3.60-5.2); RDW 19.6 % (11.6-15.6); WHITE BLOOD COUNT 9.7 K/mm3 (4.0-10.0)
[2019-04-05 13:10] LABS: INR 0.9 (0.83-1.09); PROTHROMBIN TIME (PATIENT) 10.6 SEC (9.7-13.0)
[2019-04-05 13:12] LABS: ACTIVATED PTT 29.2 SECONDS (25.2-36.5)
[2019-04-05] MEDS ORDERED: FAMOTIDINE 20 MG/50 ML IVPB 20 MG/50 ML MG IVPB ONE ×2 (14:23→15:23)
[2019-04-05] MEDS ORDERED: LIDOCAINE VISCOUS 2% ORAL/TOP 20 ML UNIT-DOSE CUP MM ONE (14:23)
[2019-04-05] MEDS ORDERED: MAG HYDROX/AL HYDROX/SIMETH 30 ML UNIT-DOSE CUP PO ONE (14:23)
[2019-04-05 15:08] LABS: BLOOD UREA NITROGEN 19.7 mg/dL (7-18); CALCIUM 8.6 mg/dL (8.5-10.1); POTASSIUM 3.9 mmol/L (3.5-5.1)
--- NOTE | 2019-04-05 15:19 | EKG ---
Test Reason : Blood Pressure : / mmHG Vent. Rate : 056 BPM Atrial Rate : 056 BPM P-R Int : 170 ms QRS Dur : 114 ms QT Int : 488 ms P-R-T Axes : 065 052 074 degrees QTc Int : 470 ms SINUS BRADYCARDIA POSSIBLE INFERIOR INFARCT , AGE UNDETERMINED ABNORMAL ECG WHEN COMPARED WITH ECG OF 01-OCT-2017 00:32, T WAVE VARIATION Confirmed by PIPE HIGGINS MD ([id number]) on 04/05/2019 3:19:06 PM Referred By: Confirmed By:PIPE HIGGINS MD
[2019-04-05] MEDS ORDERED: MAG HYDROX/AL HYDROX/SIMETH 30 ML UNIT-DOSE CUP ONE (15:22)
[2019-04-05] MEDS ORDERED: LIDOCAINE VISCOUS 2% ORAL/TOP 20 ML UNIT-DOSE CUP ONE (15:22)
[2019-04-05] MEDS ORDERED: morphine CARPU-JECT 4 MG/1 ML DISP.SYRIN IVPUSH ONE (15:37)
[2019-04-05] MEDS ORDERED: morphine SULFATE 4 MG/ML VIAL ONE (15:42)
--- NOTE | 2019-04-05 15:48 | PDOC ---
Documentation entered by Chacorta Pemberton SCRIBE, acting as scribe for Kyle Bee MD. Kyle Bee MD: This documentation has been prepared by the Nilay alejandro Xhesika, SCRIBE, under my direction and personally reviewed by me in its entirety. I confirm that the documentation accurately reflects all work, treatment, procedures, and medical decision making performed by me. Attending Attestation - Resident Resident Name: RianaPhilomenashannanIoana - ED Attending Attestation I have performed the following: I have examined & evaluated the patient, The case was reviewed & discussed with the resident, I agree w/resident's findings & plan, Exceptions are as noted - HPI HPI: 04/05/19 14:23 The patient is a 69 year old female with a PMH of [place] in 2001 s/p stents x7, emphysema, PAD, HCV (undetectable), lung cancer (40% of right lung), hypothyroidism, achalasia, total hip replacement who presents to the ED for chest pain radiating to bilateral arms since 9am. Pt states she had similar symptoms with her past [place]. Pt states she has a sick cat at home who is on abx. Pt notes she takes aspirin everyday. The patient denies shortness of breath, headache and dizziness. Denies fever, chills, cough, nausea, vomiting, diarrhea and constipation. Denies dysuria, frequency, urgency and hematuria. Allergies:, NKDA Social Hx: Denies current smoking, drinking, or other substance usage. PCP: Jessica Mena - Physicial Exam PE: 04/05/19 14:24 Vitals: Triage Vital signs reviewed General Appearance: no acute distress, well nourished well developed, Chest Wall: Nontender Cardiac: Regular rate and rhythm, no murmurs, no rubs, no gallops, Lungs: Clear to auscultation bilateral, good air movement bilaterally, Abdomen: Soft, nondistended, normal bowel sounds, nontender to palpation Extremities: Full range of motion to all extremities, no cyanosis, clubbing, or edema Skin: Warm and dry, no rashes or lesions, no petechiae Neuro: AOX3; Cranial Nerves 2-12 grossly c intact, Strength intact to all extremities, Sensation intact to all extremities Psych: normal mood, normal affect - Medical Decision Making 04/05/19 15:47 69 years old with lung cancer right lung lobectomy spinal stenosis CAD status post 7 stents COPD hypertension IVDU hep C hypothyroidism presents to the ED with chest pain starting this a.m. EKG demonstrates sinus bradycardia [address] elevations no T wave inversions inferior infarct age-indeterminate Troponin return back elevated Page placed to cardiology We will admit to medicine start patient on heparin drip for further management.
[2019-04-05] MEDS ORDERED: HEPARIN NA (PORCINE) 5,000 UNITS/ML 1ML VIAL IVPUSH PRN ×2 (15:56)
[2019-04-05] MEDS ORDERED: ASPIRIN 81 MG CHEWABLE TABLETS PO ONE (15:56)
[2019-04-05] MEDS ORDERED: HEPARIN NA (PORCINE) 5,000 UNITS/ML 1ML VIAL IVPUSH ONE (15:56)
[2019-04-05 16:00] VITALS: TEMP 98.1
[2019-04-05] MEDS ORDERED: HEPARIN INFUSION - 25,000 UNITS/500 ML INFUS.BAG IVPB SCH (16:00)
--- NOTE | 2019-04-05 16:04 | PN ---
Progress Note (short form) - Note Progress Note: Pt has hx of PAF (remote) and has been in NSR for > 3 years. Remote h/o CAD s/p PCI after IWMI many years ago. Maintained on ASA therapy. Had nuclear stress in September 2018 prior to elective surgery showed old inferoapical scar with mild shayna-infarct ischemia and low nl EF. Did fine with surgery. Now presents to ER w/ CP and borderline elevated TnI. Case d/w Dr. Bee: admit to tele/ [facility] gtts while enzymes trended. If clear upswing in enzymes or if hx is concerning for true UA will cath. Full consult to follow.
[2019-04-05] MEDS ORDERED: HEPARIN NA (PORCINE) 5,000 UNITS/ML 1ML VIAL ONE (16:37)
[2019-04-05] MEDS ORDERED: ASPIRIN 81 MG CHEWABLE TABLETS ONE (16:37)
[2019-04-05] MEDS ORDERED: HEPARIN INFUSION - 25,000 UNITS/500 ML INFUS.BAG IVPB ONE (16:38)
[2019-04-05] MEDS ORDERED: FUROSEMIDE 40 MG TABLET (FP) PO PRN (17:16)
[2019-04-05] MEDS ORDERED: ALBUTEROL SO4 HFA INHALER IH PRN (17:16)
--- NOTE | 2019-04-05 17:24 | HP ---
Admitting History and Physical - Primary Care Physician PCP: Jessica Mena - Admission Chief Complaint: cp History of Present Illness: Pt seen/ examined in ER Chart reviewed. In summary 69 y/o f hx of Lung Ca s/p R lung lobectomy, spinal stenosis, CAD s/p stents x7 (2010) , COPD, HTN , IVDU, Hep C, hypothyroidism, currently on methadone presenting with chest pain.+ +VE Troponins Pt seen by cardiology - Started on heparin drip To be admitted to Tele History Source: Patient Limitations to Obtaining History: No Limitations - Past Medical History Cardiovascular: Yes: CAD, HTN, AR, Other (PAF) Pulmonary: Yes: Bronchitis, Cancer (history of lung cancer), COPD, Pneumonia, Other (Emphysema Lung Ca (R- upper lobe removed, 40%)) Gastrointestinal: Yes: GERD Hepatobiliary: Yes: Hepatitis C Psych: Yes: Addictions (IVDU), Depression, Other (chronic insomnia) Musculoskeletal: Yes: Osteoarthritis, Other (Stenosis Herniated Discs Bulges) Endocrine: Yes: Hypothyroidism - Past Surgical History Past Surgical History: Yes: Joint Replacement (R-Hip), Laminectomy, Stent - Smoking History Smoking history: Current every day smoker Have you smoked in the past 12 months: No Aproximately how many cigarettes per day: 1 If you are a former smoker, when did you quit?: 2009 - Alcohol/Substance Use Hx Alcohol Use: No History of Substance Use: reports: Heroin (YEARS ago) - Social History History of Recent Travel: No Home Medications - Allergies Allergies/Adverse Reactions: Allergies Allergy/AdvReac Type Severity Reaction Status Date / Time No Known Allergies Allergy Verified 04/05/19 10:50 - Home Medications Home Medications: Ambulatory Orders Aspirin [ASA -] 81 mg PO DAILY #0 tab.chew 04/22/12 Albuterol Sulfate Inhaler - [Ventolin HFA Inhaler -] 2 inh PO Q6H PRN 08/20/15 Budesonide/Formeterol Fumarate [SYMBICORT 80/4.5mcg -] 1 inh PO BID 08/20/15 Diltiazem Cd [Cardizem Cd -] 1 cap PO DAILY 04/22/17 Levothyroxine [Synthroid -] 137.5 mcg PO DAILY 04/22/17 Methadone [Dolophine -] 130 mg PO DAILY 04/22/17 Omeprazole 40 mg PO DAILY 04/22/17 Pravastatin Sodium [Pravachol -] 20 mg PO HS 04/22/17 Valacyclovir HCl [Valtrex -] 500 mg PO DAILY 04/22/17 Venlafaxine HCl ER [Effexor Xr -] 75 mg PO DAILY 04/22/17 Furosemide [Lasix -] 40 mg PO DAILY PRN 05/08/17 Multivitamin [Multiple Vitamins] 1 each PO DAILY 05/08/17 Magnesium Oxide [Magnesium] 400 mg PO DAILY 08/01/17 Naloxegol Oxalate [Movantik] 25 mg PO WEEKLY 08/01/17 Potassium Chloride [K-Tab ER] 20 meq PO DAILY 08/01/17 Prochlorperazine Maleate [Compazine] 10 mg PO AC PRN 08/01/17 Ibuprofen [Motrin -] 800 mg PO DAILY PRN 09/14/17 Losartan Potassium [Cozaar] 50 mg PO DAILY 09/14/17 Metolazone 2.5 mg PO PRN 09/14/17 traZODone HCL [Trazodone HCl] 250 mg PO HS 08/06/18 Docusate Sodium [Colace -] 100 mg PO TID #90 capsule 01/14/19 Ergocalciferol (Vitamin D2) [Vitamin D2] 50,000 unit PO Q7D #4 capsule 01/14/19 Sennosides [Senna] 2 tab PO DAILY #60 tablet 01/14/19 Tizanidine HCl 4 mg PO TID #90 tablet 01/14/19 Review of Systems - Review of Systems Constitutional: reports: No Symptoms Eyes: reports: No Symptoms HENT: reports: No Symptoms Neck: reports: No Symptoms Cardiovascular: reports: Chest Pain, Shortness of Breath Gastrointestinal: reports: No Symptoms Genitourinary: reports: No Symptoms Neurological: reports: No Symptoms Psychiatric: reports: Anxiety Physical Examination Vital Signs: Vital Signs Temperature 98.1 F 04/05/19 15:58 Pulse Rate 60 04/05/19 15:58 Respiratory Rate 18 04/05/19 15:58 Blood Pressure 172/97 H 04/05/19 15:58 O2 Sat by Pulse Oximetry (%) 100 04/05/19 15:58 Constitutional: Yes: No Distress, Anxious Eyes: Yes: Conjunctiva Clear Neck: Yes: Supple Cardiovascular: Yes: Regular Rate and Rhythm Respiratory: Yes: CTA Bilaterally Gastrointestinal: Yes: Soft Edema: No Neurological: Yes: Alert Labs: CBC, BMP 04/05/19 12:16 04/05/19 13:49 Imaging - Results Chest X-ray: Image Reviewed EKG: Image Reviewed Problem List - Problems (1) Chest pain due to CAD Code(s): I25.119 - ATHSCL HEART DISEASE OF [place] COR ART W UNSP ANG PCTRS (2) Anxiety Code(s): F41.9 - ANXIETY DISORDER, UNSPECIFIED (3) H/O: lung cancer Code(s): Z85.118 - PERSONAL HISTORY OF MALIGNANT NEOPLASM OF BRONCHUS AND LUNG (4) HTN (hypertension) Code(s): I10 - ESSENTIAL (PRIMARY) HYPERTENSION Qualifiers: Hypertension type: essential hypertension Qualified Code(s): I10 - Essential (primary) hypertension (5) Hyperthyroidism Code(s): E05.90 - THYROTOXICOSIS, UNSP WITHOUT THYROTOXIC CRISIS OR STORM (6) Methadone maintenance therapy patient Code(s): F11.20 - OPIOID DEPENDENCE, UNCOMPLICATED Assessment/Plan admit tele Orders written Monitor Cardiac Enzymes Cardilogy on case Heparin as protocol May need cath if Trop Trends upwards Will follow D/W RN also as well as ER Physician
[2019-04-05] MEDS ORDERED: PATIENT'S OWN MEDICATION (NON-FORMULARY) (Naloxegol Oxalate [Movantik] 25 MG) PO SCH (17:30)
[2019-04-05] MEDS ORDERED: ONDANSETRON 4 MG/2 ML VIAL IVPUSH ONE ×2 (19:07→21:13)
--- NOTE | 2019-04-05 20:36 | PDOC ---
*Physical Exam - Vital Signs Last Vital Signs Temp Pulse Resp BP Pulse Ox 98.1 F 65 20 172/97 H 99 04/05/19 15:58 04/05/19 20:15 04/05/19 20:15 04/05/19 15:58 04/05/19 20:15 ED Treatment Course - LABORATORY CBC & Chemistry Diagram: 04/05/19 12:16 04/05/19 13:49 - ADDITIONAL ORDERS Additional order review: Laboratory Results 04/05/19 04/05/19 04/05/19 13:49 12:16 11:23 PT with INR 10.60 INR 0.90 PTT (Actin FS) 29.2 Sodium 138 Cancelled Potassium 3.9 Cancelled Chloride 106 Cancelled Carbon Dioxide 27 Cancelled Anion Gap 5 L Cancelled BUN 19.7 H Cancelled Creatinine 1.0 Cancelled Est GFR (CKD-EPI)AfAm 67.04 Cancelled Est GFR (CKD-EPI)NonAf 57.84 Cancelled Random Glucose 93 Cancelled Calcium 8.6 Cancelled Total Bilirubin Cancelled AST Cancelled ALT Cancelled Alkaline Phosphatase Cancelled Troponin I 0.37 H Cancelled Total Protein Cancelled Albumin Cancelled 04/05/19 12:16 RBC 3.99 MCV 90.2 MCHC 33.2 RDW 19.6 H MPV 9.3 Neutrophils % 85.2 H D Lymphocytes % 10.7 D Monocytes % 3.2 L Eosinophils % 0.5 D Basophils % 0.4 - Medications Given in the ED: ED Medications Discontinued Medications Generic Name Dose Route Start Last Admin Trade Name Freq PRN Reason Stop Dose Admin Acetaminophen 1,000 mg 04/05/19 11:45 04/05/19 12:22 Ofirmev Injection - IVPB 04/05/19 11:46 1,000 mg ONCE ONE Administration Al Hydroxide/Mg Hydroxide 30 ml 04/05/19 14:23 04/05/19 15:28 Mylanta Oral Suspension - PO 04/05/19 14:24 30 ml ONCE ONE Administration Aspirin 162 mg 04/05/19 15:56 04/05/19 17:10 Asa - PO 04/05/19 15:57 162 mg ONCE ONE Administration Heparin Sodium (Porcine) 3,800 unit 04/05/19 15:56 04/05/19 17:00 Heparin - 60 unit/kg (3800 unit) 04/05/19 15:57 3,800 unit IVPUSH Administration ONCE ONE Famotidine/Sodium Chloride 20 mg in 50 mls @ 100 mls/hr 04/05/19 14:23 15:25 Pepcid 20 Mg Premixed Ivpb - IVPB 04/05/19 14:52 100 mls/hr ONCE ONE Administration Lidocaine HCl 20 ml 04/05/19 14:23 04/05/19 15:25 Xylocaine 2% Viscous Oral - MM 04/05/19 14:24 20 ml ONCE ONE Administration Morphine Sulfate 4 mg 04/05/19 15:37 04/05/19 15:51 Morphine Injection - IVPUSH 04/05/19 15:38 4 mg ONCE ONE Administration Medical Decision Making - Medical Decision Making 04/05/19 20:35 this patient was signed out from Day team - admitted for NSTEMI - on heparin - f/u trop Was called by lab and informed of troponin of 6.67 - calling Dr. Rivera - calling Dr. Radha Dennis 04/05/19 20:45 d/w Dr. Mackenzie covering for Dr. Rivera regarding elevated trop, the following are his recs: - c/w heparin - plavix 600 - if no signs of HF; 25 PO lopressor - if BP elevated; 5mg Amlodipine - Atorvastatin 80mg 04/05/19 21:00 Pt states she has decreased pain from when she presented, denies any episodes of increased pain States she is nauseous Exam shows: GEN: NAD CARDIAC: S1/S2, RRR, NO M/R/G LUNGS: CTAB EXT: NO LE PITTING EDEMA - zofran was ordered but was cancelled 2/2 RN shift change - All cardiology recs ordered w/ exception of lopressor 2/2 HR 50s - RPT EKG EKG 1547 HR 60 [place] * QRS 96 QTc 470 poor baseline EKG 2101 HR 58 [place] 156 QRS 98 QTc 453 Rhythm strip showing sinus rhythm, no changes compared to 1547 EKG d/w Dr. Radha Dennis regarding elevated trop: Cardiology c/s, Dr. Alva is [employer] airspace control officer 04/05/19 22:27 notified by RN that pt chest pain was increasing. pt states her cp increased from 3/10 to a 5/10 rpt ekg obtained without significant change - SLNTG remaining management per admitting team. Discharge - Discharge Information Problems reviewed: Yes Clinical Impression/Diagnosis: Elevated troponin, NSTEMI (non-ST elevated myocardial infarction) Condition: Guarded - Follow up/Referral - Patient Discharge Instructions - Post Discharge Activity
[2019-04-05] MEDS ORDERED: CLOPIDOGREL BISULFATE 300 MG TABLET PO ONE (21:08)
[2019-04-05] MEDS ORDERED: ATORVASTATIN CA 80 MG TABLET (FP) PO ONE (21:08)
[2019-04-05] MEDS ORDERED: amLODIPine BESYLATE 5 MG TABLET (FP) PO ONE (21:13)
[2019-04-05] MEDS ORDERED: ATORVASTATIN CA 80 MG TABLET (FP) ONE (21:19)
[2019-04-05] MEDS ORDERED: CLOPIDOGREL BISULFATE 300 MG TABLET ONE (21:19)
[2019-04-05] MEDS ORDERED: amLODIPine BESYLATE 5 MG TABLET (FP) ONE (21:19)
[2019-04-05] MEDS ORDERED: ONDANSETRON 4 MG/2 ML VIAL ONE (21:20)
[2019-04-05] MEDS ORDERED: TIZANIDINE HCL 4 MG TABLET PO SCH (22:00)
[2019-04-05] MEDS ORDERED: BUDESONIDE/FORMETEROL FUMARATE 80/4.5 mcg INHALER IH SCH (22:00)
[2019-04-05] MEDS ORDERED: DOCUSATE SODIUM 100 MG CAPSULE (FP) PO SCH (22:00)
[2019-04-05] MEDS ORDERED: NITROGLYCERIN SUBLINGUAL 1/150 0.4 MG TAB SL ONE (22:19)
[2019-04-05] MEDS ORDERED: DOCUSATE SODIUM 100 MG CAPSULE (FP) PO ONE (22:31)
[2019-04-05] MEDS ORDERED: ACETAMINOPHEN 650 MG/20.3 ML ORAL SOLUTION (CUPS) PO ONE (22:35)
[2019-04-05] MEDS ORDERED: ACETAMINOPHEN 325 MG TABLET (FP) ONE (22:37)
[2019-04-06] MEDS ORDERED: ONDANSETRON 4 MG/2 ML VIAL IVPUSH ONE (00:42)
[2019-04-06] MEDS ORDERED: NITROGLYCERIN 2% OINTMENT - 1GM PACKET TD ONE ×2 (00:42→01:07)
[2019-04-06] MEDS ORDERED: ONDANSETRON 4 MG/2 ML VIAL ONE (01:07)
[2019-04-06] MEDS ORDERED: FAMOTIDINE 20 MG/50 ML IVPB 20 MG/50 ML MG IVPB ONE ×2 (01:48→03:15)
[2019-04-06] MEDS ORDERED: MAG HYDROX/AL HYDROX/SIMETH 30 ML UNIT-DOSE CUP PO ONE (01:48)
[2019-04-06] MEDS ORDERED: MAG HYDROX/AL HYDROX/SIMETH 30 ML UNIT-DOSE CUP ONE (03:15)
[2019-04-06] MEDS ORDERED: hydrALAZINE HCL 50 MG TABLET (FP) PO ONE (03:50)
[2019-04-06] MEDS ORDERED: hydrALAZINE HCL 25 MG TABLET (FP) ONE (04:14)
[2019-04-06] MEDS ORDERED: ONDANSETRON *ODT* 4 MG TABLET ONE (04:53)
[2019-04-06 05:22] VITALS: BP 147/84; PULSE 66
--- NOTE | 2019-04-06 05:22 | HOSP ---
Subjective - Review of Symptoms Events since last encounter: 69 year old female with PMhx of Lung Ca s/p R lung lobectomy, spinal stenosis, CAD s/p stents x7 (2010) , COPD, HTN , IVDU, Hep C, hypothyroidism, currently on methadone presenting with chest pain that started this a.m. She began experiencing pressure like chest pain (mid-sternal ) when she was at home this morning. Pain radiates to both arms bilaterally, with no radiation to her back. Patient was seen/admitted by Dr. Barrios for NSTEMI. Patient admitted with NSTEMI, trop trending, initally in ED given morphin 4mg, ASA 162mg x2, Nitro 0.4 SL x1, then 2% paste. Given second troponin of 6.67 Dr. Rivera called at 04/05/19 20:45 case discussed d/w Dr. Mackenzie covering for Dr. Rivera by ED regarding elevated trop, the following recs noted: Continue with heparin drip, plavix 600, and Atorvastatin 80mg. EKG 1547 HR 60 [place] * QRS 96 QTc 470 poor baseline. @3:15 am microblog received from Dr. alcala in ED, patient trop trending up now 15.6 , ( 0.37 --> 6.6--> 15.5) with increase chest pain and SOB repeat EKG HR 58 [place] 156 QRS 98 QTc 453 Rhythm strip showing sinus rhythm, no changes compared from prior ECG. Patient seen at beside along with DR. Patricia curiel c/o of increased CP 6/7 out of 10 with SOB. Will given Nitro, switch o2 NC to venti mask 40%, given hydralazine 50 mg x1 continue with heparin drip. Patient will be transferred to [facility]. @ 3:[address] RN [address] [facility] gave report, facesheet/ECG was sent. Patient was admitted under [facility] services. Transportation services set. Spoke to patient and brother aware and agrees with transfer. Patient under risk of transfer. Physical Examination Vital Signs: Vital Signs Temperature 98.1 F 04/05/19 15:58 Pulse Rate 60 04/06/19 04:24 Respiratory Rate 13 04/06/19 04:24 Blood Pressure 173/84 H 04/06/19 04:24 O2 Sat by Pulse Oximetry (%) 96 04/06/19 04:24 Labs: CBC, BMP 04/05/19 12:16 04/05/19 13:49
[2019-04-06] MEDS ORDERED: LEVOTHYROXINE 125 MCG, LEVOTHYROXINE 12.5 MCG PO SCH (07:00)
[2019-04-06] MEDS ORDERED: MULTIVITAMINS (DAILY MVI) TABLET (FP) PO SCH (10:00)
[2019-04-06] MEDS ORDERED: MAGNESIUM OXIDE 400 MG TABLET (FP) PO SCH (10:00)
[2019-04-06] MEDS ORDERED: LOSARTAN POTASSIUM 50 MG TABLET (FP) PO SCH (10:00)
[2019-04-06] MEDS ORDERED: PATIENT'S OWN MEDICATION (NON-FORMULARY) (Omeprazole [Omeprazole] 40 MG) PO SCH (10:00)
[2019-04-06] MEDS ORDERED: LEVOTHYROXINE NA 125 MCG TABLET (FP) PO SCH (10:00)
[2019-04-06] MEDS ORDERED: PATIENT'S OWN MEDICATION (NON-FORMULARY) (Magnesium Oxide [Magnesium] 400 MG) PO SCH (10:00)
[2019-04-06] MEDS ORDERED: POTASSIUM CHLORIDE TABS 20 MEQ TABLET.ER (FP) PO SCH (10:00)
[2019-04-06] MEDS ORDERED: LOSARTAN POTASSIUM 25 MG TABLET PO SCH (10:00)
[2019-04-06] MEDS ORDERED: PATIENT'S OWN MEDICATION (NON-FORMULARY) (Potassium Chloride [K-Tab Er] 20 MEQ) PO SCH (10:00)
[2019-04-06] MEDS ORDERED: valACYclovir HCL 500 MG TABLET (FP) PO SCH (10:00)
[2019-04-06] MEDS ORDERED: VENLAFAXINE HCL 75 MG E.R. CAPSULES PO SCH (10:00)
[2019-04-06] MEDS ORDERED: CLOPIDOGREL BISULFATE 75 MG TABLET (FP) PO SCH (10:00)
[2019-04-06] MEDS ORDERED: SENNOSIDES 8.6MG TABLET (FP) PO SCH (10:00)
[2019-04-06] MEDS ORDERED: ASPIRIN 81 MG CHEWABLE TABLETS PO SCH (10:00)
[2019-04-06] MEDS ORDERED: METHADONE HCL 10 MG TABLET PO SCH (10:00)
[2019-04-06] MEDS ORDERED: PANTOPRAZOLE 40 MG TABLET PO SCH (10:00)
--- NOTE | 2019-04-06 12:36 | EKG ---
Test Reason : Blood Pressure : / mmHG Vent. Rate : 060 BPM Atrial Rate : 060 BPM P-R Int : 156 ms QRS Dur : 098 ms QT Int : 478 ms P-R-T Axes : 068 043 013 degrees QTc Int : 478 ms NORMAL SINUS RHYTHM INFERIOR INFARCT (CITED ON OR BEFORE 05-APR-2019) ABNORMAL ECG Confirmed by MD VAZ GREGORY ([id number]) on 04/06/2019 12:36:08 PM Referred By: Confirmed By:SILVANA VAZ MD
--- NOTE | 2019-04-06 12:37 | EKG ---
Test Reason : Blood Pressure : / mmHG Vent. Rate : 058 BPM Atrial Rate : 058 BPM P-R Int : 156 ms QRS Dur : 098 ms QT Int : 462 ms P-R-T Axes : 052 010 -13 degrees QTc Int : 453 ms SINUS BRADYCARDIA POSSIBLE LEFT ATRIAL ENLARGEMENT INFERIOR INFARCT (CITED ON OR BEFORE 05-APR-2019) CANNOT RULE OUT ANTERIOR INFARCT , AGE UNDETERMINED ABNORMAL ECG Confirmed by MD MILIND, SILVANA ([id number]) on 04/06/2019 12:37:08 PM Referred By: Confirmed By:SILVANA VAZ MD
--- NOTE | 2019-04-06 12:42 | EKG ---
Test Reason : Blood Pressure : / mmHG Vent. Rate : 060 BPM Atrial Rate : 340 BPM P-R Int : 000 ms QRS Dur : 096 ms QT Int : 470 ms P-R-T Axes : 000 040 068 degrees QTc Int : 470 ms POOR DATA QUALITY, INTERPRETATION MAY BE ADVERSELY AFFECTED NORMAL SINUS RHYTHM MINIMAL VOLTAGE CRITERIA FOR LVH, MAY BE NORMAL VARIANT POSSIBLE INFERIOR INFARCT (CITED ON OR BEFORE 05-APR-2019) ABNORMAL ECG Confirmed by MD MILIND, SILVANA ([id number]) on 04/06/2019 12:41:46 PM Referred By: Confirmed By:SILVANA VAZ MD
== END 2019-04-06 05:22 | disposition short-term general hospital (02) | DRG 281 ==
LOC: JER 10:43 → JERBED 15:43
PROVIDERS: ADMIT Internal Medicine; ATTEND Internal Medicine
DX: I21.4 Non-ST elevation (NSTEMI) myocardial infarction (principal); F11.20 Opioid dependence, uncomplicated; J44.9 Chronic obstructive pulmonary disease, unspecified; I10 Essential (primary) hypertension; E03.9 Hypothyroidism, unspecified; I25.119 Atherosclerotic heart disease of native coronary artery with unspecified angina pectoris; M48.00 Spinal stenosis, site unspecified; F41.9 Anxiety disorder, unspecified; R00.1 Bradycardia, unspecified; I73.9 Peripheral vascular disease, unspecified; K21.9 Gastro-esophageal reflux disease without esophagitis; K22.0 Achalasia of cardia; B19.20 Unspecified viral hepatitis C without hepatic coma; Z85.118 Personal history of other malignant neoplasm of bronchus and lung; Z96.641 Presence of right artificial hip joint; Z90.2 Acquired absence of lung [part of]; Z95.5 Presence of coronary angioplasty implant and graft
CPT/HCPCS: 36415; 71045-TC-FY; 80048; 84484; 85025; 85610; 85730; 87389; 87522; 93005; 93010; 99285-25; J0131; J1644

== ENCOUNTER 2019-11-29 20:30 | Inpatient (IN) | payer OTHER ==
[2019-11-29] MEDS ORDERED: ASPIRIN 81 MG CHEWABLE TABLETS PO ONE (20:36)
--- NOTE | 2019-11-29 20:39 | PDOC ---
Attending Attestation - Resident Resident Name: Paulie Sanchez - ED Attending Attestation I have performed the following: I have examined & evaluated the patient, The case was reviewed & discussed with the resident, I agree w/resident's findings & plan, Exceptions are as noted - HPI HPI: 11/29/19 21:03 slender 69 yo female BIBA for nausea,elevated blood pressure and concern for chest "discomfort" 11/30/19 00:26 - Physicial Exam PE: 11/30/19 00:26 this 28 yo female p/w chest tightness that she states is h er asthma head ncat neck supple lungs cta b/l cvs [id number] abdomen nontender skin warm and dry no cva tenderness extremities no edema no clubbing. 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 PCP 11/29/19 21:22 repeat BP shows SBP 184 she had a mild headache upon arrival that has resolved 11/29/19 21:54 Reviewed labs and there is no anemia, her electrolytes are unremarkable,negative troponin the BPN is elevated imp ACS will admit to telemetry Discharge - Discharge Information Problems reviewed: Yes Clinical Impression/Diagnosis: Paroxysmal atrial fibrillation, CAD - multiple stents, Status post total hip replacement, right HTN (hypertension) Qualifiers: Hypertension type: essential hypertension Qualified Code(s): I10 - Essential (primary) hypertension - Follow up/Referral - Patient Discharge Instructions - Post Discharge Activity
[2019-11-29] MEDS ORDERED: ASPIRIN 81 MG CHEWABLE TABLETS ONE (20:40)
[2019-11-29] MEDS ORDERED: ACETAMINOPHEN 1000 MG/100 ML VIAL (NON FORMULARY) IVPB ONE (20:53)
--- NOTE | 2019-11-29 20:54 | PDOC ---
History of Present Illness - General Chief Complaint: Blood Pressure Problem Stated Complaint: CHEST DISCOMFORT Time Seen by Provider: 11/29/19 20:35 History Source: Patient Exam Limitations: No Limitations - History of Present Illness Initial Comments: 11/29/19 20:49 PCP: Dr. Jessica Mena Cards: Dr. Rivera Pulm: Dr. George Vascular: Dr. Wooten Pain: Dr. Tasha Mckeon GI: Dr. Velasco HPI: 69 yo F pmh CAD, [place] 2001 and 04/06/2019 (s/p 7 sents, last placed 2010, ballooned 03/2019), COVID positive 06/2019, Neuropathy, COPD (on 4L home O2), hep c in 2006 s/p treatment, lung cancer 2009 40% R lung removed, hypothyroidism, achalasia 05/2014 poem procedure, laminectomy and fusion in 2013, arthritis and scoliosis stage 3, stenosis with herniated disks presenting with hypertension, nausea, "mild frontal headache." Patient was feeling in her usual state of health when she developed nausea, general malaise this evening and found her BP to be over 200/90s and presented to the ED. Took her daily aspirin 81 and plavix earlier, did not experience chest pain so she did not take a nitro. Reports she recently was discontinued on oneof her bp medications and is now only on Lopressor 25mg BID which she also took today. At present, reporting only a "mild" frontal headache, denies vision changes, nausea at present, vomiting, severe / different than usual headache. Denies chest pain, SOB, diaphoresis, weakness, numbness / tingling. EMS called in for chest pain, "something pre-excitation" and denied any STEMI. Arrived with three strips, one of which appeared to have inferior lead depressions despite poor baseline and listed "Acute [place]" on the strip. EKG done in the department expeditiously without ST changes. Meds: Per chart All: NKDA PMH: As above PSH: Per chart Past History - Travel History Traveled outside of the country in the last 30 days: No Close contact w/someone who was outside of country & ill: No - Medical History Allergies/Adverse Reactions: Allergies Allergy/AdvReac Type Severity Reaction Status Date / Time No Known Allergies Allergy Verified 11/29/19 20:35 Home Medications: Ambulatory Orders Aspirin [ASA -] 81 mg PO DAILY #0 tab.chew 04/22/12 Albuterol Sulfate Inhaler - [Ventolin HFA Inhaler -] 2 inh PO Q6H PRN 08/20/15 Budesonide/Formeterol Fumarate [SYMBICORT 80/4.5mcg -] 1 inh PO BID 08/20/15 Diltiazem Cd [Cardizem Cd -] 1 cap PO DAILY 04/22/17 Levothyroxine [Synthroid -] 137.5 mcg PO DAILY 04/22/17 Methadone [Dolophine -] 130 mg PO DAILY 04/22/17 Omeprazole 40 mg PO DAILY 04/22/17 Valacyclovir HCl [Valtrex -] 500 mg PO DAILY 04/22/17 Venlafaxine HCl ER [Effexor Xr -] 75 mg PO DAILY 04/22/17 Furosemide [Lasix -] 40 mg PO DAILY PRN 05/08/17 Multivitamin [Multiple Vitamins] 1 each PO DAILY 05/08/17 Magnesium Oxide [Magnesium] 400 mg PO DAILY 08/01/17 Naloxegol Oxalate [Movantik] 25 mg PO WEEKLY 08/01/17 Potassium Chloride [K-Tab ER] 20 meq PO DAILY 08/01/17 Prochlorperazine Maleate [Compazine] 10 mg PO AC PRN 08/01/17 Ibuprofen [Motrin -] 800 mg PO DAILY PRN 09/14/17 Losartan Potassium [Cozaar] 100 mg PO DAILY 09/14/17 traZODone HCL [Trazodone HCl] 300 mg PO HS 08/06/18 Docusate Sodium [Colace -] 100 mg PO TID #90 capsule 01/14/19 Ergocalciferol (Vitamin D2) [Vitamin D2] 50,000 unit PO Q7D #4 capsule 01/14/19 Atorvastatin Ca [Lipitor] 80 mg PO HS 06/02/19 Sennosides [Senna] 2 tab PO DAILY #60 tablet 08/13/19 Diclofenac Sodium [Voltaren] 2 gm TP TID PRN #3 tube 08/18/19 Gabapentin [Neurontin -] 100 mg PO Q8H 10/28/19 Meloxicam [Mobic] 7.5 mg PO BID 10/28/19 Naloxone HCl [Narcan] 4 mg NS ASDIR PRN #1 spray 10/28/19 Oxycodone HCl/Acetaminophen [Endocet 5-325 Tablet] 1 each PO BID PRN #14 tablet MDD 2 10/28/19 Tizanidine HCl 2 mg PO TID PRN #90 tablet 10/28/19 Gabapentin 100 mg PO BID #60 capsule 11/03/19 Oxycodone HCl/Acetaminophen [Endocet 5-325 Tablet] 1 each PO BID PRN #14 tablet MDD 2 11/03/19 Tizanidine HCl 2 mg PO TID PRN #90 tablet 11/03/19 Anemia: No Asthma: No Cancer: Yes (lung 2009, removed 03/27 rul, no chemo) Cardiac Disorders: Yes (CArdiac stent x 7 (03/31/17, IN , IN Mar 2019) CVA: No COPD: Yes CHF: No Dementia: No Diabetes: No 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) Disorders: No HTN: Yes Hypercholesterolemia: No Liver Disease: Yes (hep c treated) Psychiatric Problems: Yes (ANXIETY.Methadone program x 30 years) Seizures: No Thyroid Disease: Yes (on meds) Lung CA: Yes (ca, and emphazema) - Surgical History Abdominal Surgery: No Appendectomy: No Cardiac Surgery: Yes (seven stents, angiogram 03/2017 and March 2019) Cholecystectomy: No Lung Surgery: Yes (partial right lobectomy for ca, no chemo or radiation) Neurologic Surgery: No Orthopedic Surgery: Yes (right hip replacement 2013; right wrist surgery for fracture x 3 2016,2018) - Reproductive History Is Patient Now?: No - Immunization History Immunization Up to Date: Yes - Psycho-Social/Smoking History Smoking Status: Yes Smoking History: Never smoked Have you smoked in the past 12 months: No Number of Cigarettes Smoked Daily: 1 If you are a former smoker, when did you quit?: 2009 Information on smoking cessation initiated: No 'Breaking Loose' booklet given: 12/06/12 - Substance Abuse Hx (Audit-C & DAST Scrn) How often the patient has a drink containing alcohol: Never Score: In Men: 4 or > Positive; In Women: 3 or > Positive: 0 Screen Result (Pos requires Nsg. Audit-10AR): Negative In the last yr the pt used illegal drug/Rx for NonMed reason: No Score: Yes response is considered Positive: 0 Screen Result (Positive result requires Nsg. DAST-10): Negative Review of Systems - Review of Systems Able to Perform ROS?: Yes Is the patient limited Estonian proficient: Yes Constitutional: Yes: Malaise. No: Chills, Fever, Weakness HEENTM: No: Recent change in vision, Nose Congestion, Throat Pain Respiratory: No: Cough, Shortness of Breath Cardiac (ROS): No: Chest Pain, Edema, Irregular Heart Rate, Lightheadedness, Palpitations, Syncope, Chest Tightness ABD/GI: Yes: Nausea. No: Constipated, Diarrhea, Poor Appetite, Poor Fluid Intake, Vomiting : No: Burning, Dysuria, Frequency Musculoskeletal: No: Back Pain, Muscle Pain, Muscle Weakness, Neck Pain Integumentary: No: Bruising, Pruritus, Rash Neurological: Yes: Headache. No: Numbness, Tingling, Weakness Psychiatric: No: Stressors, Change in Appetite Endocrine: No: Increased Thirst, Increased Urine, Change in Weight Hematologic/Lymphatic: Yes: Easy Bleeding (on 2x anti-plt medications). No: Anemia, Blood Clots All Other Systems: Reviewed and Negative *Physical Exam - Vital Signs Last Vital Signs Temp Pulse Resp BP Pulse Ox 98.9 F 59 L 17 211/91 H 98 11/29/19 20:33 11/29/19 20:33 11/29/19 20:33 11/29/19 20:33 11/29/19 20:33 - Physical Exam 11/29/19 21:12 Vitals reviewed, notable for significant hypertension on arrival, normal HR, afebrile GEN: Well appearing, appears stated age, NAD, comfortable. AAOx3. HEENT: NCAT, EOMI, PERRL. Sclera anicteric, non-injected. No facial asymmetry. Moist mucous membranes. Normal voice. Trachea midline. CV: RRR, S1/S2, no murmurs / rubs / gallops appreciated. LUNG: CTABL, normal work of breathing. No wheezes, rales, rhonchi. No cough. Speaking full sentences. GI: Soft, NTND, +BS, no guarding, no rebound. No masses. EXTREMITIES: 2+ distal pulses. No clubbing / cyanosis / edema. Excoriations on bilateral LE, L>R reportedly from cats. SKIN: Warm, dry, no rashes appreciated, non-jaundiced. PSYCH: Normal mood and affect. Cooperative and appropriate. NEURO: CN 2-12 intact. Moving all extremities well. Normal strength and sensation throughout. ED Treatment Course - LABORATORY CBC & Chemistry Diagram: 11/29/19 20:45 11/29/19 20:45 - Medications Given in the ED: ED Medications Discontinued Medications Generic Name Dose Route Start Last Admin Trade Name Alesia PRN Reason Stop Dose Admin Aspirin 162 mg 11/29/19 20:36 11/29/19 20:41 Asa - PO 11/29/19 20:37 162 mg ONCE ONE Administration Medical Decision Making - Medical Decision Making 11/29/19 21:10 69 yo F pmh CAD, [place] 2001 and 04/06/2019 (s/p 7 sents, last placed 2010, ballooned 03/2019), COVID positive 06/2019, Neuropathy, COPD (on 4L home O2), hep c in 2006 s/p treatment, lung cancer 2009 40% R lung removed, hypothyroidism, achalasia 05/2014 poem procedure, laminectomy and fusion in 2013, arthritis and scoliosis stage 3, stenosis with herniated disks presenting with hypertension, nausea, "mild frontal headache." Concerning for EMS activation for "chest discomfort" w tih associated nausea extreme HTN, multiple significant comorbidities and extensive cardiac history. Arrived hypertensive, with resolution following ofirmev for headache, exam otherwise largely unremarkable. Concerning for uncontrolled hypertension, r/o ACS in patient with significant history, elect rolyte abnormality, dysrhythmia. - EKbpm, NSR, normal axis, normal intervals, QTc 467, ?LVH, no clear ST changes, EKG unchanged from 08/20/19 prior - Aspirin 162 chewable - Ofirmev 1g 11/29/19 21:23 - Patient BP improved to 184/93 - Headache has resolved, patient is currently symptom free Dispo: Tele Obs Discharge - Discharge Information Problems reviewed: Yes Clinical Impression/Diagnosis: Paroxysmal atrial fibrillation, CAD - multiple stents, Status post total hip replacement, right HTN (hypertension) Qualifiers: Hypertension type: essential hypertension Qualified Code(s): I10 - Essential (primary) hypertension Condition: Guarded - Follow up/Referral - Patient Discharge Instructions - Post Discharge Activity
[2019-11-29 21:04] LABS: BASO % 0.7 % (0-2.0); EOS % 2.8 % (0-4.5); HEMATOCRIT 33.9 % (32.4-45.2); HEMOGLOBIN 11.1 GM/dL (10.7-15.3); LYMPH % 17.1 % (8-40); MCH 31.2 pg (25.7-33.7); MCHC 32.8 g/dl (32.0-36.0); MEAN CELL VOLUME 95.2 fl (80-96); MEAN PLT VOLUME 8.4 fl (7.5-11.1); MONO % 5.8 % (3.8-10.2); NEUT % 73.6 % (42.8-82.8); PLATELET COUNT 218 K/MM3 (134-434); RBC 3.56 M/mm3 (3.60-5.2); RDW 16.3 % (11.6-15.6); WHITE BLOOD COUNT 7.7 K/mm3 (4.0-10.0)
[2019-11-29] MEDS ORDERED: ACETAMINOPHEN INJECTION 100 ML IVPB ONE (21:06)
[2019-11-29 21:08] LABS: INR 0.95 (0.83-1.09); PROTHROMBIN TIME (PATIENT) 11.2 SEC (9.7-13.0)
[2019-11-29 21:11] LABS: ACTIVATED PTT 29.5 SECONDS (25.2-36.5)
[2019-11-29 21:52] LABS: ALBUMIN 3.5 g/dl (3.4-5.0); ALK PHOS 65 U/L (45-117); ANION GAP 3 MMOL/L (8-16); BILIRUBIN,TOTAL 0.2 mg/dL (0.2-1); BLOOD UREA NITROGEN 13.2 mg/dL (7-18); CALCIUM 8.3 mg/dL (8.5-10.1); CHLORIDE 110 mmol/L (98-107); CO2 28 mmol/L (21-32); CREATININE 0.9 mg/dL (0.55-1.3); GLUCOSE,RANDOM 90 mg/dL (74-106); MAGNESIUM 2.2 mg/dL (1.8-2.4); N-TERMINAL BNP 1398.8 pg/ml (5-125); SGOT/AST 22 U/L (15-37); SGPT/ALT 22 U/L (13-61); SODIUM 141 mmol/L (136-145)
--- NOTE | 2019-11-29 22:31 | PN ---
Teaching Attending Note Name of Resident: Denny Seevrino ATTENDING PHYSICIAN STATEMENT I saw and evaluated the patient. I reviewed the resident's note and discussed the case with the resident. I agree with the resident's findings and plan as documented. SUBJECTIVE: 69yoF with history of CAD s/p PR 2001 and March 2019, COPD on home oxygen, hep atitis C s/p treatment, lung cancer s/p right lobectomy, hypothyroidism, chronic back pain OBJECTIVE: ASSESSMENT AND PLAN:
[2019-11-29] MEDS ORDERED: MORPHINE SULFATE 2 MG/ML VIAL IVPUSH STA (23:20)
--- NOTE | 2019-11-29 23:44 | HP ---
CHIEF COMPLAINT: malasie, nausea, chest pain and headache PCP: Dr. Jessica Mena Cardiology: Dr. Rivera Pulmonary: Dr. George Vascular: Dr. Wooten Pain: Dr. Tasha Mckeon GI: Dr. Velasco History of Present Illness: 69 year old female with a past medical history of CAD, [place] 2001 and 03/2019 (s/p 7 sents, last placed 2010, ballooned 03/2019 at [facility]), COVID positive 06/2019, neuropathy, COPD (on 4L home O2), Hepatitis C in 2006 s/p lung cancer 2009 with 40% right lung removed, hypothyroidism, achalasia 05/2014 poem procedure, laminectomy and fusion in 2013, arthritis, scoliosis ,and stenosis with herniated disks who presented with hypertensive urgency. She reported symptoms of nausea, chest pain ,malaise and headache. Patient was feeling in her usual state of health when she developed nausea, general malaise this evening and found her BP to be over 200/90s and presented to the ED. She reported she took her daily aspirin 81 and plavix earlier. She reported she recently was discontinued from cardizem and now was taking lopressor 25mg BID which she also took earlier today. At present she is reporting a headache, denies vision changes, nausea, vomiting, chest pain, SOB, orthopnea, diaphoresis,weakness, numbness / tingling. As reported EMS called in for chest pain, "something pre- excitation" and denied any STEMI. Arrived to the ER with three strips, one of which appeared to have inferior lead depressions despite poor baseline and listed "Acute [place]" on the strip. EKG done in the department which showed a normal sinus rhythm without acute ST changes. ER course notable for: hypertensive urgency and bradycardia, she received IV Ofirmev which improved her blood pressure and headache for a brief period but then found to be hypertensive again and symptomatic with a headache, she received a dose of IV morphine 2 mg once. She was found to have a normal troponin. EKG with a normal sinus rhythm, no acute ST elevations or T wave inversions. BNP was elevated at 1398. Recent Travel: denies PAST MEDICAL HISTORY: CAD, RI 2001 and 03/2019 (s/p 7 sents, last placed 2010, ballooned 03/2019 at [facility]) COVID positive 06/2019 Neuropathy COPD (on 4L home O2) Hepatitis C in 2006 s/p treatment Lung cancer 2009 40% right lung removed Hypothyroidism Achalasia 05/2014 poem procedure Laminectomy and fusion in 2013 Arthritis Scoliosis Stenosis with herniated disks PAST SURGICAL HISTORY: Right lung resection 2009 Social History: Smoking:+ smoker, smokes 1-2 cigarettes /day ,smoked for 45 years on/off Alcohol:denies Drugs: hx of drug abuse Family History: Mother had emphysema, at age 76 Father had RI, small strokes, at age 63 Allergies No Known Allergies Allergy (Verified 11/29/19 20:35) HOME MEDICATIONS: Home Medications Medication Instructions Recorded Aspirin [ASA -] 81 mg PO DAILY #0 tab.chew 04/22/12 Albuterol Sulfate Inhaler - 2 inh PO Q6H PRN 08/20/15 [Ventolin HFA Inhaler -] Budesonide/Formeterol Fumarate 1 inh PO BID 08/20/15 [SYMBICORT 80/4.5mcg -] Diltiazem Cd [Cardizem Cd -] 1 cap PO DAILY 04/22/17 Levothyroxine [Synthroid -] 137.5 mcg PO DAILY 04/22/17 Methadone [Dolophine -] 130 mg PO DAILY 04/22/17 Omeprazole 40 mg PO DAILY 04/22/17 Valacyclovir HCl [Valtrex -] 500 mg PO DAILY 04/22/17 Venlafaxine HCl ER [Effexor Xr -] 75 mg PO DAILY 04/22/17 Furosemide [Lasix -] 40 mg PO DAILY PRN 05/08/17 Multivitamin [Multiple Vitamins] 1 each PO DAILY 05/08/17 Magnesium Oxide [Magnesium] 400 mg PO DAILY 08/01/17 Naloxegol Oxalate [Movantik] 25 mg PO WEEKLY 08/01/17 Potassium Chloride [K-Tab ER] 20 meq PO DAILY 08/01/17 Prochlorperazine Maleate 10 mg PO AC PRN 08/01/17 [Compazine] Ibuprofen [Motrin -] 800 mg PO DAILY PRN 09/14/17 Losartan Potassium [Cozaar] 100 mg PO DAILY 09/14/17 traZODone HCL [Trazodone HCl] 300 mg PO HS 08/06/18 Docusate Sodium [Colace -] 100 mg PO TID #90 capsule 01/14/19 Ergocalciferol (Vitamin D2) 50,000 unit PO Q7D #4 capsule 01/14/19 [Vitamin D2] Atorvastatin Ca [Lipitor] 80 mg PO HS 06/02/19 Sennosides [Senna] 2 tab PO DAILY #60 tablet 08/13/19 Diclofenac Sodium [Voltaren] 2 gm TP TID PRN #3 tube 08/18/19 Gabapentin [Neurontin -] 100 mg PO Q8H 10/28/19 Meloxicam [Mobic] 7.5 mg PO BID 10/28/19 Naloxone HCl [Narcan] 4 mg NS ASDIR PRN #1 spray 10/28/19 Oxycodone HCl/Acetaminophen 1 each PO BID PRN #14 tablet MDD 2 10/28/19 [Endocet 5-325 Tablet] Tizanidine HCl 2 mg PO TID PRN #90 tablet 10/28/19 Gabapentin 100 mg PO BID #60 capsule 11/03/19 Oxycodone HCl/Acetaminophen 1 each PO BID PRN #14 tablet MDD 2 11/03/19 [Endocet 5-325 Tablet] Tizanidine HCl 2 mg PO TID PRN #90 tablet 11/03/19 REVIEW OF SYSTEMS CONSTITUTIONAL: Absent: fever, chills, diaphoresis, generalized weakness, malaise, loss of appetite, weight change HEENT: Absent: rhinorrhea, nasal congestion, throat pain, throat swelling, difficulty swallowing, mouth swelling, ear pain, eye pain, visual changes CARDIOVASCULAR: Absent: chest pain, syncope, palpitations, irregular heart rate, lightheadedness, peripheral edema RESPIRATORY: Absent: cough, shortness of breath, dyspnea with exertion, orthopnea, wheezing, stridor, hemoptysis GASTROINTESTINAL: Absent: abdominal pain, abdominal distension, nausea, vomiting, diarrhea, constipation, melena, hematochezia GENITOURINARY: Absent: dysuria, frequency, urgency, hesitancy, hematuria, flank pain, genital pain MUSCULOSKELETAL: Absent: myalgia, arthralgia, joint swelling, back pain, neck pain SKIN: Absent: rash, itching, pallor, BLE with redness and dry scabs present HEMATOLOGIC/IMMUNOLOGIC: Absent: easy bleeding, easy bruising, lymphadenopathy, frequent infections ENDOCRINE: Absent: unexplained weight gain, unexplained weight loss, heat intolerance, cold intolerance NEUROLOGIC: Absent: headache, focal weakness or paresthesias, dizziness, unsteady gait, seizure, mental status changes, bladder or bowel incontinence PSYCHIATRIC: Absent: anxiety, depression, suicidal or homicidal ideation, hallucinations. PHYSICAL EXAMINATION Vital Signs - 24 hr 11/29/19 11/29/19 20:33 20:53 Temperature 98.9 F Pulse Rate 59 L Pulse Rate [ 58 L Radial] Respiratory 17 Rate Blood Pressure 211/91 H Blood Pressure 184/93 H [Left Arm] O2 Sat by Pulse 98 Oximetry (%) General no acute distress Vital signs reviewed blood pressure and heart rate noted Neck o JVD Lungs diminished BS on right nonlabored breathing effort no use of accessory muscles Heart s1s2 rate regular and bradycardic Abdomen soft nontender nondistended Extremities warm to palpation redness present bilaterally Skin nail beds and lips pink Mood calm Laboratory Results - last 24 hr 11/29/19 11/29/19 11/29/19 20:45 20:45 20:45 WBC 7.7 RBC 3.56 L Hgb 11.1 Hct 33.9 MCV 95.2 MCH 31.2 MCHC 32.8 RDW 16.3 H Plt Count 218 MPV 8.4 D Absolute Neuts (auto) 5.7 Neutrophils % 73.6 D Lymphocytes % 17.1 D Monocytes % 5.8 Eosinophils % 2.8 Basophils % 0.7 Nucleated RBC % 0 PT with INR 11.20 INR 0.95 PTT (Actin FS) 29.5 Sodium 141 Potassium 4.0 Chloride 110 H Carbon Dioxide 28 Anion Gap 3 L BUN 13.2 Creatinine 0.9 Est GFR (CKD-EPI)AfAm 76.14 Est GFR (CKD-EPI)NonAf 65.70 Random Glucose 90 Lactic Acid Calcium 8.3 L Magnesium 2.2 Total Bilirubin 0.2 AST 22 ALT 22 Alkaline Phosphatase 65 Creatine Kinase 133 Troponin I < 0.02 B-Natriuretic Peptide 1398.8 H Total Protein 7.0 Albumin 3.5 11/29/19 20:45 WBC RBC Hgb Hct MCV MCH MCHC RDW Plt Count MPV Absolute Neuts (auto) Neutrophils % Lymphocytes % Monocytes % Eosinophils % Basophils % Nucleated RBC % PT with INR INR PTT (Actin FS) Sodium Potassium Chloride Carbon Dioxide Anion Gap BUN Creatinine Est GFR (CKD-EPI)AfAm Est GFR (CKD-EPI)NonAf Random Glucose Lactic Acid 1.1 Calcium Magnesium Total Bilirubin AST ALT Alkaline Phosphatase Creatine Kinase Troponin I B-Natriuretic Peptide Total Protein Albumin ASSESSMENT/PLAN: In summary Mrs. Quintana is a 69 year old female with a past medical history of CAD, [place] 2001 and 03/2019 (s/p 7 sents, last placed 2010, ballooned 03/2019 at [facility]), COVID positive 06/2019, neuropathy, COPD (on 4L home O2), Hepatitis C in 2006 s/p treatment, lung cancer 2009 40% right lung removed, hypothyroidism, achalasia 05/2014 poem procedure, laminectomy and fusion in 2013, arthritis and scoliosis stage 3, stenosis with herniated disks who presented with chest pain, headache and nausea in the setting of hypertensive urgency. She is being admitted to telemetry for further cardiac evaluation and management. 1. hypertensive urgency etiology unclear, BNP elevated, cardizem recently was discontinued and was taking metoprolol tartrate 25 mg twice daily(has bradycardia) symptomatic with chest pain, headache and nausea,chest pain likely secondary to elevated BP and not ACS c/w lopressor 25 mg twice daily with heart rate hold parameters c/w pain meds and antiemetics echocardiogram ordered to evaluate EF and exclude hypertensive cardiomyopathy Cardiology - Dr. Marcos consulted 2.hx CAD currently asymptomatic of chest pain troponin normal continue to trend troponins EKG with no acute ischemic findings c/w aspirin and plavix 3 hypothyroidism c/w synthroid 4. rule out covid follow up on covid test maintain oxygen saturation >90% maintain strict contact and droplet precautions 5. asthma no acute exacerbation c/w nebulizers 6. scoliosis, stenosis and disc herniations c/w oxycodone and gabapentin 7. leg swelling/redness/pain check venous US of BLE dvt prophylaxis lovenox 40 mg daily FEN no IVF indicated BMP daily and replete electrolytes as needed low sodium diet Family Medical History Family History: As Documented Visit type - Medication Review Med list reviewed for High Risk Meds patients 65 and older: Yes - Emergency Visit Emergency Visit: Yes ED Registration Date: 11/29/19 Care time: The patient presented to the Emergency Department on the above date and was hospitalized for further evaluation of their emergent condition. - New Patient This patient is new to me today: Yes Date on this admission: 11/30/19 - Critical Care Critical Care patient: No
[2019-11-29] MEDS ORDERED: MORPHINE SULFATE 2 MG/ML VIAL ONE (23:55)
[2019-11-30] MEDS ORDERED: NITROGLYCERIN 2% OINTMENT - 1GM PACKET TD STA (00:54)
[2019-11-30] MEDS ORDERED: NITROGLYCERIN 2% OINTMENT - 1GM PACKET TD ONE (02:11)
[2019-11-30] MEDS ORDERED: ALBUTEROL SO4 HFA INHALER IH PRN (04:28)
[2019-11-30] MEDS ORDERED: FUROSEMIDE 40 MG TABLET (FP) PO PRN (04:28)
[2019-11-30] MEDS ORDERED: ACETAMINOPHEN 1000 MG/100 ML VIAL (NON FORMULARY) IVPB ONE (05:57)
[2019-11-30] MEDS ORDERED: LOSARTAN POTASSIUM 50 MG TABLET (FP) PO ONE (05:58)
[2019-11-30] MEDS ORDERED: DOCUSATE SODIUM 100 MG CAPSULE (FP) PO ONE ×2 (06:19→14:34)
[2019-11-30] MEDS: DOCUSATE SODIUM 100 MG CAPSULE (FP) PO SCH ×3 (06:30→21:39)
[2019-11-30] MEDS: PANTOPRAZOLE 40 MG TABLET PO SCH (06:31)
[2019-11-30] MEDS ORDERED: PT OWN MED DRAWER 7, Y5N ONE (09:11)
[2019-11-30] MEDS ORDERED: MULTIVITAMINS (DAILY MVI) TABLET (FP) ONE (09:15)
[2019-11-30] MEDS ORDERED: METOPROLOL TARTRATE 25 MG TABLET (FP) ONE (09:16)
[2019-11-30] MEDS ORDERED: MAGNESIUM OXIDE 400 MG TABLET (FP) ONE (09:16)
[2019-11-30] MEDS ORDERED: ASPIRIN 81 MG CHEWABLE TABLETS ONE (09:16)
[2019-11-30] MEDS ORDERED: CLOPIDOGREL BISULFATE 75 MG TABLET (FP) ONE (09:16)
[2019-11-30] MEDS ORDERED: GABAPENTIN 100 MG CAPSULE ONE (09:16)
[2019-11-30] MEDS ORDERED: ENOXAPARIN NA (PORCINE) 40 MG/0.4 ML DISP.SYRIN SQ ONE (09:17)
[2019-11-30] MEDS ORDERED: VENLAFAXINE HCL 75 MG TABLET ONE (09:17)
[2019-11-30] MEDS: METOPROLOL TARTRATE 25 MG TABLET (FP) PO SCH ×2 (09:41→21:36)
[2019-11-30] MEDS: LEVOTHYROXINE 112 MCG, LEVOTHYROXINE 25 MCG PO SCH (09:41)
[2019-11-30] MEDS: ENOXAPARIN NA (PORCINE) 40 MG/0.4 ML DISP.SYRIN SQ SCH (09:41)
[2019-11-30] MEDS: MAGNESIUM OXIDE 400 MG TABLET (FP) PO SCH (09:41)
[2019-11-30] MEDS: ASPIRIN 81 MG CHEWABLE TABLETS PO SCH (09:41)
[2019-11-30] MEDS: VENLAFAXINE HCL 75 MG E.R. CAPSULES PO SCH (09:41)
[2019-11-30] MEDS: CLOPIDOGREL BISULFATE 75 MG TABLET (FP) PO SCH (09:42)
[2019-11-30] MEDS: MULTIVITAMINS (DAILY MVI) TABLET (FP) PO SCH (09:42)
[2019-11-30] MEDS ORDERED: PATIENT'S OWN MEDICATION (NON-FORMULARY) (Magnesium Oxide [Magnesium] 400 MG) PO SCH (10:00)
[2019-11-30] MEDS ORDERED: GABAPENTIN 100 MG CAPSULE PO SCH (10:00)
[2019-11-30] MEDS ORDERED: LOSARTAN POTASSIUM 50 MG TABLET (FP) PO SCH (10:00)
[2019-11-30] MEDS ORDERED: PATIENT'S OWN MEDICATION (NON-FORMULARY) (Omeprazole [Omeprazole] 40 MG) PO SCH (10:00)
[2019-11-30] MEDS ORDERED: METHADONE HCL 10 MG TABLET PO SCH (10:00)
[2019-11-30] MEDS ORDERED: LEVOTHYROXINE NA 125 MCG TABLET (FP) PO SCH (10:00)
[2019-11-30] MEDS: BUDESONIDE/FORMETEROL FUMARATE 80/4.5 mcg INHALER IH SCH ×2 (10:04→22:20)
--- NOTE | 2019-11-30 10:25 | PN ---
Progress Note (short form) - Note Progress Note: pt examined in ER she c/o burning sensation in legs, headaches, feeling very anxious events noted no chest pain no sob Vital Signs - 24 hr 11/29/19 11/29/19 11/30/19 20:33 20:53 02:24 Temperature 98.9 F 98.2 F Pulse Rate 59 L Pulse Rate [ 58 L 60 Radial] Respiratory 17 14 Rate Blood Pressure 211/91 H Blood Pressure 184/93 H 199/95 H [Left Arm] O2 Sat by Pulse 98 100 Oximetry (%) 11/30/19 11/30/19 11/30/19 07:09 07:59 10:45 Temperature 98.5 F 97.6 F 97.8 F Pulse Rate Pulse Rate [ 54 L 65 73 Radial] Respiratory 12 16 16 Rate Blood Pressure Blood Pressure 172/85 H 186/76 H 196/98 H [Left Arm] O2 Sat by Pulse 98 100 2 L Oximetry (%) 11/30/19 11:27 Temperature 98 F Pulse Rate Pulse Rate [ 59 L Radial] Respiratory 16 Rate Blood Pressure Blood Pressure 200/98 H [Left Arm] O2 Sat by Pulse 99 Oximetry (%) Current Medications Generic Name Dose Route Start Last Admin Trade Name Freq PRN Reason Stop Dose Admin Albuterol Sulfate 2 puff 11/30/19 04:28 Ventolin Hfa Inhaler - IH Q6H PRN SHORT OF BREATH/WHEEZING Aspirin 81 mg 11/30/19 10:00 11/30/19 09:41 Asa - PO 81 mg DAILY EDUARD Administration Atorvastatin Calcium 80 mg 11/30/19 22:00 Lipitor - PO HS EDUARD Budesonide/Formoterol Fumarate 1 puff 11/30/19 10:00 11/30/19 10:04 Symbicort 80/4.5mcg - IH Not Given BID EDUARD Clonazepam 1 mg 11/30/19 12:55 Klonopin - PO 11/30/19 12:56 ONCE ONE Clonazepam 1 mg 11/30/19 12:55 Klonopin - PO Q8H PRN ANXIETY Clopidogrel Bisulfate 75 mg 11/30/19 10:00 11/30/19 09:42 Plavix - PO 75 mg DAILY EDUARD Administration Docusate Sodium 100 mg 11/30/19 06:00 11/30/19 06:30 Colace - PO 100 mg TID EDUARD Administration Enoxaparin Sodium 40 mg 11/30/19 10:00 11/30/19 09:41 Lovenox - SQ Not Given DAILY [facility] Ergocalciferol 50,000 unit 11/30/19 04:30 Drisdol - PO Q7D EDUARD Gabapentin 100 mg 11/30/19 10:00 11/30/19 09:41 Neurontin - PO 100 mg BID EDUARD Administration Levothyroxine Sodium 112 mcg/ 137 mcg 11/30/19 07:00 11/30/19 09:41 Levothyroxine Sodium 25 mcg PO 137 mcg DAILY@0700 EDUARD Administration Losartan Potassium 100 mg 12/01/19 10:00 Cozaar - PO DAILY EDUARD Magnesium Oxide 400 mg 11/30/19 10:00 11/30/19 09:41 Mag-Ox - PO 400 mg DAILY [facility] Administration Methadone HCl 130 mg 11/30/19 10:00 Dolophine - PO DAILY [facility] Metoprolol Tartrate 25 mg 11/30/19 10:00 11/30/19 09:41 Lopressor - PO 25 mg BID EDUARD Administration Multivitamins/Minerals/Vitamin C 1 tab 11/30/19 10:00 11/30/19 09:42 Tab-A-Vit - PO 1 tab DAILY [facility] Administration Pantoprazole Sodium 40 mg 11/30/19 07:00 11/30/19 06:31 Protonix - PO 40 mg ACBK EDUARD Administration Senna 2 tab 11/30/19 22:00 Senna - PO HS EDUARD Trazodone HCl 300 mg 11/30/19 22:00 Desyrel - PO HS EDUARD Venlafaxine HCl 75 mg 11/30/19 10:00 11/30/19 09:41 Effexor Xr - PO 75 mg DAILY EDUARD Administration Laboratory Results - last 24 hr 11/29/19 11/29/19 11/29/19 20:45 20:45 20:45 WBC 7.7 RBC 3.56 L Hgb 11.1 Hct 33.9 MCV 95.2 MCH 31.2 MCHC 32.8 RDW 16.3 H Plt Count 218 MPV 8.4 D Absolute Neuts (auto) 5.7 Neutrophils % 73.6 D Lymphocytes % 17.1 D Monocytes % 5.8 Eosinophils % 2.8 Basophils % 0.7 Nucleated RBC % 0 PT with INR 11.20 INR 0.95 PTT (Actin FS) 29.5 Sodium 141 Potassium 4.0 Chloride 110 H Carbon Dioxide 28 Anion Gap 3 L BUN 13.2 Creatinine 0.9 Est GFR (CKD-EPI)AfAm 76.14 Est GFR (CKD-EPI)NonAf 65.70 POC Glucometer Random Glucose 90 Lactic Acid Calcium 8.3 L Magnesium 2.2 Total Bilirubin 0.2 AST 22 ALT 22 Alkaline Phosphatase 65 Creatine Kinase 133 Creatine Kinase Index CK-MB (CK-2) Troponin I < 0.02 B-Natriuretic Peptide 1398.8 H Total Protein 7.0 Albumin 3.5 11/29/19 11/30/19 11/30/19 20:45 10:15 10:15 WBC 9.0 RBC 3.76 Hgb 11.5 Hct 36.1 MCV 96.0 MCH 30.6 MCHC 31.8 L RDW 15.8 H Plt Count 219 MPV 8.4 Absolute Neuts (auto) Neutrophils % Lymphocytes % Monocytes % Eosinophils % Basophils % Nucleated RBC % PT with INR INR PTT (Actin FS) Sodium 142 Potassium 4.0 Chloride 106 Carbon Dioxide 29 Anion Gap 8 BUN 10.4 Creatinine 0.8 Est GFR (CKD-EPI)AfAm 87.80 Est GFR (CKD-EPI)NonAf 75.75 POC Glucometer Random Glucose 71 L Lactic Acid 1.1 Calcium 8.8 Magnesium 2.4 Total Bilirubin AST ALT Alkaline Phosphatase Creatine Kinase 176 Creatine Kinase Index 3.4 CK-MB (CK-2) 6.0 H Troponin I < 0.02 B-Natriuretic Peptide Total Protein Albumin 11/30/19 11:01 WBC RBC Hgb Hct MCV MCH MCHC RDW Plt Count MPV Absolute Neuts (auto) Neutrophils % Lymphocytes % Monocytes % Eosinophils % Basophils % Nucleated RBC % PT with INR INR PTT (Actin FS) Sodium Potassium Chloride Carbon Dioxide Anion Gap BUN Creatinine Est GFR (CKD-EPI)AfAm Est GFR (CKD-EPI)NonAf POC Glucometer 78 Random Glucose Lactic Acid Calcium Magnesium Total Bilirubin AST ALT Alkaline Phosphatase Creatine Kinase Creatine Kinase Index CK-MB (CK-2) Troponin I B-Natriuretic Peptide Total Protein Albumin S1 S2 RRR Lungs clear Abd - soft, NT trace edema chronic venous changes PLAN HTN Urgency Anxiety Methadone dependence PVD -- spoke with Cardiology -- IV lasix given -- ad Klonopin to help her anxiety -- continue with Methadone -- cardiac enzymes negative --pt has angiogram scheduled later this week with DR Wooten Problem List - Problems (1) HTN (hypertension) Code(s): I10 - ESSENTIAL (PRIMARY) HYPERTENSION Qualifiers: Hypertension type: essential hypertension Qualified Code(s): I10 - Essential (primary) hypertension (3) COPD (chronic obstructive pulmonary disease) Code(s): J44.9 - CHRONIC OBSTRUCTIVE PULMONARY DISEASE, UNSPECIFIED Qualifiers: COPD type: chronic bronchitis (4) PVD (peripheral vascular disease) Code(s): I73.9 - PERIPHERAL VASCULAR DISEASE, UNSPECIFIED
--- NOTE | 2019-11-30 10:35 | ECHO ---
Version: 1 Name: RIGO BRITT Exam: Adult Echocardiogram Study Date: 11/30/2019, 8:32 AM Age: 69 Years MMode/2D Measurements & Calculations IVSd: 1.24 cm LVIDs: 3.8 cm LVIDd: 4.9 cm LVPWd: 1.37 cm ACS: 2.22 cm Ao root diam: 2.7 cm LVOT diam: 1.91 cm LA dimension: 4.2 cm Doppler Measurements & Calculations MV E max neri: 70.6 cm/sec MV V2 max: 95.3 cm/sec MV A max neri: 78.0 cm/sec MV max P.6 mmHg MV mean P.46 mmHg Med E/e': 15.3 MV E/A: 0.91 Med Peak E' Neri: 4.6 cm/sec Lat E/e': 7.5 Lat Peak E' Neri: 9.4 cm/sec MR max P.0 mmHg Ao max P.6 mmHg Ao V2 max: 177.2 cm/sec TR max neri: 238.1 cm/sec TR max P.7 mmHg Procedure The study was technically difficult with many images being suboptimal in quality. Left Ventricle There is moderate concentric left ventricular hypertrophy. Ejection Fraction = 45%. Left ventricular systolic function is mildly reduced. Grade I diastolic dysfunction, (abnormal relaxation pattern). There is i nferior wall akinesis. Right Ventricle The right ventricle is normal in size and function. Atria The left atrium is mildly dilated. Right atrial size is normal. Mitral Valve The mitral valve is normal in structure and function. There is moderate mitral regurgitation. Tricuspid Valve The tricuspid valve is normal in structure and function. There is trace tricuspid regurgitation. Aortic Valve There is mild aortic sclerosis.;. No hemodynamically significant valvular aortic stenosis. Pulmonic Valve The pulmonic valve is not well visualized. Great Vessels The aortic root is normal size. Pericardium/Pleura Small pericardial effusion (<1cm). There are echocardiographic indications for cardiac tamponade. Summary Statements There is moderate concentric left ventricular hypertrophy. Left ventricular systolic function is mildly reduced. There is inferior wall akinesis. The right ventricle is normal in size and function. There is moderate mitral regurgitation. Jerry Tavera 11/30/2019, 10:34 AM Ordering Physician: Sylvester Lane Referring Physician: SYLVESTER LANE Performed By: Tatiana Yin
[2019-11-30 10:55] LABS: HEMATOCRIT 36.1 % (32.4-45.2); HEMOGLOBIN 11.5 GM/dL (10.7-15.3); MCH 30.6 pg (25.7-33.7); MCHC 31.8 g/dl (32.0-36.0); MEAN PLT VOLUME 8.4 fl (7.5-11.1); PLATELET COUNT 219 K/MM3 (134-434); RBC 3.76 M/mm3 (3.60-5.2); RDW 15.8 % (11.6-15.6)
[2019-11-30 11:15] LABS: ANION GAP 8 MMOL/L (8-16); BLOOD UREA NITROGEN 10.4 mg/dL (7-18); CALCIUM 8.8 mg/dL (8.5-10.1); CHLORIDE 106 mmol/L (98-107); CO2 29 mmol/L (21-32); CREATININE 0.8 mg/dL (0.55-1.3); GLUCOSE,RANDOM 71 mg/dL (74-106); MAGNESIUM 2.4 mg/dL (1.8-2.4); SODIUM 142 mmol/L (136-145)
[2019-11-30] MEDS ORDERED: FUROSEMIDE 40 MG/4 ML INJECTABLE VIAL IVPUSH ONE (11:23)
[2019-11-30] MEDS ORDERED: FUROSEMIDE 40 MG/4 ML INJECTABLE VIAL ONE (11:30)
--- NOTE | 2019-11-30 11:53 | EKG ---
Test Reason : Blood Pressure : / mmHG Vent. Rate : 059 BPM Atrial Rate : 059 BPM P-R Int : 154 ms QRS Dur : 098 ms QT Int : 472 ms P-R-T Axes : 032 033 046 degrees QTc Int : 467 ms POOR DATA QUALITY, INTERPRETATION MAY BE ADVERSELY AFFECTED SINUS BRADYCARDIA MODERATE VOLTAGE CRITERIA FOR LVH, MAY BE NORMAL VARIANT INFERIOR INFARCT (CITED ON OR BEFORE 05-APR-2019) ABNORMAL ECG Confirmed by MD MILIND, SILVANA ([id number]) on 11/30/2019 11:53:35 AM Referred By: Confirmed By:SILVANA VAZ MD
--- NOTE | 2019-11-30 12:49 | CON.CARD ---
Consult Consult Specialty:: Cardiology Referred by:: Medicine Reason for Consultation:: HTN - History of Present Illness Chief Complaint: HTN History of Present Illness: 69F h/o CAD s/p [place] in 2001 and 03/2019, COVID+ 06/2019, COPD on 4L home O2, hep C, lung cancer, hypothyroidism p/w hypertensive urgency. She felt off for the last couple of days, something didn't feel right. Checked BP was 200s/90s and came to the ER. Has been taking meds as prescribed, sees Dr. Rivera for cardio and diltiazem was stopped a few days ago. Has been on cardizem and lopressor at home. Denies chest pain, palps, dizziness, dyspnea. feels better today. - Past Medical History Cardio/Vascular: Yes: CAD, HTN, [place], Other (PAF) Pulmonary: Yes: Bronchitis, Cancer (history of lung cancer), COPD, Pneumonia, Other (Emphysema Lung Ca (R- upper lobe removed, 40%)) Gastrointestinal: Yes: GERD Hepatobiliary: Yes: Hepatitis C ...: No Psych: Yes: Addictions (IVDU), Depression, Other (chronic insomnia) Musculoskeletal: Yes: Osteoarthritis, Other (Stenosis Herniated Discs Bulges) Endocrine: Yes: Hypothyroidism - Past Surgical History Past Surgical History: Yes: Joint Replacement (R-Hip), Laminectomy, Stent - Alcohol/Substance Use Hx Alcohol Use: No History of Substance Use: reports: Heroin (YEARS ago) - Smoking History Smoking history: Never smoked Have you smoked in the past 12 months: No Aproximately how many cigarettes per day: 1 If you are a former smoker, when did you quit?: 2009 - Social History Usual Living Arrangement: Alone History of Recent Travel: No Home Medications - Allergies Allergies/Adverse Reactions: Allergies Allergy/AdvReac Type Severity Reaction Status Date / Time No Known Allergies Allergy Verified 11/29/19 20:35 - Home Medications Home Medications: Ambulatory Orders Aspirin [ASA -] 81 mg PO DAILY #0 tab.chew 04/22/12 Albuterol Sulfate Inhaler - [Ventolin HFA Inhaler -] 2 inh PO Q6H PRN 08/20/15 Budesonide/Formeterol Fumarate [SYMBICORT 80/4.5mcg -] 1 inh PO BID 08/20/15 Diltiazem Cd [Cardizem Cd -] 1 cap PO DAILY 04/22/17 Levothyroxine [Synthroid -] 137.5 mcg PO DAILY 04/22/17 Methadone [Dolophine -] 130 mg PO DAILY 04/22/17 Omeprazole 40 mg PO DAILY 04/22/17 Valacyclovir HCl [Valtrex -] 500 mg PO DAILY 04/22/17 Venlafaxine HCl ER [Effexor Xr -] 75 mg PO DAILY 04/22/17 Furosemide [Lasix -] 40 mg PO DAILY PRN 05/08/17 Multivitamin [Multiple Vitamins] 1 each PO DAILY 05/08/17 Magnesium Oxide [Magnesium] 400 mg PO DAILY 08/01/17 Naloxegol Oxalate [Movantik] 25 mg PO WEEKLY 08/01/17 Potassium Chloride [K-Tab ER] 20 meq PO DAILY 08/01/17 Prochlorperazine Maleate [Compazine] 10 mg PO AC PRN 08/01/17 Ibuprofen [Motrin -] 800 mg PO DAILY PRN 09/14/17 Losartan Potassium [Cozaar] 100 mg PO DAILY 09/14/17 traZODone HCL [Trazodone HCl] 300 mg PO HS 08/06/18 Docusate Sodium [Colace -] 100 mg PO TID #90 capsule 01/14/19 Ergocalciferol (Vitamin D2) [Vitamin D2] 50,000 unit PO Q7D #4 capsule 01/14/19 Atorvastatin Ca [Lipitor] 80 mg PO HS 06/02/19 Sennosides [Senna] 2 tab PO DAILY #60 tablet 08/13/19 Diclofenac Sodium [Voltaren] 2 gm TP TID PRN #3 tube 08/18/19 Gabapentin [Neurontin -] 100 mg PO Q8H 10/28/19 Meloxicam [Mobic] 7.5 mg PO BID 10/28/19 Naloxone HCl [Narcan] 4 mg NS ASDIR PRN #1 spray 10/28/19 Oxycodone HCl/Acetaminophen [Endocet 5-325 Tablet] 1 each PO BID PRN #14 tablet MDD 2 10/28/19 Tizanidine HCl 2 mg PO TID PRN #90 tablet 10/28/19 Gabapentin 100 mg PO BID #60 capsule 11/03/19 Oxycodone HCl/Acetaminophen [Endocet 5-325 Tablet] 1 each PO BID PRN #14 tablet MDD 2 11/03/19 Tizanidine HCl 2 mg PO TID PRN #90 tablet 11/03/19 Family Medical History Family History: Unremarkable Review of Systems - Review of Systems Constitutional: reports: No Symptoms Eyes: reports: No Symptoms HENT: reports: No Symptoms Neck: reports: No Symptoms Cardiovascular: reports: No Symptoms Respiratory: reports: No Symptoms Gastrointestinal: reports: No Symptoms Genitourinary: reports: No Symptoms Musculoskeletal: reports: No Symptoms Integumentary: reports: No Symptoms Neurological: reports: No Symptoms Endocrine: reports: No Symptoms Hematology/Lymphatic: reports: No Symptoms Psychiatric: reports: No Symptoms Vital Signs: Vital Signs Temperature 98 F 11/30/19 11:27 Pulse Rate 59 L 11/30/19 11:27 Respiratory Rate 16 11/30/19 11:27 Blood Pressure 200/98 H 11/30/19 11:27 O2 Sat by Pulse Oximetry (%) 99 11/30/19 11:27 Constitutional: Yes: Well Nourished, No Distress, Calm Eyes: Yes: Conjunctiva Clear, EOM Intact HENT: Yes: Atraumatic, Normocephalic Neck: Yes: Supple, Trachea Midline Respiratory: Yes: Regular, CTA Bilaterally Gastrointestinal: Yes: Normal Bowel Sounds, Soft Cardiovascular: Yes: Regular Rate and Rhythm JVD: No Heart Sounds: Yes: S1, S2 Musculoskeletal: No: Back Pain Extremities: No: Cold Edema: Yes Edema: LLE: Trace, RLE: Trace Peripheral Pulses WNL: No Integumentary: No: Jaundice Neurological: Yes: Alert, Oriented Psychiatric: No: Agitated - Other Data Labs, Other Data: CBC, BMP 11/30/19 10:15 11/30/19 10:15 INR, PTT INR 0.95 (0.83-1.09) 11/29/19 20:45 Troponin, BNP 11/29/19 11/30/19 20:45 10:15 Troponin I < 0.02 < 0.02 B-Natriuretic Peptide 1398.8 H Troponin, BNP 11/29/19 11/30/19 20:45 10:15 Troponin I < 0.02 < 0.02 B-Natriuretic Peptide 1398.8 H Assessment/Plan EKG: sinus jemma, LVH, old inferior infarct echo 11/2019 mod conc LVH, mildly reduced LV function EF 45%, inf wall akinesis, RV nl, mod MR 69F h/o CAD, s/p [place], COVID+ 06/2019, COPD on home O2, lung cancer p/w hypertensive urgency hypertensive urgency - home meds resumed - losartan 100 mg daily and lopressor 25 mg BID - diltiazem dc'ed recently - had remote hx afib, has been in sinus with reduced EF - d/w Dr. Alva - significant history of anxiety, starting klonopin - if not improving start hydralazine 25 mg PO chronic systolic HF - likely ischemic cardiomyopathy - EF 45% on echo here - on PRN lasix at home - received one dose IV lasix here, monitor Cr, lytes - cont metoprolol, losartan CAD - trop neg x 2, EKG stable compared to prior - cont aspirin, plavix, statin hypothyroidism - manage per primary COPD - manage per primary
[2019-11-30] MEDS ORDERED: clonazePAM 0.5 MG TABLET PO ONE (12:55)
[2019-11-30] MEDS ORDERED: clonazePAM 0.5 MG TABLET ONE (13:43)
[2019-11-30 18:22] VITALS: BMI 26.4
[2019-11-30] MEDS: ACETAMINOPHEN 500 MG TABLET (FP) PO PRN (19:56)
[2019-11-30] MEDS: clonazePAM 0.5 MG TABLET PO PRN (19:56)
[2019-11-30] MEDS: GABAPENTIN 100 MG CAPSULE PO SCH (21:39)
[2019-11-30] MEDS ORDERED: SENNOSIDES 8.6MG TABLET (FP) PO SCH (22:00)
[2019-11-30] MEDS ORDERED: traZODone HCL 100 MG TABLET (FP) PO SCH (22:00)
[2019-11-30] MEDS ORDERED: ATORVASTATIN CA 80 MG TABLET (FP) PO SCH (22:00)
[2019-12-01] MEDS ORDERED: METHADONE HCL 40 MG DISPERSABLE TABLET ONE (06:25)
[2019-12-01] MEDS ORDERED: METHADONE HCL 10 MG TABLET ONE (06:26)
[2019-12-01] MEDS ORDERED: LEVOTHYROXINE NA 112 MCG TABLET (FP) ONE (06:26)
[2019-12-01] MEDS ORDERED: LEVOTHYROXINE NA 25 MCG TABLET (FP) ONE (06:26)
[2019-12-01] MEDS ORDERED: METHADONE 120 MG, METHADONE 10 MG PO SCH (06:30)
[2019-12-01] MEDS: LEVOTHYROXINE 112 MCG, LEVOTHYROXINE 25 MCG PO SCH (06:44)
[2019-12-01] MEDS: clonazePAM 0.5 MG TABLET PO PRN (06:45)
[2019-12-01] MEDS: PANTOPRAZOLE 40 MG TABLET PO SCH (06:45)
[2019-12-01] MEDS: DOCUSATE SODIUM 100 MG CAPSULE (FP) PO SCH ×2 (06:45→13:51)
[2019-12-01] MEDS: ACETAMINOPHEN 500 MG TABLET (FP) PO PRN (06:47)
[2019-12-01] MEDS ORDERED: PT OWN MED DRAWER 7, Y5N ONE (08:51)
[2019-12-01] MEDS: ASPIRIN 81 MG CHEWABLE TABLETS PO SCH (09:14)
[2019-12-01] MEDS: CLOPIDOGREL BISULFATE 75 MG TABLET (FP) PO SCH (09:14)
[2019-12-01] MEDS: MULTIVITAMINS (DAILY MVI) TABLET (FP) PO SCH (09:14)
[2019-12-01] MEDS: MAGNESIUM OXIDE 400 MG TABLET (FP) PO SCH (09:14)
[2019-12-01] MEDS: VENLAFAXINE HCL 75 MG E.R. CAPSULES PO SCH (09:14)
[2019-12-01] MEDS: ENOXAPARIN NA (PORCINE) 40 MG/0.4 ML DISP.SYRIN SQ SCH (09:15)
[2019-12-01] MEDS: BUDESONIDE/FORMETEROL FUMARATE 80/4.5 mcg INHALER IH SCH (09:16)
[2019-12-01] MEDS: METOPROLOL TARTRATE 25 MG TABLET (FP) PO SCH (09:16)
[2019-12-01] MEDS: GABAPENTIN 100 MG CAPSULE PO SCH (09:21)
[2019-12-01] MEDS ORDERED: LOSARTAN POTASSIUM 50 MG TABLET (FP) PO SCH (10:00)
[2019-12-01 11:04] LABS: HEMATOCRIT 33.6 % (32.4-45.2); HEMOGLOBIN 10.8 GM/dL (10.7-15.3); MCH 30.6 pg (25.7-33.7); MCHC 32.1 g/dl (32.0-36.0); MEAN CELL VOLUME 95.4 fl (80-96); MEAN PLT VOLUME 8.3 fl (7.5-11.1); PLATELET COUNT 216 K/MM3 (134-434); RBC 3.53 M/mm3 (3.60-5.2); WHITE BLOOD COUNT 8.8 K/mm3 (4.0-10.0)
[2019-12-01 11:52] LABS: BILIRUBIN,TOTAL 0.2 mg/dL (0.2-1); CALCIUM 8.5 mg/dL (8.5-10.1); CREATININE 0.9 mg/dL (0.55-1.3); POTASSIUM 3.8 mmol/L (3.5-5.1); TOT PROT 6.1 g/dl (6.4-8.2)
--- NOTE | 2019-12-01 12:14 | PN ---
Progress Note (short form) - Note Progress Note: cc: hypertension s: feels tired. no chest pain, palps, dizziness, dyspnea Current Medications Generic Name Dose Route Start Last Admin Trade Name Freq PRN Reason Stop Dose Admin Acetaminophen 1,000 mg 11/30/19 13:05 12/01/19 06:47 Tylenol - PO 1,000 mg Q6H PRN Administration HEADACHE Albuterol Sulfate 2 puff 11/30/19 04:28 Ventolin Hfa Inhaler - IH Q6H PRN SHORT OF BREATH/WHEEZING Aspirin 81 mg 11/30/19 10:00 12/01/19 09:14 Asa - PO 81 mg DAILY EDUARD Administration Atorvastatin Calcium 80 mg 11/30/19 22:00 11/30/19 21:39 Lipitor - PO 80 mg HS EDUARD Administration Budesonide/Formoterol Fumarate 1 puff 11/30/19 10:00 12/01/19 09:16 Symbicort 80/4.5mcg - IH 1 puff BID EDUARD Administration Clonazepam 1 mg 11/30/19 12:55 12/01/19 06:45 Klonopin - PO 1 mg Q8H PRN Administration ANXIETY Clopidogrel Bisulfate 75 mg 11/30/19 10:00 12/01/19 09:14 Plavix - PO 75 mg DAILY EDUARD Administration Docusate Sodium 100 mg 11/30/19 06:00 12/01/19 06:45 Colace - PO 100 mg TID EDUARD Administration Enoxaparin Sodium 40 mg 11/30/19 10:00 12/01/19 09:15 Lovenox - SQ 40 mg DAILY EDUARD Administration Ergocalciferol 50,000 unit 12/03/19 10:00 Drisdol - PO Fr@1000 EDUARD Gabapentin 200 mg 11/30/19 13:05 12/01/19 09:21 Neurontin - PO Not Given BID EDUARD Levothyroxine Sodium 112 mcg/ 137 mcg 11/30/19 07:00 12/01/19 06:44 Levothyroxine Sodium 25 mcg PO 137 mcg DAILY@0700 EDUARD Administration Losartan Potassium 100 mg 12/01/19 10:00 12/01/19 09:15 Cozaar - PO 100 mg DAILY EDUARD Administration Magnesium Oxide 400 mg 11/30/19 10:00 12/01/19 09:14 Mag-Ox - PO 400 mg DAILY EDUARD Administration Methadone HCl 120 mg/ 130 mg 12/01/19 06:30 12/01/19 06:45 Methadone HCl 10 mg PO 130 mg DAILY@0600 EDUARD Administration Metoprolol Tartrate 25 mg 11/30/19 10:00 12/01/19 09:16 Lopressor - PO Not Given BID [facility] Multivitamins/Minerals/Vitamin C 1 tab 11/30/19 10:00 12/01/19 09:14 Tab-A-Vit - PO 1 tab DAILY EDUARD Administration Pantoprazole Sodium 40 mg 11/30/19 07:00 12/01/19 06:45 Protonix - PO 40 mg ACBK EDUARD Administration Senna 2 tab 11/30/19 22:00 11/30/19 21:39 Senna - PO 2 tab HS EDUARD Administration Trazodone HCl 300 mg 11/30/19 22:00 11/30/19 21:39 Desyrel - PO 300 mg HS EDUARD Administration Venlafaxine HCl 75 mg 11/30/19 10:00 12/01/19 09:14 Effexor Xr - PO 75 mg DAILY EDUARD Administration Vital Signs Period Temp Pulse Resp BP Sys/Roman Pulse Ox Last 24 Hr 97.5 F-98.4 F 51-63 16-20 127-183/59-90 95-100 Constitutional: Yes: Well Nourished, No Distress, Calm Eyes: Yes: Conjunctiva Clear, EOM Intact HENT: Yes: Atraumatic, Normocephalic Neck: Yes: Supple, Trachea Midline Respiratory: Yes: Regular, CTA Bilaterally Gastrointestinal: Yes: Normal Bowel Sounds, Soft Cardiovascular: Yes: Regular Rate and Rhythm JVD: No Heart Sounds: Yes: S1, S2 Musculoskeletal: No: Back Pain Extremities: No: Cold Edema: Yes Edema: LLE: Trace, RLE: Trace Integumentary: No: Jaundice Neurological: Yes: Alert, Oriented Psychiatric: No: Agitated Assessment/Plan EKG: sinus jemma, LVH, old inferior infarct echo 11/2019 mod conc LVH, mildly reduced LV function EF 45%, inf wall akinesis, RV nl, mod MR tele: sinus jemma 69F h/o CAD, s/p [place], COVID+ 06/2019, COPD on home O2, lung cancer p/w hypertensive urgency hypertensive urgency - home meds resumed - losartan 100 mg daily and lopressor 25 mg BID - diltiazem dc'ed recently - had remote hx afib, has been in sinus with reduced EF - d/w Dr. Alva - significant history of anxiety, started klonopin, BP improving chronic systolic HF - likely ischemic cardiomyopathy - EF 45% on echo here - on PRN lasix at home - received one dose IV lasix here, monitor Cr, lytes - cont metoprolol, losartan CAD - trop neg x 2, EKG stable compared to prior - cont aspirin, plavix, statin hypothyroidism - manage per primary COPD - manage per primary PAD - has planned angiogram with Dr Wooten this week hypothyroidism - TSH 24.9 - manage per primary
--- NOTE | 2019-12-01 13:24 | PN ---
Progress Note (short form) - Note Progress Note: see dc summary Problem List - Problems (1) HTN (hypertension) Code(s): I10 - ESSENTIAL (PRIMARY) HYPERTENSION Qualifiers: Hypertension type: essential hypertension Qualified Code(s): I10 - Essential (primary) hypertension (3) COPD (chronic obstructive pulmonary disease) Code(s): J44.9 - CHRONIC OBSTRUCTIVE PULMONARY DISEASE, UNSPECIFIED Qualifiers: COPD type: chronic bronchitis (4) PVD (peripheral vascular disease) Code(s): I73.9 - PERIPHERAL VASCULAR DISEASE, UNSPECIFIED
--- NOTE | 2019-12-01 13:31 | EKG ---
Test Reason : Blood Pressure : / mmHG Vent. Rate : 054 BPM Atrial Rate : 054 BPM P-R Int : 120 ms QRS Dur : 096 ms QT Int : 462 ms P-R-T Axes : 032 022 044 degrees QTc Int : 438 ms POOR DATA QUALITY, INTERPRETATION MAY BE ADVERSELY AFFECTED SINUS BRADYCARDIA POSSIBLE LEFT ATRIAL ENLARGEMENT INFERIOR INFARCT (CITED ON OR BEFORE 05-APR-2019) ABNORMAL ECG Confirmed by MD MILIND, SILVANA ([id number]) on 12/01/2019 1:30:50 PM Referred By: Confirmed By:SILVANA VAZ MD
[2019-12-01] MEDS ORDERED: clonazePAM 0.5 MG TABLET PO PRN (13:42)
--- NOTE | 2019-12-01 13:46 | DS ---
Physical Examination Vital Signs: Vital Signs Temperature 97.8 F 12/01/19 09:12 Pulse Rate 57 L 12/01/19 09:12 Respiratory Rate 18 12/01/19 09:12 Blood Pressure 127/75 12/01/19 09:12 O2 Sat by Pulse Oximetry (%) 99 12/01/19 10:00 Constitutional: Yes: No Distress, Calm Cardiovascular: Yes: Regular Rate and Rhythm Respiratory: Yes: Diminished Gastrointestinal: Yes: Normal Bowel Sounds, Soft. No: Tenderness Edema: Yes Edema: LLE: Trace, RLE: Trace Labs: CBC, BMP 12/01/19 10:40 12/01/19 10:40 Discharge Summary Problems reviewed: Yes Reason For Visit: CHEST PAIN,RULE OUT ACUTE MYOCARDIAL INFARCTION, Current Active Problems PVD (peripheral vascular disease) (Acute) HTN (hypertension) (Chronic) Paroxysmal atrial fibrillation (Chronic) Status post total hip replacement, right (Chronic) Hospital Course: Admitted for Hypertensive Urgency c/o chest pain , dizziness and her BP was elevated Anxious Adjusted BP meds Started her on Klonopin Seen by Cardiology Cardiac enzymes negative Echo -- mildly reduced LV systolic function Sono legs negative for DVT Pt has appt with vascular end of this week for angiogram BP better likely to be panic attack Stable for dc home Condition: Improved - Instructions Referrals: Levon Rivera MD [Staff Physician] - Jessica Mena MD [Primary Care Provider] - Disposition: HOME - Home Medications Comprehensive Discharge Medication List: Ambulatory Orders Aspirin [ASA -] 81 mg PO DAILY #0 tab.chew 04/22/12 Albuterol Sulfate Inhaler - [Ventolin HFA Inhaler -] 2 inh PO Q6H PRN 08/20/15 Budesonide/Formeterol Fumarate [SYMBICORT 80/4.5mcg -] 2 puff PO BID 08/20/15 Levothyroxine [Synthroid -] 1.37 mcg PO DAILY 04/22/17 Methadone [Dolophine -] 130 mg PO DAILY 04/22/17 Omeprazole 40 mg PO DAILY 04/22/17 Valacyclovir HCl [Valtrex -] 500 mg PO DAILY 04/22/17 Venlafaxine HCl ER [Effexor Xr -] 75 mg PO DAILY 04/22/17 Furosemide [Lasix -] 40 mg PO DAILY PRN 05/08/17 Multivitamin [Multiple Vitamins] 1 each PO DAILY 05/08/17 Magnesium Oxide [Magnesium] 400 mg PO DAILY 08/01/17 Prochlorperazine Maleate [Compazine] 10 mg PO AC PRN 08/01/17 Ibuprofen [Motrin -] 800 mg PO DAILY PRN 09/14/17 Losartan Potassium [Cozaar] 100 mg PO DAILY 09/14/17 traZODone HCL [Trazodone HCl] 300 mg PO HS 08/06/18 Docusate Sodium [Colace -] 100 mg PO TID #90 capsule 01/14/19 Ergocalciferol (Vitamin D2) [Vitamin D2] 50,000 unit PO Q7D #4 capsule 01/14/19 Atorvastatin Ca [Lipitor] 80 mg PO HS 06/02/19 Naloxone HCl [Narcan] 4 mg NS ASDIR PRN #1 spray 10/28/19 Gabapentin 100 mg PO BID #60 capsule 11/03/19 Clopidogrel Bisulfate [Plavix] 75 mg PO DAILY 11/30/19 Metoprolol Tartrate [Lopressor -] 25 mg PO BID 11/30/19 Sennosides [Senna] 8.6 mg PO DAILY 11/30/19 Tizanidine HCl [Zanaflex (Nf) -] 4 mg PO TID 11/30/19 Levothyroxine [Synthroid -] 150 mcg PO DAILY@0700 #30 tablet 12/01/19 clonazePAM [Klonopin -] 0.5 mg PO Q12H PRN #7 tablet MDD 2 12/01/19
[2019-12-01 14:46] VITALS: BP 125/69; PULSE 52; TEMP 98.5
[2019-12-02] MEDS ORDERED: LEVOTHYROXINE NA 150 MCG TABLET PO SCH (07:00)
[2019-12-03] MEDS ORDERED: ERGOCALCIFEROL (VIT D2) 50,000 UNIT (1.25 MG) CAPSULE PO SCH (10:00)
== END 2019-12-01 17:14 | disposition home or self-care (01) | DRG 305 ==
LOC: JER 20:30 → JERBED 21:36 → J4S 11-30 17:23
PROVIDERS: ADMIT Hospitalist; ATTEND Internal Medicine
DX: I16.0 Hypertensive urgency (principal); I50.22 Chronic systolic (congestive) heart failure; F11.20 Opioid dependence, uncomplicated; I25.10 Atherosclerotic heart disease of native coronary artery without angina pectoris; E03.9 Hypothyroidism, unspecified; M41.9 Scoliosis, unspecified; J44.9 Chronic obstructive pulmonary disease, unspecified; I73.9 Peripheral vascular disease, unspecified; I11.0 Hypertensive heart disease with heart failure; R00.1 Bradycardia, unspecified; I48.0 Paroxysmal atrial fibrillation; K21.9 Gastro-esophageal reflux disease without esophagitis; G62.9 Polyneuropathy, unspecified; F41.8 Other specified anxiety disorders; I34.0 Nonrheumatic mitral (valve) insufficiency; I25.5 Ischemic cardiomyopathy; I25.2 Old myocardial infarction; Z85.118 Personal history of other malignant neoplasm of bronchus and lung; Z99.81 Dependence on supplemental oxygen; Z95.5 Presence of coronary angioplasty implant and graft; Z90.2 Acquired absence of lung [part of]; Z96.641 Presence of right artificial hip joint
CPT/HCPCS: 36415; 71045-TC-FY; 80048; 80053; 80061; 82550; 82553; 82962; 83605; 83721; 83735; 83880; 84439; 84443; 84484; 85025; 85027; 85610; 85730; 93005; 93010; 93306-TC; 93970-TC; 99285-25; J0131; U0003

== ENCOUNTER 2021-01-18 11:21 | Observation (INO) | payer OTHER ==
[2021-01-18 11:44] VITALS: BMI 34.1
[2021-01-18] MEDS ORDERED: ACETAMINOPHEN 1000 MG/100 ML VIAL IVPB ONE (13:17)
[2021-01-18] MEDS ORDERED: ACETAMINOPHEN INJECTION 100 ML IVPB ONE (14:28)
[2021-01-18 15:31] LABS: BASO % 0.9 % (0-2.0); EOS % 5.3 % (0-4.5); HEMATOCRIT 36.3 % (32.4-45.2); HEMOGLOBIN 12.2 GM/dL (10.7-15.3); LYMPH % 33.3 % (8-40); MCH 33.3 pg (25.7-33.7); MCHC 33.5 g/dl (32.0-36.0); MEAN CELL VOLUME 99.4 fl (80-96); MEAN PLT VOLUME 8.5 fl (7.5-11.1); MONO % 7.7 % (3.8-10.2); NEUT % 52.8 % (42.8-82.8); PLATELET COUNT 235 10^3/uL (134-434); RBC 3.65 M/mm3 (3.60-5.2); RDW 15.3 % (11.6-15.6); WHITE BLOOD COUNT 5.5 K/mm3 (4.0-10.0)
[2021-01-18 15:58] LABS: CHLORIDE 111 mmol/L (98-107); SODIUM 141 mmol/L (136-145)
[2021-01-18 16:03] LABS: ALBUMIN 3.5 g/dl (3.4-5.0); ANION GAP 5 MMOL/L (8-16); BLOOD UREA NITROGEN 18.6 mg/dL (7-18); CALCIUM 8.6 mg/dL (8.5-10.1); CO2 25 mmol/L (21-32); GLUCOSE,RANDOM 74 mg/dL (74-106)
[2021-01-18 16:06] LABS: SGOT/AST 31 U/L (15-37); SGPT/ALT 27 U/L (13-61)
[2021-01-18 16:07] LABS: BILIRUBIN,TOTAL 0.3 mg/dL (0.2-1); TOT PROT 7.3 g/dl (6.4-8.2)
[2021-01-18 16:09] LABS: ALK PHOS 86 U/L (45-117)
[2021-01-18 16:47] LABS: INR 1.07 (0.83-1.09); PROTHROMBIN TIME (PATIENT) 12.5 SEC (9.7-13.0)
[2021-01-18 16:50] LABS: ACTIVATED PTT 26.1 SECONDS (25.2-36.5)
[2021-01-18 22:36] LABS: PH,URINE 6.5 (5.0-8.0); URINE APPEARANCE CLEAR; URINE BILIRUBIN NEGATIVE (NEGATIVE); URINE COLOR YELLOW; URINE GLUCOSE (UA) NEGATIVE (NEGATIVE); URINE KETONE NEGATIVE (NEGATIVE); URINE PROTEIN NEGATIVE (NEGATIVE)
[2021-01-18 22:37] LABS: URINE LEUK ESTERASE NEGATIVE (NEGATIVE); URINE NITRITE NEGATIVE (NEGATIVE); URINE UROBILINOGEN 0.2 mg/dL (0.2-1.0)
[2021-01-19] MEDS ORDERED: DOCUSATE SODIUM 100 MG CAPSULE (FP) PO PRN (02:53)
[2021-01-19] MEDS ORDERED: MELATONIN 5 MG TABLETS PO ONE (02:59)
[2021-01-19] MEDS ORDERED: MELATONIN 5 MG TABLETS ONE (03:31)
[2021-01-19] MEDS ORDERED: ATORVASTATIN CA 80 MG TABLET (FP) ONE (03:32)
[2021-01-19] MEDS ORDERED: ACETAMINOPHEN 325 MG TABLET (FP) ONE (03:32)
[2021-01-19] MEDS: ATORVASTATIN CA 80 MG TABLET (FP) PO SCH ×2 (03:38→22:20)
[2021-01-19] MEDS: ACETAMINOPHEN 325 MG TABLET (FP) PO PRN ×3 (03:38→23:04)
[2021-01-19] MEDS ORDERED: METOCLOPRAMIDE HCL INJECTION 10 MG/2 ML VIAL IVPB ONE (05:37)
[2021-01-19] MEDS: LEVOTHYROXINE NA 150 MCG TABLET PO SCH (06:43)
[2021-01-19] MEDS: clonazePAM 0.5 MG TABLET PO PRN ×2 (08:44→22:21)
[2021-01-19 09:08] LABS: BASO % 0.6 % (0-2.0); EOS % 1.4 % (0-4.5); HEMATOCRIT 33.3 % (32.4-45.2); HEMOGLOBIN 11.3 GM/dL (10.7-15.3); LYMPH % 16.5 % (8-40); MCH 33.3 pg (25.7-33.7); MCHC 33.8 g/dl (32.0-36.0); MEAN CELL VOLUME 98.8 fl (80-96); MEAN PLT VOLUME 8.4 fl (7.5-11.1); MONO % 3.2 % (3.8-10.2); NEUT % 78.3 % (42.8-82.8); PLATELET COUNT 223 10^3/uL (134-434); RBC 3.38 M/mm3 (3.60-5.2); RDW 15.2 % (11.6-15.6); WHITE BLOOD COUNT 5.4 K/mm3 (4.0-10.0)
[2021-01-19] MEDS ORDERED: methaDONE HCL 10 MG TABLET ONE (09:23)
[2021-01-19] MEDS ORDERED: methaDONE HCL 40 MG DISPERSABLE TABLET ONE (09:25)
[2021-01-19 09:26] LABS: CHLORIDE 113 mmol/L (98-107); SODIUM 142 mmol/L (136-145)
[2021-01-19] MEDS ORDERED: PT OWN MED DRAWER 7, Y5N ONE (09:26)
[2021-01-19] MEDS: MULTIVITAMINS (DAILY MVI) TABLET (FP) PO SCH (09:34)
[2021-01-19] MEDS: CLOPIDOGREL BISULFATE 75 MG TABLET (FP) PO SCH (09:34)
[2021-01-19] MEDS: amLODIPine BESYLATE 5 MG TABLET (FP) PO SCH (09:34)
[2021-01-19 09:35] LABS: ANION GAP 6 MMOL/L (8-16); BILIRUBIN,TOTAL 0.4 mg/dL (0.2-1); BLOOD UREA NITROGEN 14.1 mg/dL (7-18); CALCIUM 8.7 mg/dL (8.5-10.1); CO2 24 mmol/L (21-32); GLUCOSE,RANDOM 96 mg/dL (74-106); MAGNESIUM 1.8 mg/dL (1.8-2.4)
[2021-01-19 09:37] LABS: ALK PHOS 76 U/L (45-117); HDL CHOLESTEROL 45 mg/dL (40-60)
[2021-01-19 09:38] LABS: CHOLESTEROL 133 mg/dL (50-200); CREATININE 0.8 mg/dL (0.55-1.3); SGOT/AST 26 U/L (15-37); SGPT/ALT 24 U/L (13-61); TRIGLYCERIDES 72 mg/dL (0-150)
[2021-01-19 09:39] LABS: LDL CHOLESTEROL (ONLY SJRH) 71 mg/dL (5-100)
[2021-01-19 09:40] LABS: TOT PROT 6.3 g/dl (6.4-8.2)
[2021-01-19] MEDS ORDERED: methaDONE HCL 10 MG TABLET (FOR DETOX USE ONLY) PO SCH (10:00)
[2021-01-19] MEDS: VENLAFAXINE HCL 75 MG E.R. CAPSULES PO SCH (12:35)
[2021-01-19] MEDS: BUDESONIDE/FORMETEROL FUMARATE 80/4.5 mcg INHALER IH SCH ×2 (12:35→22:20)
[2021-01-19] MEDS: LIDOCAINE 5% TOPICAL PATCH TP SCH (22:20)
[2021-01-20] MEDS ORDERED: methaDONE HCL 10 MG TABLET ONE (06:15)
[2021-01-20] MEDS ORDERED: methaDONE HCL 40 MG DISPERSABLE TABLET ONE (06:16)
[2021-01-20] MEDS: LEVOTHYROXINE NA 150 MCG TABLET PO SCH (06:17)
[2021-01-20] MEDS: ACETAMINOPHEN 325 MG TABLET (FP) PO PRN ×3 (06:17→21:23)
[2021-01-20] MEDS ORDERED: PT OWN MED DRAWER 7, Y5N ONE ×2 (09:17→15:32)
[2021-01-20] MEDS: amLODIPine BESYLATE 5 MG TABLET (FP) PO SCH (09:28)
[2021-01-20] MEDS: MULTIVITAMINS (DAILY MVI) TABLET (FP) PO SCH (09:29)
[2021-01-20] MEDS: CLOPIDOGREL BISULFATE 75 MG TABLET (FP) PO SCH (09:29)
[2021-01-20] MEDS: BUDESONIDE/FORMETEROL FUMARATE 80/4.5 mcg INHALER IH SCH ×2 (09:30→21:23)
[2021-01-20] MEDS: clonazePAM 0.5 MG TABLET PO PRN ×2 (09:38→21:23)
[2021-01-20] MEDS: LIDOCAINE PATCH REMOVAL MC SCH (11:00)
[2021-01-20] MEDS: VENLAFAXINE HCL 75 MG E.R. CAPSULES PO SCH (16:23)
[2021-01-20] MEDS: LIDOCAINE 5% TOPICAL PATCH TP SCH (21:23)
[2021-01-20] MEDS: ATORVASTATIN CA 80 MG TABLET (FP) PO SCH (21:23)
[2021-01-21] MEDS ORDERED: methaDONE HCL 10 MG TABLET ONE (06:29)
[2021-01-21] MEDS ORDERED: methaDONE HCL 40 MG DISPERSABLE TABLET ONE (06:30)
[2021-01-21] MEDS: ACETAMINOPHEN 325 MG TABLET (FP) PO PRN (06:33)
[2021-01-21] MEDS: LEVOTHYROXINE NA 150 MCG TABLET PO SCH (06:33)
[2021-01-21] MEDS: VENLAFAXINE HCL 75 MG E.R. CAPSULES PO SCH (09:18)
[2021-01-21] MEDS: MULTIVITAMINS (DAILY MVI) TABLET (FP) PO SCH (09:18)
[2021-01-21] MEDS: BUDESONIDE/FORMETEROL FUMARATE 80/4.5 mcg INHALER IH SCH (09:18)
[2021-01-21] MEDS: LIDOCAINE PATCH REMOVAL MC SCH (09:18)
[2021-01-21] MEDS: amLODIPine BESYLATE 5 MG TABLET (FP) PO SCH (09:18)
[2021-01-21] MEDS: CLOPIDOGREL BISULFATE 75 MG TABLET (FP) PO SCH (09:18)
[2021-01-21] MEDS: clonazePAM 0.5 MG TABLET PO PRN (09:25)
[2021-01-21] MEDS ORDERED: HYDROCHLOROTHIAZIDE 12.5 MG CAPSULE (FP) PO SCH (10:00)
[2021-01-21 10:24] VITALS: BP 158/84; PULSE 72; TEMP 98.1
== END 2021-01-21 15:01 | disposition left against medical advice (07) ==
LOC: JER 11:21 → JERBED 13:11 → J2W 01-19 05:46
PROVIDERS: ADMIT Internal Medicine; ATTEND Internal Medicine
PROC: 3E033NZ Introduction of Analgesics, Hypnotics, Sedatives into Peripheral Vein, Percutaneous Approach (ICD-10-PCS; principal; 2021-01-18)
PROC: 3E033GC Introduction of Other Therapeutic Substance into Peripheral Vein, Percutaneous Approach (ICD-10-PCS; 2021-01-18)
DX: R55 Syncope and collapse (principal); S09.90XA Unspecified injury of head, initial encounter; S62.619A Displaced fracture of proximal phalanx of unspecified finger, initial encounter for closed fracture; W18.39XA Other fall on same level, initial encounter; Y93.89 Activity, other specified; Y92.89 Other specified places as the place of occurrence of the external cause; E66.9 Obesity, unspecified; Z68.34 Body mass index [BMI] 34.0-34.9, adult; I73.9 Peripheral vascular disease, unspecified; J44.9 Chronic obstructive pulmonary disease, unspecified; I50.22 Chronic systolic (congestive) heart failure; Z87.891 Personal history of nicotine dependence; Z85.118 Personal history of other malignant neoplasm of bronchus and lung; F11.20 Opioid dependence, uncomplicated; Z20.822 Contact with and (suspected) exposure to COVID-19; I25.10 Atherosclerotic heart disease of native coronary artery without angina pectoris; F32.9 Major depressive disorder, single episode, unspecified; M19.90 Unspecified osteoarthritis, unspecified site; E03.9 Hypothyroidism, unspecified; B19.20 Unspecified viral hepatitis C without hepatic coma; I48.0 Paroxysmal atrial fibrillation; I11.0 Hypertensive heart disease with heart failure; I50.9 Heart failure, unspecified
CPT/HCPCS: 36415; 70450-TC; 70486-TC; 71045-TC-FY; 71260-TC; 72125-TC; 73130-TC-LT-FY; 73523-TC-FY; 74177-TC; 80053; 80061; 81003; 82550; 82553; 83735; 84443; 84484; 85025; 85610; 85730; 87086; 93005; 93010; 93880-TC; 96374; 96375; 99285-25; C9803; G0378; J0131; Q9967; U0003; U0005

== ENCOUNTER 2021-07-20 08:10 | Inpatient (IN) | payer OTHER ==
[2021-07-20 08:39] VITALS: BMI 33.7
[2021-07-20] MEDS ORDERED: ALBUTEROL SO4 2.5/IPRATROPIUM 0.5 INH SOL 3 ML VIAL.NEB. NEB ONE ×2 (09:15→09:45)
[2021-07-20 09:43] LABS: URINE APPEARANCE CLEAR; URINE BILIRUBIN NEGATIVE (NEGATIVE); URINE COLOR YELLOW; URINE GLUCOSE (UA) NEGATIVE (NEGATIVE); URINE KETONE NEGATIVE (NEGATIVE); URINE LEUK ESTERASE NEGATIVE (NEGATIVE); URINE NITRITE NEGATIVE (NEGATIVE); URINE PROTEIN NEGATIVE (NEGATIVE); URINE UROBILINOGEN 0.2 mg/dL (0.2-1.0)
[2021-07-20] MEDS ORDERED: ACETAMINOPHEN 1000 MG/100 ML BAG IVPB ONE ×2 (09:53→19:43)
[2021-07-20] MEDS ORDERED: ACETAMINOPHEN INJECTION 100 ML IVPB ONE ×2 (10:11→19:46)
[2021-07-20 11:41] LABS: BASO % 0.3 % (0-2.0); EOS % 0.3 % (0-4.5); HEMOGLOBIN 12.1 GM/dL (10.7-15.3); LYMPH % 8.2 % (8-40); MCH 31.7 pg (25.7-33.7); MCHC 32.6 g/dl (32.0-36.0); MEAN CELL VOLUME 97.4 fl (80-96); MEAN PLT VOLUME 8.6 fl (7.5-11.1); MONO % 6.2 % (3.8-10.2); PLATELET COUNT 200 10^3/uL (134-434); RDW 15.1 % (11.6-15.6); WHITE BLOOD COUNT 7.8 K/mm3 (4.0-10.0)
[2021-07-20 11:47] LABS: INR 1.1 (0.83-1.09); PROTHROMBIN TIME (PATIENT) 12.7 SEC (9.7-13.0)
[2021-07-20 11:50] LABS: ACTIVATED PTT 28.1 SECONDS (25.2-36.5)
[2021-07-20 11:53] LABS: VENOUS BASE EXCESS -1.7 mmol/L (-2-2); VENOUS O2 SATURATION 71.4 % (70-80); VENOUS PCO2 66.7 mmHg (38-52); VENOUS PH 7.24 (7.310-7.410)
[2021-07-20 12:03] LABS: BLOOD UREA NITROGEN 8.6 mg/dL (7-18); CALCIUM 8.6 mg/dL (8.5-10.1)
[2021-07-20 12:04] LABS: ALBUMIN 3.4 g/dl (3.4-5.0)
[2021-07-20 12:06] LABS: CREATININE 0.8 mg/dL (0.55-1.3)
[2021-07-20 12:08] LABS: BILIRUBIN,TOTAL 0.2 mg/dL (0.2-1); TOT PROT 7.1 g/dl (6.4-8.2)
[2021-07-20] MEDS ORDERED: methaDONE HCL 10 MG TABLET (FOR DETOX USE ONLY) PO ONE (14:02)
[2021-07-20] MEDS ORDERED: methaDONE HCL 40 MG DISPERSABLE TABLET ONE (14:12)
[2021-07-20] MEDS ORDERED: methaDONE HCL 10 MG TABLET ONE (14:12)
[2021-07-20] MEDS ORDERED: METOCLOPRAMIDE HCL INJECTION 10 MG/2 ML VIAL IVPUSH ONE (18:25)
[2021-07-20] MEDS ORDERED: METOCLOPRAMIDE HCL INJECTION 10 MG/2 ML VIAL ONE (18:27)
[2021-07-20] MEDS ORDERED: CEFTRIAXONE 1,000 MG in DEXTROSE 5%-WATER - 50 ML IVPB ONE (18:31)
[2021-07-20] MEDS ORDERED: AZITHROMYCIN IVPB 500 MG in DEXTROSE 5%-WATER - 250 ML IVPB ONE (18:32)
[2021-07-20] MEDS ORDERED: AZITHROMYCIN IVPB 500 MG/250 ML BAG IVPB ONE (18:54)
[2021-07-20] MEDS ORDERED: CEFTRIAXONE 1 GM/50 ML BAG ONE (18:54)
[2021-07-20] MEDS ORDERED: POLYETHYLENE GLYCOL (HEALTHYLAX) 3350 17 GM PACKET PO PRN (21:23)
[2021-07-20] MEDS ORDERED: PROCHLORPERAZINE MALEATE 5 MG TABLET PO PRN (22:29)
[2021-07-20] MEDS ORDERED: ACETAMINOPHEN 325 MG TABLET (FP) ONE (22:35)
[2021-07-20] MEDS: ACETAMINOPHEN 325 MG TABLET (FP) PO PRN (22:35)
[2021-07-20] MEDS ORDERED: ALBUTEROL SO4 HFA INHALER IH PRN (22:37)
[2021-07-20] MEDS ORDERED: METOPROLOL TARTRATE 25 MG TABLET (FP) ONE (23:17)
[2021-07-20] MEDS ORDERED: GABAPENTIN 100 MG CAPSULE ONE (23:17)
[2021-07-21] MEDS: GABAPENTIN 100 MG CAPSULE PO SCH ×3 (00:21→22:07)
[2021-07-21] MEDS: METOPROLOL TARTRATE 25 MG TABLET (FP) PO SCH ×3 (00:21→22:07)
[2021-07-21 01:01] LABS: VENOUS BASE EXCESS -2.4 mmol/L (-2-2); VENOUS O2 SATURATION 83.5 % (70-80); VENOUS PH 7.265 (7.310-7.410)
[2021-07-21] MEDS: IBUPROFEN 400 MG TABLET (FP) PO PRN (03:47)
[2021-07-21] MEDS: DOCUSATE SODIUM 100 MG CAPSULE (FP) PO SCH ×3 (06:49→22:05)
[2021-07-21] MEDS: ACETAMINOPHEN 325 MG TABLET (FP) PO PRN (06:49)
[2021-07-21 07:06] LABS: BASO % 0.4 % (0-2.0); HEMATOCRIT 35.4 % (32.4-45.2); HEMOGLOBIN 11.5 GM/dL (10.7-15.3); LYMPH % 9.9 % (8-40); MCH 31.7 pg (25.7-33.7); MCHC 32.4 g/dl (32.0-36.0); MEAN CELL VOLUME 97.7 fl (80-96); MEAN PLT VOLUME 8.3 fl (7.5-11.1); MONO % 6.6 % (3.8-10.2); NEUT % 83.1 % (42.8-82.8); PLATELET COUNT 153 10^3/uL (134-434); RBC 3.62 M/mm3 (3.60-5.2); RDW 15.4 % (11.6-15.6); WHITE BLOOD COUNT 6.6 K/mm3 (4.0-10.0)
[2021-07-21] MEDS: LEVOTHYROXINE NA 200 MCG TABLET PO SCH (07:25)
[2021-07-21 07:33] LABS: BLOOD UREA NITROGEN 12.1 mg/dL (7-18); CALCIUM 8.3 mg/dL (8.5-10.1)
[2021-07-21 07:34] LABS: MAGNESIUM 2.1 mg/dL (1.8-2.4)
[2021-07-21 07:37] LABS: CREATININE 0.7 mg/dL (0.55-1.3)
[2021-07-21 08:33] LABS: ARTERIAL BLD GAS O2 SATURATION 95.9 % (95-98); ARTERIAL BLOOD GAS BASE EXCESS -0.5 mmol/L (-2-2); ARTERIAL BLOOD GAS PO2 87.2 mmHg (80-100); ARTERIAL BLOOD GAS pH 7.324 (7.350-7.450)
[2021-07-21 08:37] LABS: ALLENS TEST POSITIVE
[2021-07-21 08:38] LABS: VENT MODE S/T; VENT RATE 16
[2021-07-21] MEDS ORDERED: methaDONE HCL 10 MG TABLET (FOR DETOX USE ONLY) PO ONE (09:04)
[2021-07-21] MEDS ORDERED: methaDONE HCL 40 MG DISPERSABLE TABLET ONE ×2 (09:14→09:38)
[2021-07-21] MEDS ORDERED: cefTRIAXone SODIUM 1 GM VIAL ONE (09:14)
[2021-07-21] MEDS ORDERED: DEXTROSE 5%-WATER - 50 ML IVPB ONE (09:14)
[2021-07-21] MEDS ORDERED: methaDONE HCL 10 MG TABLET ONE ×2 (09:14→09:38)
[2021-07-21] MEDS ORDERED: methaDONE 40 MG, methaDONE 10 MG PO ONE (09:30)
[2021-07-21] MEDS: BUDESONIDE/FORMETEROL FUMARATE 80/4.5 mcg INHALER IH SCH ×2 (09:40→22:07)
[2021-07-21] MEDS: ASPIRIN 81 MG CHEWABLE TABLETS PO SCH (09:44)
[2021-07-21] MEDS: PANTOPRAZOLE 40 MG TABLET PO SCH (09:44)
[2021-07-21] MEDS: LORATADINE 10 MG TABLET PO SCH (09:44)
[2021-07-21] MEDS: CLOPIDOGREL BISULFATE 75 MG TABLET (FP) PO SCH (09:44)
[2021-07-21] MEDS: CEFTRIAXONE 1 GM in DEXTROSE 5%-WATER - 50 ML IVPB SCH (09:44)
[2021-07-21] MEDS: LOSARTAN POTASSIUM 50 MG TABLET PO SCH (09:44)
[2021-07-21] MEDS: amLODIPine BESYLATE 10 MG TABLET (FP) PO SCH (09:44)
[2021-07-21] MEDS ORDERED: FUROSEMIDE 40 MG TABLET (FP) PO PRN (10:00)
[2021-07-21] MEDS: VENLAFAXINE HCL 75 MG E.R. CAPSULES PO SCH (11:03)
[2021-07-21] MEDS: ACETAMINOPHEN 650 MG/20.3 ML ORAL SOLUTION (CUPS) PO PRN ×2 (11:13→19:45)
[2021-07-21] MEDS: AZITHROMYCIN IVPB 500 MG/250 ML BAG IVPB SCH (20:44)
[2021-07-21] MEDS ORDERED: traZODone HCL 50 MG TABLET (FP) ONE (22:00)
[2021-07-21] MEDS: traZODone HCL 100 MG TABLET (FP) PO SCH (22:05)
[2021-07-22] MEDS: ACETAMINOPHEN 650 MG/20.3 ML ORAL SOLUTION (CUPS) PO PRN (04:41)
[2021-07-22] MEDS ORDERED: methaDONE HCL 40 MG DISPERSABLE TABLET ONE (05:37)
[2021-07-22] MEDS: DOCUSATE SODIUM 100 MG CAPSULE (FP) PO SCH ×3 (06:07→22:27)
[2021-07-22] MEDS: LEVOTHYROXINE NA 200 MCG TABLET PO SCH (06:09)
[2021-07-22] MEDS ORDERED: DEXTROSE 5%-WATER - 50 ML IVPB ONE (09:29)
[2021-07-22] MEDS ORDERED: cefTRIAXone SODIUM 1 GM VIAL ONE (09:29)
[2021-07-22] MEDS: BUDESONIDE/FORMETEROL FUMARATE 80/4.5 mcg INHALER IH SCH ×2 (09:34→22:21)
[2021-07-22] MEDS: LOSARTAN POTASSIUM 50 MG TABLET PO SCH (09:35)
[2021-07-22] MEDS: VENLAFAXINE HCL 75 MG E.R. CAPSULES PO SCH (09:35)
[2021-07-22] MEDS: PANTOPRAZOLE 40 MG TABLET PO SCH (09:35)
[2021-07-22] MEDS: CEFTRIAXONE 1 GM in DEXTROSE 5%-WATER - 50 ML IVPB SCH (09:35)
[2021-07-22] MEDS: GABAPENTIN 100 MG CAPSULE PO SCH ×2 (09:36→22:27)
[2021-07-22] MEDS: CLOPIDOGREL BISULFATE 75 MG TABLET (FP) PO SCH (09:36)
[2021-07-22] MEDS: METOPROLOL TARTRATE 25 MG TABLET (FP) PO SCH ×2 (09:36→22:27)
[2021-07-22] MEDS: ASPIRIN 81 MG CHEWABLE TABLETS PO SCH (09:36)
[2021-07-22] MEDS: amLODIPine BESYLATE 10 MG TABLET (FP) PO SCH (09:36)
[2021-07-22] MEDS: LORATADINE 10 MG TABLET PO SCH (09:36)
[2021-07-22] MEDS ORDERED: methaDONE HCL 10 MG TABLET (FOR DETOX USE ONLY) PO SCH (10:00)
[2021-07-22] MEDS: ACETAMINOPHEN 1000 MG/100 ML BAG IVPB PRN ×2 (12:42→20:21)
[2021-07-22] MEDS: AZITHROMYCIN IVPB 500 MG/250 ML BAG IVPB SCH (20:26)
[2021-07-22] MEDS ORDERED: traZODone HCL 50 MG TABLET (FP) ONE (21:26)
[2021-07-22] MEDS: traZODone HCL 100 MG TABLET (FP) PO SCH (22:26)
[2021-07-23] MEDS ORDERED: methaDONE HCL 40 MG DISPERSABLE TABLET ONE (06:05)
[2021-07-23] MEDS: LEVOTHYROXINE NA 200 MCG TABLET PO SCH (06:15)
[2021-07-23] MEDS: DOCUSATE SODIUM 100 MG CAPSULE (FP) PO SCH ×3 (06:15→22:32)
[2021-07-23] MEDS: ACETAMINOPHEN 1000 MG/100 ML BAG IVPB PRN (06:20)
[2021-07-23] MEDS ORDERED: cefTRIAXone SODIUM 1 GM VIAL ONE (09:19)
[2021-07-23] MEDS: CEFTRIAXONE 1 GM in DEXTROSE 5%-WATER - 50 ML IVPB SCH (09:33)
[2021-07-23] MEDS: METOPROLOL TARTRATE 25 MG TABLET (FP) PO SCH ×2 (09:34→22:32)
[2021-07-23] MEDS: CLOPIDOGREL BISULFATE 75 MG TABLET (FP) PO SCH (09:34)
[2021-07-23] MEDS: GABAPENTIN 100 MG CAPSULE PO SCH ×2 (09:34→22:32)
[2021-07-23] MEDS: ASPIRIN 81 MG CHEWABLE TABLETS PO SCH (09:34)
[2021-07-23] MEDS: LOSARTAN POTASSIUM 50 MG TABLET PO SCH (09:34)
[2021-07-23] MEDS: LORATADINE 10 MG TABLET PO SCH (09:34)
[2021-07-23] MEDS: amLODIPine BESYLATE 10 MG TABLET (FP) PO SCH (09:34)
[2021-07-23] MEDS: PANTOPRAZOLE 40 MG TABLET PO SCH (09:34)
[2021-07-23] MEDS: VENLAFAXINE HCL 75 MG E.R. CAPSULES PO SCH (09:36)
[2021-07-23] MEDS: BUDESONIDE/FORMETEROL FUMARATE 80/4.5 mcg INHALER IH SCH ×3 (09:37→22:32)
[2021-07-23] MEDS: ALBUTEROL SO4 2.5/IPRATROPIUM 0.5 INH SOL 3 ML VIAL.NEB. NEB SCH ×2 (14:45→20:32)
[2021-07-23] MEDS: AZITHROMYCIN IVPB 500 MG/250 ML BAG IVPB SCH (20:56)
[2021-07-23] MEDS ORDERED: traZODone HCL 50 MG TABLET (FP) ONE (22:01)
[2021-07-23] MEDS: traZODone HCL 100 MG TABLET (FP) PO SCH (22:32)
[2021-07-23] MEDS ORDERED: ACETAMINOPHEN 1000 MG/100 ML BAG IVPB ONE (22:37)
[2021-07-24] MEDS ORDERED: ACETAMINOPHEN 1000 MG/100 ML BAG IVPB ONE ×2 (04:49→21:22)
[2021-07-24] MEDS ORDERED: methaDONE HCL 40 MG DISPERSABLE TABLET ONE (05:53)
[2021-07-24] MEDS: LEVOTHYROXINE NA 200 MCG TABLET PO SCH (06:19)
[2021-07-24] MEDS: DOCUSATE SODIUM 100 MG CAPSULE (FP) PO SCH ×3 (06:19→21:40)
[2021-07-24] MEDS: ALBUTEROL SO4 2.5/IPRATROPIUM 0.5 INH SOL 3 ML VIAL.NEB. NEB SCH ×3 (08:40→20:00)
[2021-07-24] MEDS ORDERED: DEXTROSE 5%-WATER - 50 ML IVPB ONE (09:15)
[2021-07-24] MEDS ORDERED: cefTRIAXone SODIUM 1 GM VIAL ONE (09:15)
[2021-07-24] MEDS: amLODIPine BESYLATE 10 MG TABLET (FP) PO SCH (09:29)
[2021-07-24] MEDS: LORATADINE 10 MG TABLET PO SCH (09:29)
[2021-07-24] MEDS: METOPROLOL TARTRATE 25 MG TABLET (FP) PO SCH ×2 (09:29→21:41)
[2021-07-24] MEDS: PANTOPRAZOLE 40 MG TABLET PO SCH (09:29)
[2021-07-24] MEDS: GABAPENTIN 100 MG CAPSULE PO SCH ×2 (09:29→21:41)
[2021-07-24] MEDS: CLOPIDOGREL BISULFATE 75 MG TABLET (FP) PO SCH (09:29)
[2021-07-24] MEDS: CEFTRIAXONE 1 GM in DEXTROSE 5%-WATER - 50 ML IVPB SCH (09:29)
[2021-07-24] MEDS: LOSARTAN POTASSIUM 50 MG TABLET PO SCH (09:29)
[2021-07-24] MEDS: ASPIRIN 81 MG CHEWABLE TABLETS PO SCH (09:29)
[2021-07-24] MEDS: BUDESONIDE/FORMETEROL FUMARATE 80/4.5 mcg INHALER IH SCH ×2 (09:30→21:51)
[2021-07-24] MEDS: VENLAFAXINE HCL 75 MG E.R. CAPSULES PO SCH (09:30)
[2021-07-24] MEDS: ACETAMINOPHEN 650 MG/20.3 ML ORAL SOLUTION (CUPS) PO PRN (10:52)
[2021-07-24] MEDS: IBUPROFEN 400 MG TABLET (FP) PO PRN (11:08)
[2021-07-24] MEDS ORDERED: traZODone HCL 50 MG TABLET (FP) ONE (19:53)
[2021-07-24] MEDS: AZITHROMYCIN IVPB 500 MG/250 ML BAG IVPB SCH (20:45)
[2021-07-24] MEDS: traZODone HCL 100 MG TABLET (FP) PO SCH (21:40)
[2021-07-25] MEDS ORDERED: methaDONE HCL 40 MG DISPERSABLE TABLET ONE (04:28)
[2021-07-25] MEDS: DOCUSATE SODIUM 100 MG CAPSULE (FP) PO SCH ×3 (05:23→21:04)
[2021-07-25] MEDS: ACETAMINOPHEN 650 MG/20.3 ML ORAL SOLUTION (CUPS) PO PRN (05:30)
[2021-07-25] MEDS: LEVOTHYROXINE NA 200 MCG TABLET PO SCH (06:25)
[2021-07-25] MEDS: ALBUTEROL SO4 2.5/IPRATROPIUM 0.5 INH SOL 3 ML VIAL.NEB. NEB SCH ×3 (08:25→20:40)
[2021-07-25] MEDS ORDERED: cefTRIAXone SODIUM 1 GM VIAL ONE (10:55)
[2021-07-25] MEDS ORDERED: DEXTROSE 5%-WATER - 50 ML IVPB ONE (10:56)
[2021-07-25] MEDS: amLODIPine BESYLATE 10 MG TABLET (FP) PO SCH (11:03)
[2021-07-25] MEDS: CEFTRIAXONE 1 GM in DEXTROSE 5%-WATER - 50 ML IVPB SCH (11:03)
[2021-07-25] MEDS: VENLAFAXINE HCL 75 MG E.R. CAPSULES PO SCH (11:04)
[2021-07-25] MEDS: GABAPENTIN 100 MG CAPSULE PO SCH ×2 (11:04→21:04)
[2021-07-25] MEDS: LOSARTAN POTASSIUM 50 MG TABLET PO SCH (11:04)
[2021-07-25] MEDS: ASPIRIN 81 MG CHEWABLE TABLETS PO SCH (11:04)
[2021-07-25] MEDS: CLOPIDOGREL BISULFATE 75 MG TABLET (FP) PO SCH (11:04)
[2021-07-25] MEDS: METOPROLOL TARTRATE 25 MG TABLET (FP) PO SCH ×2 (11:04→21:04)
[2021-07-25] MEDS: LORATADINE 10 MG TABLET PO SCH (11:04)
[2021-07-25] MEDS: PANTOPRAZOLE 40 MG TABLET PO SCH (11:04)
[2021-07-25] MEDS: BUDESONIDE/FORMETEROL FUMARATE 80/4.5 mcg INHALER IH SCH ×2 (11:05→21:05)
[2021-07-25] MEDS: IBUPROFEN 400 MG TABLET (FP) PO PRN (14:13)
[2021-07-25] MEDS ORDERED: traZODone HCL 50 MG TABLET (FP) ONE (19:48)
[2021-07-25] MEDS: AZITHROMYCIN IVPB 500 MG/250 ML BAG IVPB SCH ×2 (20:03→22:46)
[2021-07-25] MEDS: ACETAMINOPHEN 1000 MG/100 ML BAG IVPB ONE ×2 (21:03→22:46)
[2021-07-25] MEDS: traZODone HCL 100 MG TABLET (FP) PO SCH (21:04)
[2021-07-25] MEDS ORDERED: AZITHROMYCIN 250 MG TABLET PO ONE (22:46)
[2021-07-25] MEDS ORDERED: IBUPROFEN 400 MG TABLET (FP) PO ONE (23:36)
[2021-07-26] MEDS ORDERED: methaDONE HCL 40 MG DISPERSABLE TABLET ONE (04:23)
[2021-07-26] MEDS: DOCUSATE SODIUM 100 MG CAPSULE (FP) PO SCH ×2 (05:37→14:10)
[2021-07-26] MEDS: LEVOTHYROXINE NA 200 MCG TABLET PO SCH (06:11)
[2021-07-26] MEDS: ACETAMINOPHEN 650 MG/20.3 ML ORAL SOLUTION (CUPS) PO PRN (06:38)
[2021-07-26] MEDS: ALBUTEROL SO4 2.5/IPRATROPIUM 0.5 INH SOL 3 ML VIAL.NEB. NEB SCH ×2 (07:25→14:48)
[2021-07-26] MEDS ORDERED: cefTRIAXone SODIUM 1 GM VIAL ONE (08:15)
[2021-07-26] MEDS ORDERED: DEXTROSE 5%-WATER - 50 ML IVPB ONE (08:15)
[2021-07-26] MEDS: ASPIRIN 81 MG CHEWABLE TABLETS PO SCH (09:34)
[2021-07-26] MEDS: PANTOPRAZOLE 40 MG TABLET PO SCH (09:34)
[2021-07-26] MEDS: CLOPIDOGREL BISULFATE 75 MG TABLET (FP) PO SCH (09:34)
[2021-07-26] MEDS: METOPROLOL TARTRATE 25 MG TABLET (FP) PO SCH (09:34)
[2021-07-26] MEDS: LOSARTAN POTASSIUM 50 MG TABLET PO SCH (09:34)
[2021-07-26] MEDS: amLODIPine BESYLATE 10 MG TABLET (FP) PO SCH (09:35)
[2021-07-26] MEDS: LORATADINE 10 MG TABLET PO SCH (09:35)
[2021-07-26] MEDS: VENLAFAXINE HCL 75 MG E.R. CAPSULES PO SCH (09:35)
[2021-07-26] MEDS: GABAPENTIN 100 MG CAPSULE PO SCH (09:35)
[2021-07-26] MEDS: BUDESONIDE/FORMETEROL FUMARATE 80/4.5 mcg INHALER IH SCH (09:36)
[2021-07-26] MEDS: CEFTRIAXONE 1 GM in DEXTROSE 5%-WATER - 50 ML IVPB SCH (11:34)
[2021-07-26] MEDS ORDERED: CEFUROXIME AXETIL 500 MG TABLET PO SCH (12:15)
[2021-07-26 12:47] VITALS: BP 150/74; PULSE 78; TEMP 98.2
[2021-07-26 14:09] LABS: SARS-CoV-2 NAA Not Detected (Not Detected)
[2021-07-27] MEDS ORDERED: PANTOPRAZOLE 40 MG TABLET PO SCH (07:00)
== END 2021-07-26 16:47 | disposition home or self-care (01) | DRG 190 ==
LOC: JER 08:10 → JERBED 18:22 → J4W 07-21 01:13
PROVIDERS: ADMIT Hospitalist; ATTEND Internal Medicine
DX: J44.0 Chronic obstructive pulmonary disease with (acute) lower respiratory infection (principal); J18.9 Pneumonia, unspecified organism; J90 Pleural effusion, not elsewhere classified; E87.2 Acidosis; I50.22 Chronic systolic (congestive) heart failure; F11.20 Opioid dependence, uncomplicated; J98.11 Atelectasis; J44.1 Chronic obstructive pulmonary disease with (acute) exacerbation; I25.10 Atherosclerotic heart disease of native coronary artery without angina pectoris; I25.2 Old myocardial infarction; G62.9 Polyneuropathy, unspecified; E03.9 Hypothyroidism, unspecified; F51.04 Psychophysiologic insomnia; F32.A Depression, unspecified; I11.0 Hypertensive heart disease with heart failure; I48.0 Paroxysmal atrial fibrillation; I73.9 Peripheral vascular disease, unspecified; I34.0 Nonrheumatic mitral (valve) insufficiency; R50.9 Fever, unspecified; K21.9 Gastro-esophageal reflux disease without esophagitis; Z96.641 Presence of right artificial hip joint; Z85.118 Personal history of other malignant neoplasm of bronchus and lung
CPT/HCPCS: 36415; 36600; 71045-TC-FY; 71275-TC; 80048; 80053; 80061; 81003; 82553; 82803; 83036; 83605; 83735; 84439; 84443; 84484; 85025; 85610; 85730; 86850; 86900; 86901; 87040; 87070; 87086; 87205; 87651; 93005; 93010; 94640; 94660; 97116-GP; 97161-GP; 99285-25; C9803-CS; Q9967; U0003; U0005

== ENCOUNTER 2021-12-31 14:01 | Emergency (ER) | payer OTHER ==
[2021-12-31 14:31] VITALS: PULSE 81; TEMP 98.6; BMI 30.4
[2021-12-31 16:26] LABS: PH,URINE 6.5 (5.0-8.0); URINE APPEARANCE CLEAR; URINE BILIRUBIN NEGATIVE (NEGATIVE); URINE COLOR YELLOW; URINE GLUCOSE (UA) NEGATIVE (NEGATIVE); URINE KETONE NEGATIVE (NEGATIVE); URINE LEUK ESTERASE NEGATIVE (NEGATIVE); URINE NITRITE NEGATIVE (NEGATIVE); URINE PROTEIN NEGATIVE (NEGATIVE); URINE UROBILINOGEN 0.2 mg/dL (0.2-1.0)
[2021-12-31 17:32] LABS: BASO % 0.5 % (0-2.0); EOS % 1.3 % (0-4.5); HEMATOCRIT 35.2 % (32.4-45.2); HEMOGLOBIN 11.3 GM/dL (10.7-15.3); LYMPH % 9.1 % (8-40); MCH 28.9 pg (25.7-33.7); MCHC 32.2 g/dl (32.0-36.0); MEAN CELL VOLUME 89.9 fl (80-96); MEAN PLT VOLUME 7.8 fl (7.5-11.1); MONO % 5.6 % (3.8-10.2); NEUT % 83.5 % (42.8-82.8); PLATELET COUNT 242 10^3/uL (134-434); RBC 3.92 M/mm3 (3.60-5.2); RDW 16.2 % (11.6-15.6); WHITE BLOOD COUNT 8.9 K/mm3 (4.0-10.0)
[2021-12-31 17:55] LABS: CALCIUM 8.7 mg/dL (8.5-10.1)
[2021-12-31 17:56] LABS: ALBUMIN 3.2 g/dl (3.4-5.0); BLOOD UREA NITROGEN 13.2 mg/dL (7-18); MAGNESIUM 2.1 mg/dL (1.8-2.4)
[2021-12-31 17:59] LABS: CREATININE 0.8 mg/dL (0.55-1.3); PHOSPHOROUS 2.9 mg/dL (2.5-4.9)
[2021-12-31 18:00] LABS: BILIRUBIN,TOTAL 0.3 mg/dL (0.2-1); TOT PROT 6.6 g/dl (6.4-8.2)
[2021-12-31] MEDS ORDERED: METHOCARBAMOL 500 MG TABLET PO ONE (19:04)
[2021-12-31] MEDS ORDERED: METHOCARBAMOL 500 MG TABLET ONE (19:11)
[2021-12-31 19:20] VITALS: BP 172/88; RESP 59
== END 2021-12-31 19:32 | disposition home or self-care (01) ==
LOC: JER 14:01
DX: E05.90 Thyrotoxicosis, unspecified without thyrotoxic crisis or storm (principal)
CPT/HCPCS: 36415; 70450-TC; 71046-TC-FY; 80053; 81003; 83735; 84100; 84443; 84484; 85025; 93005; 93010; 99285-25; C9803-CS; U0003; U0005

== ENCOUNTER 2022-02-03 11:58 | Observation (INO) | payer OTHER ==
[2022-02-03 12:05] VITALS: BMI 30.6
[2022-02-03 16:01] LABS: PH,URINE 6.5 (5.0-8.0); URINE APPEARANCE CLEAR; URINE BILIRUBIN NEGATIVE (NEGATIVE); URINE COLOR YELLOW; URINE GLUCOSE (UA) NEGATIVE (NEGATIVE); URINE KETONE NEGATIVE (NEGATIVE); URINE LEUK ESTERASE NEGATIVE (NEGATIVE); URINE NITRITE NEGATIVE (NEGATIVE); URINE PROTEIN NEGATIVE (NEGATIVE); URINE UROBILINOGEN 0.2 mg/dL (0.2-1.0)
[2022-02-03 16:20] LABS: BASO % 0.7 % (0-2.0); EOS % 5.2 % (0-4.5); HEMATOCRIT 33.4 % (32.4-45.2); HEMOGLOBIN 10.8 GM/dL (10.7-15.3); LYMPH % 25.9 % (8-40); MCH 29.6 pg (25.7-33.7); MCHC 32.3 g/dl (32.0-36.0); MEAN CELL VOLUME 91.8 fl (80-96); MEAN PLT VOLUME 8.8 fl (7.5-11.1); MONO % 6.7 % (3.8-10.2); NEUT % 61.5 % (42.8-82.8); PLATELET COUNT 237 10^3/uL (134-434); RBC 3.64 M/mm3 (3.60-5.2); RDW 17.6 % (11.6-15.6); WHITE BLOOD COUNT 7.4 K/mm3 (4.0-10.0)
[2022-02-03 16:37] LABS: ALBUMIN 3.2 g/dl (3.4-5.0); BLOOD UREA NITROGEN 13.5 mg/dL (7-18); CALCIUM 8.4 mg/dL (8.5-10.1)
[2022-02-03 16:40] LABS: CREATININE 0.9 mg/dL (0.55-1.3)
[2022-02-03 16:42] LABS: BILIRUBIN,TOTAL 0.2 mg/dL (0.2-1); TOT PROT 6.6 g/dl (6.4-8.2)
[2022-02-03] MEDS ORDERED: MAG HYDROX/AL HYDROX/SIMETH 30 ML UNIT-DOSE CUP PO ONE (20:25)
[2022-02-03] MEDS ORDERED: FAMOTIDINE 20 MG/50 ML IVPB 20 MG/50 ML MG IVPB ONE ×2 (20:31→20:38)
[2022-02-03] MEDS ORDERED: LIDOCAINE VISCOUS 2% ORAL/TOP 15 ML UNIT-DOSE CUP MM ONE (20:31)
[2022-02-03] MEDS ORDERED: LIDOCAINE VISCOUS 2% ORAL/TOP 15 ML UNIT-DOSE CUP ONE (20:38)
[2022-02-03] MEDS ORDERED: MAG HYDROX/AL HYDROX/SIMETH 30 ML UNIT-DOSE CUP ONE (20:38)
[2022-02-03] MEDS ORDERED: ALBUTEROL SO4 0.083% IH SOL 2.5 MG/3 ML VIAL.NEB. NEB SCH (22:15)
[2022-02-03] MEDS ORDERED: METOPROLOL TARTRATE 25 MG TABLET (FP) PO SCH (22:15)
[2022-02-03] MEDS ORDERED: ALBUTEROL SO4 2.5/IPRATROPIUM 0.5 INH SOL 3 ML VIAL.NEB. NEB PRN (22:17)
[2022-02-03] MEDS ORDERED: PROCHLORPERAZINE MALEATE 5 MG TABLET PO PRN (22:18)
[2022-02-03] MEDS ORDERED: hydrALAZINE HCL 50 MG TABLET (FP) PO PRN (22:25)
[2022-02-03] MEDS ORDERED: ALBUTEROL SO4 0.083% IH SOL 2.5 MG/3 ML VIAL.NEB. NEB PRN (22:41)
[2022-02-03] MEDS ORDERED: METOPROLOL TARTRATE 25 MG TABLET (FP) ONE (23:13)
[2022-02-03] MEDS ORDERED: traZODone HCL 150 MG TABLET PO ONE ×2 (23:13→23:30)
[2022-02-03] MEDS ORDERED: DOCUSATE SODIUM 100 MG CAPSULE (FP) PO ONE (23:14)
[2022-02-03] MEDS: DOCUSATE SODIUM 100 MG CAPSULE (FP) PO SCH (23:18)
[2022-02-03] MEDS ORDERED: traZODone HCL 100 MG TABLET (FP) PO ONE (23:30)
[2022-02-04] MEDS ORDERED: FLUTICASONE PROP 0.05% 16 GM NASAL SPRAY NS PRN (02:20)
[2022-02-04 02:33] VITALS: TEMP 97.6
[2022-02-04] MEDS ORDERED: DOCUSATE SODIUM 100 MG CAPSULE (FP) PO ONE (06:05)
[2022-02-04] MEDS ORDERED: LEVOTHYROXINE NA 25 MCG TABLET (FP) ONE (06:05)
[2022-02-04] MEDS ORDERED: LEVOTHYROXINE NA 50 MCG TABLET (FP) ONE ×2 (06:06→06:07)
[2022-02-04] MEDS: DOCUSATE SODIUM 100 MG CAPSULE (FP) PO SCH (06:13)
[2022-02-04 06:50] VITALS: BP 149/66; PULSE 58; RESP 20
[2022-02-04] MEDS ORDERED: LEVOTHYROXINE 100 MCG, LEVOTHYROXINE 75 MCG PO SCH (07:00)
[2022-02-04 08:30] LABS: BASO % 0.5 % (0-2.0); EOS % 3.8 % (0-4.5); HEMOGLOBIN 11.6 GM/dL (10.7-15.3); MCH 30.3 pg (25.7-33.7); MEAN CELL VOLUME 91.8 fl (80-96); MEAN PLT VOLUME 8.2 fl (7.5-11.1); MONO % 6.9 % (3.8-10.2); NEUT % 68.8 % (42.8-82.8); PLATELET COUNT 215 10^3/uL (134-434); RBC 3.81 M/mm3 (3.60-5.2); RDW 17.7 % (11.6-15.6); WHITE BLOOD COUNT 9.4 K/mm3 (4.0-10.0)
[2022-02-04 08:41] LABS: INR 1.03 (0.83-1.09); PROTHROMBIN TIME (PATIENT) 11.8 SEC (9.7-13.0)
[2022-02-04 08:43] LABS: ACTIVATED PTT 27.6 SECONDS (25.2-36.5)
[2022-02-04 08:51] LABS: CALCIUM 8.7 mg/dL (8.5-10.1)
[2022-02-04 08:52] LABS: BLOOD UREA NITROGEN 10.9 mg/dL (7-18)
[2022-02-04 08:56] LABS: CREATININE 0.8 mg/dL (0.55-1.3)
[2022-02-04] MEDS ORDERED: valACYclovir HCL 500 MG TABLET (FP) ONE (09:55)
[2022-02-04] MEDS ORDERED: PANTOPRAZOLE 40 MG TABLET PO ONE (09:55)
[2022-02-04] MEDS ORDERED: amLODIPine BESYLATE 10 MG TABLET (FP) ONE (09:55)
[2022-02-04] MEDS ORDERED: ALBUTEROL SO4 HFA INHALER IH ONE (09:56)
[2022-02-04] MEDS ORDERED: ASPIRIN 81 MG CHEWABLE TABLETS ONE (09:56)
[2022-02-04] MEDS ORDERED: CLOPIDOGREL BISULFATE 75 MG TABLET (FP) ONE (09:56)
[2022-02-04] MEDS ORDERED: MULTIVITAMINS (DAILY MVI) TABLET (FP) ONE (09:57)
[2022-02-04] MEDS ORDERED: FLUTICASONE/UMECLIDIN/VILANTER(200-62.5-25 TRELEGY ELLIPTA) INAHLER IH SCH (10:00)
[2022-02-04] MEDS ORDERED: MULTIVITAMINS (DAILY MVI) TABLET (FP) PO SCH (10:00)
[2022-02-04] MEDS ORDERED: ALBUTEROL SO4 HFA INHALER IH SCH (10:00)
[2022-02-04] MEDS ORDERED: PANTOPRAZOLE 40 MG TABLET PO SCH (10:00)
[2022-02-04] MEDS ORDERED: VENLAFAXINE HCL 75 MG E.R. CAPSULES PO SCH (10:00)
[2022-02-04] MEDS ORDERED: amLODIPine BESYLATE 10 MG TABLET (FP) PO SCH (10:00)
[2022-02-04] MEDS ORDERED: FLUOCINONIDE 0.05% TOP OINT (60 GM TUBE) TP SCH (10:00)
[2022-02-04] MEDS ORDERED: CLOPIDOGREL BISULFATE 75 MG TABLET (FP) PO SCH (10:00)
[2022-02-04] MEDS ORDERED: ASPIRIN 81 MG CHEWABLE TABLETS PO SCH (10:00)
[2022-02-04] MEDS ORDERED: FUROSEMIDE 40 MG TABLET (FP) PO PRN (10:00)
[2022-02-04] MEDS ORDERED: LEVOTHYROXINE NA 150 MCG TABLET PO SCH (10:00)
[2022-02-04] MEDS ORDERED: valACYclovir HCL 500 MG TABLET (FP) PO SCH (10:00)
[2022-02-04] MEDS ORDERED: methaDONE HCL 10 MG TABLET (FOR DETOX USE ONLY) PO ONE (10:11)
[2022-02-04] MEDS ORDERED: ATORVASTATIN CA 80 MG TABLET (FP) PO SCH (22:00)
[2022-02-04] MEDS ORDERED: traZODone HCL 100 MG TABLET (FP) PO SCH (22:00)
[2022-02-08] MEDS ORDERED: ERGOCALCIFEROL (VIT D2) 50,000 UNIT (1.25 MG) CAPSULE PO SCH (10:00)
== END 2022-02-04 10:23 | disposition left against medical advice (07) ==
LOC: JER 11:58 → JERFT 11:58 → JERBED 15:06
PROVIDERS: ADMIT Internal Medicine; ATTEND Nurse Practitioner Family
PROC: 3E033GC Introduction of Other Therapeutic Substance into Peripheral Vein, Percutaneous Approach (ICD-10-PCS; principal; 2022-02-03)
DX: I25.10 Atherosclerotic heart disease of native coronary artery without angina pectoris (principal); I11.9 Hypertensive heart disease without heart failure; E03.9 Hypothyroidism, unspecified; J44.9 Chronic obstructive pulmonary disease, unspecified; F11.20 Opioid dependence, uncomplicated; E55.9 Vitamin D deficiency, unspecified; Z87.898 Personal history of other specified conditions; Z86.59 Personal history of other mental and behavioral disorders; F32.A Depression, unspecified
CPT/HCPCS: 36415; 71045-TC-FY; 76937; 80048; 80053; 81003; 84443; 84484; 85025; 85610; 85730; 87086; 93005; 93010; 96365; 99285-25; C9803-CS; G0378; U0003; U0005

== ENCOUNTER 2022-05-08 20:20 | Inpatient (IN) | payer OTHER ==
[2022-05-08 21:32] LABS: BASO % 0.1 % (0-2.0); EOS % 0.4 % (0-4.5); HEMATOCRIT 38.2 % (32.4-45.2); HEMOGLOBIN 12.2 GM/dL (10.7-15.3); LYMPH % 7.8 % (8-40); MCH 29.6 pg (25.7-33.7); MEAN CELL VOLUME 92.4 fl (80-96); MEAN PLT VOLUME 8.1 fl (7.5-11.1); MONO % 7.9 % (3.8-10.2); NEUT % 83.8 % (42.8-82.8); PLATELET COUNT 236 10^3/uL (134-434); RBC 4.13 M/mm3 (3.60-5.2); RDW 16.3 % (11.6-15.6); WHITE BLOOD COUNT 14.3 K/mm3 (4.0-10.0)
[2022-05-08 21:38] LABS: INR 1.04 (0.83-1.09); PROTHROMBIN TIME (PATIENT) 12.1 SEC (9.7-13.0)
[2022-05-08 21:40] LABS: ACTIVATED PTT 24.9 SECONDS (25.2-36.5)
[2022-05-08 21:46] LABS: ALBUMIN 3.4 g/dl (3.4-5.0)
[2022-05-08 21:48] LABS: BLOOD UREA NITROGEN 15.1 mg/dL (7-18)
[2022-05-08 21:49] LABS: CREATININE 0.9 mg/dL (0.55-1.3)
[2022-05-08 21:52] LABS: BILIRUBIN,TOTAL 0.5 mg/dL (0.2-1)
[2022-05-09] MEDS ORDERED: ACETAMINOPHEN INJECTION 100 ML IVPB ONE (00:36)
[2022-05-09 01:39] LABS: PH,URINE 6.5 (5.0-8.0); URINE APPEARANCE CLEAR; URINE BILIRUBIN NEGATIVE (NEGATIVE); URINE COLOR YELLOW; URINE GLUCOSE (UA) NEGATIVE (NEGATIVE); URINE KETONE NEGATIVE (NEGATIVE); URINE LEUK ESTERASE NEGATIVE (NEGATIVE); URINE NITRITE NEGATIVE (NEGATIVE); URINE PROTEIN TRACE (NEGATIVE); URINE UROBILINOGEN 0.2 mg/dL (0.2-1.0)
[2022-05-09] MEDS ORDERED: POLYETHYLENE GLYCOL (HEALTHYLAX) 3350 17 GM PACKET PO ONE (02:00)
[2022-05-09] MEDS ORDERED: POLYETHYLENE GLYCOL (HEALTHYLAX) 3350 17 GM PACKET ONE ×2 (02:45→06:36)
[2022-05-09] MEDS ORDERED: BISACODYL 10 MG SUPP.RECT PR PRN (03:57)
[2022-05-09] MEDS ORDERED: KETOROLAC TROMETHAMINE 15 MG/ML VIAL IVPUSH ONE (04:11)
[2022-05-09] MEDS ORDERED: KETOROLAC TROMETHAMINE 15 MG/ML VIAL ONE (04:11)
[2022-05-09] MEDS ORDERED: FUROSEMIDE 40 MG TABLET (FP) PO PRN (04:46)
[2022-05-09] MEDS ORDERED: PROCHLORPERAZINE MALEATE 5 MG TABLET PO PRN (05:11)
[2022-05-09] MEDS ORDERED: methaDONE HCL 10 MG TABLET PO ONE (06:26)
[2022-05-09] MEDS ORDERED: LEVOTHYROXINE NA 75 MCG TABLET (FP) ONE (06:36)
[2022-05-09] MEDS ORDERED: LEVOTHYROXINE NA 50 MCG TABLET (FP) ONE (06:37)
[2022-05-09] MEDS: POLYETHYLENE GLYCOL (HEALTHYLAX) 3350 17 GM PACKET PO SCH ×3 (06:50→21:22)
[2022-05-09] MEDS: LEVOTHYROXINE 100 MCG, LEVOTHYROXINE 75 MCG PO SCH (06:50)
[2022-05-09] MEDS ORDERED: methaDONE HCL 40 MG DISPERSABLE TABLET PO SCH ×3 (06:53→10:00)
[2022-05-09] MEDS: methaDONE HCL 40 MG DISPERSABLE TABLET PO SCH (07:18)
[2022-05-09 08:04] LABS: ALBUMIN 3.1 g/dl (3.4-5.0); BLOOD UREA NITROGEN 14.2 mg/dL (7-18)
[2022-05-09 08:07] LABS: CALCIUM 8.3 mg/dL (8.5-10.1)
[2022-05-09 08:08] LABS: BILIRUBIN,TOTAL 0.5 mg/dL (0.2-1); CREATININE 0.8 mg/dL (0.55-1.3); PHOSPHOROUS 3.3 mg/dL (2.5-4.9); TOT PROT 6.4 g/dl (6.4-8.2)
[2022-05-09 08:13] LABS: BASO % 0.1 % (0-2.0); EOS % 0.4 % (0-4.5); HEMATOCRIT 34.1 % (32.4-45.2); HEMOGLOBIN 11.1 GM/dL (10.7-15.3); LYMPH % 9.9 % (8-40); MCH 29.9 pg (25.7-33.7); MCHC 32.5 g/dl (32.0-36.0); MEAN CELL VOLUME 91.9 fl (80-96); MEAN PLT VOLUME 8.6 fl (7.5-11.1); MONO % 7.8 % (3.8-10.2); NEUT % 81.8 % (42.8-82.8); PLATELET COUNT 239 10^3/uL (134-434); RBC 3.71 M/mm3 (3.60-5.2); RDW 15.8 % (11.6-15.6); WHITE BLOOD COUNT 13.7 K/mm3 (4.0-10.0)
[2022-05-09] MEDS ORDERED: ALBUTEROL SO4 0.083% IH SOL 2.5 MG/3 ML VIAL.NEB. NEB ONE (08:17)
[2022-05-09] MEDS: ALBUTEROL SO4 0.083% IH SOL 2.5 MG/3 ML VIAL.NEB. NEB SCH ×4 (08:31→19:55)
[2022-05-09] MEDS ORDERED: LEVOTHYROXINE NA 150 MCG TABLET PO SCH (10:00)
[2022-05-09] MEDS: ENOXAPARIN NA (PORCINE) 40 MG/0.4 ML DISP.SYRIN SQ SCH (10:02)
[2022-05-09] MEDS: PANTOPRAZOLE 40 MG TABLET PO SCH (10:02)
[2022-05-09] MEDS: LOSARTAN POTASSIUM 50 MG TABLET PO SCH (10:02)
[2022-05-09] MEDS: ASPIRIN 81 MG CHEWABLE TABLETS PO SCH (10:02)
[2022-05-09] MEDS: CLOPIDOGREL BISULFATE 75 MG TABLET (FP) PO SCH (10:02)
[2022-05-09] MEDS: amLODIPine BESYLATE 5 MG TABLET (FP) PO SCH (10:02)
[2022-05-09] MEDS: MAGNESIUM OXIDE 400 MG TABLET (FP) PO SCH ×2 (10:02→21:28)
[2022-05-09] MEDS: MULTIVITAMINS (DAILY MVI) TABLET (FP) PO SCH (10:02)
[2022-05-09] MEDS: VENLAFAXINE HCL 75 MG E.R. CAPSULES PO SCH (10:02)
[2022-05-09] MEDS: POTASSIUM CHLORIDE TABS 20 MEQ TABLET.ER (FP) PO SCH (10:02)
[2022-05-09] MEDS: METOPROLOL TARTRATE 25 MG TABLET (FP) PO SCH ×2 (10:03→21:27)
[2022-05-09 10:44] VITALS: RESP 18; BMI 31.4
[2022-05-09] MEDS ORDERED: LACTULOSE 20 GM/30 ML UDC (FOR ORAL USE ONLY) PO ONE (11:22)
[2022-05-09] MEDS: FLUTICASONE/UMECLIDIN/VILANTER(200-62.5-25 TRELEGY ELLIPTA) INAHLER IH SCH (12:03)
[2022-05-09] MEDS ORDERED: metroNIDAZOLE 250 MG TABLET PO SCH ×2 (14:00→18:45)
[2022-05-09] MEDS ORDERED: ACETAMINOPHEN 1000 MG/100 ML BAG IVPB PRN (14:26)
[2022-05-09] MEDS: ATORVASTATIN CA 80 MG TABLET (FP) PO SCH (21:27)
[2022-05-09] MEDS: traZODone HCL 100 MG TABLET (FP) PO SCH (21:28)
[2022-05-09] MEDS: metroNIDAZOLE 250 MG TABLET PO SCH (21:28)
[2022-05-10] MEDS: POLYETHYLENE GLYCOL (HEALTHYLAX) 3350 17 GM PACKET PO SCH ×3 (05:18→22:29)
[2022-05-10] MEDS: methaDONE HCL 40 MG DISPERSABLE TABLET PO SCH (05:18)
[2022-05-10] MEDS: metroNIDAZOLE 250 MG TABLET PO SCH ×3 (05:18→22:29)
[2022-05-10] MEDS: LEVOTHYROXINE 100 MCG, LEVOTHYROXINE 75 MCG PO SCH (06:07)
[2022-05-10] MEDS: ALBUTEROL SO4 0.083% IH SOL 2.5 MG/3 ML VIAL.NEB. NEB SCH ×4 (07:45→21:33)
[2022-05-10 08:40] LABS: HEMATOCRIT 30.7 % (32.4-45.2); MCH 30.1 pg (25.7-33.7); MCHC 32.7 g/dl (32.0-36.0); MEAN CELL VOLUME 92.1 fl (80-96); MEAN PLT VOLUME 8.1 fl (7.5-11.1); PLATELET COUNT 202 10^3/uL (134-434); RBC 3.33 M/mm3 (3.60-5.2); RDW 16.1 % (11.6-15.6); WHITE BLOOD COUNT 12.5 K/mm3 (4.0-10.0)
[2022-05-10] MEDS: amLODIPine BESYLATE 5 MG TABLET (FP) PO SCH (09:06)
[2022-05-10] MEDS: VENLAFAXINE HCL 75 MG E.R. CAPSULES PO SCH (09:06)
[2022-05-10] MEDS: CLOPIDOGREL BISULFATE 75 MG TABLET (FP) PO SCH (09:06)
[2022-05-10] MEDS: PANTOPRAZOLE 40 MG TABLET PO SCH (09:06)
[2022-05-10] MEDS: MAGNESIUM OXIDE 400 MG TABLET (FP) PO SCH ×2 (09:07→22:29)
[2022-05-10] MEDS: METOPROLOL TARTRATE 25 MG TABLET (FP) PO SCH ×2 (09:07→22:28)
[2022-05-10] MEDS: ENOXAPARIN NA (PORCINE) 40 MG/0.4 ML DISP.SYRIN SQ SCH (09:07)
[2022-05-10] MEDS: MULTIVITAMINS (DAILY MVI) TABLET (FP) PO SCH (09:07)
[2022-05-10] MEDS: LOSARTAN POTASSIUM 50 MG TABLET PO SCH (09:07)
[2022-05-10] MEDS: ASPIRIN 81 MG CHEWABLE TABLETS PO SCH (09:07)
[2022-05-10] MEDS: FLUTICASONE/UMECLIDIN/VILANTER(200-62.5-25 TRELEGY ELLIPTA) INAHLER IH SCH (09:08)
[2022-05-10 09:16] LABS: CALCIUM 8.7 mg/dL (8.5-10.1)
[2022-05-10 09:17] LABS: ALBUMIN 2.8 g/dl (3.4-5.0); BLOOD UREA NITROGEN 21.9 mg/dL (7-18); MAGNESIUM 2.4 mg/dL (1.8-2.4)
[2022-05-10 09:20] LABS: PHOSPHOROUS 3.8 mg/dL (2.5-4.9)
[2022-05-10 09:21] LABS: BILIRUBIN,TOTAL 0.4 mg/dL (0.2-1); TOT PROT 6.1 g/dl (6.4-8.2)
[2022-05-10] MEDS ORDERED: ERGOCALCIFEROL (VIT D2) 50,000 UNIT (1.25 MG) CAPSULE PO SCH (10:00)
[2022-05-10] MEDS: traZODone HCL 100 MG TABLET (FP) PO SCH (22:28)
[2022-05-10] MEDS: ATORVASTATIN CA 80 MG TABLET (FP) PO SCH (22:28)
[2022-05-11] MEDS: methaDONE HCL 40 MG DISPERSABLE TABLET PO SCH (05:31)
[2022-05-11] MEDS: metroNIDAZOLE 250 MG TABLET PO SCH ×2 (05:31→16:17)
[2022-05-11] MEDS: POLYETHYLENE GLYCOL (HEALTHYLAX) 3350 17 GM PACKET PO SCH ×2 (05:31→16:17)
[2022-05-11] MEDS: LEVOTHYROXINE 100 MCG, LEVOTHYROXINE 75 MCG PO SCH (06:50)
[2022-05-11] MEDS: ALBUTEROL SO4 0.083% IH SOL 2.5 MG/3 ML VIAL.NEB. NEB SCH ×3 (07:52→15:27)
[2022-05-11 09:47] LABS: BASO % 0.3 % (0-2.0); EOS % 3.5 % (0-4.5); HEMATOCRIT 29.2 % (32.4-45.2); HEMOGLOBIN 9.9 GM/dL (10.7-15.3); LYMPH % 16.5 % (8-40); MEAN CELL VOLUME 91.2 fl (80-96); MEAN PLT VOLUME 8.1 fl (7.5-11.1); MONO % 7.9 % (3.8-10.2); NEUT % 71.8 % (42.8-82.8); PLATELET COUNT 220 10^3/uL (134-434); RDW 16.1 % (11.6-15.6); WHITE BLOOD COUNT 8.3 K/mm3 (4.0-10.0)
[2022-05-11] MEDS: POTASSIUM CHLORIDE TABS 20 MEQ TABLET.ER (FP) PO SCH (09:49)
[2022-05-11] MEDS: VENLAFAXINE HCL 75 MG E.R. CAPSULES PO SCH (09:49)
[2022-05-11] MEDS: ENOXAPARIN NA (PORCINE) 40 MG/0.4 ML DISP.SYRIN SQ SCH (09:49)
[2022-05-11] MEDS: amLODIPine BESYLATE 5 MG TABLET (FP) PO SCH (09:50)
[2022-05-11] MEDS: MAGNESIUM OXIDE 400 MG TABLET (FP) PO SCH (09:50)
[2022-05-11] MEDS: LOSARTAN POTASSIUM 50 MG TABLET PO SCH (09:50)
[2022-05-11] MEDS: PANTOPRAZOLE 40 MG TABLET PO SCH (09:50)
[2022-05-11] MEDS: CLOPIDOGREL BISULFATE 75 MG TABLET (FP) PO SCH (09:50)
[2022-05-11] MEDS: ASPIRIN 81 MG CHEWABLE TABLETS PO SCH (09:50)
[2022-05-11] MEDS: METOPROLOL TARTRATE 25 MG TABLET (FP) PO SCH (09:50)
[2022-05-11] MEDS: MULTIVITAMINS (DAILY MVI) TABLET (FP) PO SCH (09:50)
[2022-05-11] MEDS: FLUTICASONE/UMECLIDIN/VILANTER(200-62.5-25 TRELEGY ELLIPTA) INAHLER IH SCH (09:51)
[2022-05-11] MEDS ORDERED: Methylnaltrexone Bromide 12 MG/0.6 ML KIT SQ SCH (10:00)
[2022-05-11 10:25] LABS: CALCIUM 8.5 mg/dL (8.5-10.1); MAGNESIUM 2.4 mg/dL (1.8-2.4)
[2022-05-11 10:28] LABS: CREATININE 0.9 mg/dL (0.55-1.3); PHOSPHOROUS 3.3 mg/dL (2.5-4.9)
[2022-05-11 20:48] VITALS: BP 126/66; PULSE 69; TEMP 97.5
== END 2022-05-11 21:45 | disposition home or self-care (01) | DRG 392 ==
LOC: JER 20:20 → JERBED 05-09 03:23 → J6S 05-09 08:56
PROVIDERS: ADMIT Internal Medicine; ATTEND Internal Medicine
DX: K52.89 Other specified noninfective gastroenteritis and colitis (principal); I50.22 Chronic systolic (congestive) heart failure; K56.41 Fecal impaction; E03.9 Hypothyroidism, unspecified; I11.0 Hypertensive heart disease with heart failure; I73.9 Peripheral vascular disease, unspecified; K21.9 Gastro-esophageal reflux disease without esophagitis; E78.5 Hyperlipidemia, unspecified; D72.829 Elevated white blood cell count, unspecified; I25.10 Atherosclerotic heart disease of native coronary artery without angina pectoris; F17.200 Nicotine dependence, unspecified, uncomplicated; Z99.81 Dependence on supplemental oxygen; K80.50 Calculus of bile duct without cholangitis or cholecystitis without obstruction; F41.8 Other specified anxiety disorders
CPT/HCPCS: 0241U-QW; 36415; 71045-TC-FY; 74177-TC; 74181-TC; 80048; 80053; 81003; 83605; 83690; 83735; 83880; 84100; 84443; 84484; 85025; 85027; 85610; 85730; 86850; 86900; 86901; 87086; 93005; 93010; 94640; 97116-GP; 97161-GP; 99285-25

== ENCOUNTER 2023-01-03 14:52 | Emergency (ER) | payer OTHER ==
[2023-01-03 15:15] VITALS: PULSE 62; RESP 18; TEMP 98.4; BMI 29.8
[2023-01-03] MEDS ORDERED: LIDOCAINE 1%/EPI 1:100000 (20 ML MULTI DOSE VIAL) PNB ONE (15:36)
[2023-01-03] MEDS ORDERED: LIDOCAINE 1%/EPI 1:100000 (50 ML MULTI DOSE VIAL) ONE (15:40)
[2023-01-03 15:50] VITALS: BP 142/70
[2023-01-03] MEDS ORDERED: DIPHTH,PERTUSS(ACELL),TET 0.5 ML DISP.SYRIN IM ONE ×2 (16:29→16:44)
== END 2023-01-03 17:07 | disposition home or self-care (01) ==
LOC: JERFT 14:52
PROC: 0HQKXZZ Repair Right Lower Leg Skin, External Approach (ICD-10-PCS; principal; 2023-01-03)
PROC: 3E0234Z Introduction of Serum, Toxoid and Vaccine into Muscle, Percutaneous Approach (ICD-10-PCS; 2023-01-03)
DX: S81.811A Laceration without foreign body, right lower leg, initial encounter (principal); W20.8XXA Other cause of strike by thrown, projected or falling object, initial encounter; Y92.009 Unspecified place in unspecified non-institutional (private) residence as the place of occurrence of the external cause
CPT/HCPCS: 90715; 99282-25

== ENCOUNTER 2023-01-31 08:28 | Emergency (ER) | payer OTHER ==
[2023-01-31 08:41] VITALS: BP 134/62; PULSE 61; RESP 17; TEMP 98.3; BMI 29.8
[2023-01-31] MEDS ORDERED: SODIUM CHLORIDE 1,000 ML IV STA (09:34)
[2023-01-31] MEDS ORDERED: CEFAZOLIN 1 GM in DEXTROSE 5%-WATER - 50 ML IVPB ONE (09:34)
[2023-01-31] MEDS ORDERED: ceFAZolin SODIUM 1 GM VIAL ONE (09:50)
[2023-01-31 10:51] LABS: BASO % 0.4 % (0-2.0); EOS % 5.9 % (0-4.5); HEMATOCRIT 35.8 % (32.4-45.2); HEMOGLOBIN 11.6 GM/dL (10.7-15.3); LYMPH % 20.2 % (8-40); MCH 29.7 pg (25.7-33.7); MCHC 32.5 g/dl (32.0-36.0); MEAN CELL VOLUME 91.5 fl (80-96); MEAN PLT VOLUME 8.5 fl (7.5-11.1); MONO % 6.9 % (3.8-10.2); NEUT % 66.6 % (42.8-82.8); PLATELET COUNT 244 10^3/uL (134-434); RBC 3.92 M/mm3 (3.60-5.2); RDW 17.3 % (11.6-15.6); WHITE BLOOD COUNT 8.1 K/mm3 (4.0-10.0)
[2023-01-31 11:11] LABS: POTASSIUM 4.5 mmol/L (3.5-5.1)
[2023-01-31 11:23] LABS: ALBUMIN 3.3 g/dl (3.4-5.0); BLOOD UREA NITROGEN 12.6 mg/dL (7-18)
[2023-01-31 11:27] LABS: CREATININE 0.8 mg/dL (0.55-1.3)
[2023-01-31 11:28] LABS: TOT PROT 7.3 g/dl (6.4-8.2)
[2023-01-31 12:02] LABS: BILIRUBIN,TOTAL 0.4 mg/dL (0.2-1)
[2023-01-31] MEDS ORDERED: MUPIROCIN 2% TOPICAL OINTMENT 22 GM TUBE TP ONE (12:21)
== END 2023-01-31 13:38 | disposition home or self-care (01) ==
LOC: JER 08:28 → JERFT 08:28 → JER 13:38
PROC: 3E03329 Introduction of Other Anti-infective into Peripheral Vein, Percutaneous Approach (ICD-10-PCS; principal; 2023-01-31)
PROC: 3E0337Z Introduction of Electrolytic and Water Balance Substance into Peripheral Vein, Percutaneous Approach (ICD-10-PCS; 2023-01-31)
DX: Z48.02 Encounter for removal of sutures (principal); L03.115 Cellulitis of right lower limb
CPT/HCPCS: 36415; 80053; 85025; 87040; 93971-TC; 99284-25